=== PATIENT | male | born 1935 | race Caucasian/White ===

== ENCOUNTER 2017-12-09 10:17 | Inpatient (IN) ==
--- NOTE | 2017-12-09 11:11 | ED ---
HPI General Chief complaint: Epistaxis Stated complaint: medical/transfer from [facility] Time Seen by Provider: 12/09/17 10:45 History of Present Illness HPI Narrative: This is an 82-year-old man with epistaxis that was transferred from [facility] in [place] due to apparently no ENT coverage in that town. Patient is on Xarelto and baby aspirin. He arrives with normal vital signs and bilateral Rhino Rocket's in place. He says blood is occasionally trickling down the back of his throat. His Rhino Rocket are both soaked but not bleeding through. Symptom severity is moderate. No alleviating factors. Symptoms exacerbated by his anticoagulants. He has no nasal trauma. Duration 1 day Related Data Allergies Allergy/AdvReac Type Severity Reaction Status Date / Time Sulfa (Sulfonamide Allergy Blister Verified 12/09/17 10:33 Antibiotics) Review of Systems ROS: all other systems reviewed are negative [facility] Social History Social History Substance History: No History of Abuse Second Hand Smoke Exposure: No Smoking Status: Former smoker Tobacco Type: Cigarettes How Often Do You Have a Drink Containing Alcohol: Never Recent Travel in [facility] within the Last 8 Weeks: No Recent Out of Country Travel within the Last 8 Weeks: No Immunization History Tetanus Immunization: Unsure Exam Narrative Exam Narrative: GENERAL: Well-nourished, well-developed patient in no apparent distress. SKIN: Focused skin assessment reveals no rash and nodules. Skin is Warm and dry. HEAD: Atraumatic. Normocephalic. EYES: Pupils equal and round. No scleral icterus. No injection or drainage. ENT: Has bilateral Rhino Rocket in position. The Rhino Rocket blood soaked but not dripping blood. Mucous membranes pink and moist. There is some dried blood in the back of the throat. NECK: Trachea midline. No JVD. CARDIOVASCULAR: Irregularly irregular rhythm. No murmur appreciated. Rate is normal RESPIRATORY: No accessory muscle use. Clear to auscultation. Breath sounds equal bilaterally. GASTROINTESTINAL: Abdomen soft, non-tender, nondistended. Hepatic and splenic margins not palpable. MUSCULOSKELETAL: No obvious deformities. No clubbing. No cyanosis. No edema. NEUROLOGICAL: Awake and alert. No obvious cranial nerve deficits. Motor grossly within normal limits. Normal speech. PSYCHIATRIC: Appropriate mood and affect; insight and judgment normal. Course Initial Documented Vital Signs Temperature 98.6 F 12/09/17 10:27 Pulse Rate 88 12/09/17 10:27 Respiratory Rate 18 12/09/17 10:27 Blood Pressure 126/73 12/09/17 10:27 Pulse Oximetry 96 12/09/17 10:27 Last Documented Vital Signs Temperature 98.6 F 12/09/17 10:27 Pulse Rate 88 12/09/17 10:27 Respiratory Rate 18 12/09/17 10:27 Blood Pressure 126/73 12/09/17 10:27 Pulse Oximetry 96 12/09/17 10:27 Medical Decision Making MDM Narrative Medical decision making narrative: This is a 82-year-old male on blood thinners sent to see ear nose throat with epistaxis and bilateral Rhino Rocket's. His vital signs are normal. His labs have been done. He is anemic with a hemoglobin of 8.6. I placed a call to Dr. Cartagena who has accepted this patient to see if he would rather hospitalize him or come to the emergency room and see the patient. I reviewed the case with both ENT physician Dr. Cartagena and hospitalist. Patient will be admitted. Medical Screen Exam Complete: Yes Emergency Medical Condition: Yes Discharge Plan Discharge Disposition Patient Disposition: 30 Still Patient Discharge Details Diagnosis: Epistaxis, Anticoagulated Physicians Team ED Provider: Tomer Jackman Primary Care Provider: UNKNOWN, Discharge Interventions Interventions: Vital Signs Last Done: 12/09/17 10:56 Status ED Status: With Doctor
--- NOTE | 2017-12-09 13:31 | P.HPIM ---
History of Present Illness Primary Care Physician: UNKNOWN Chief Complaint: Nose bleeding History of Present Illness: 82-year-old white male with a history of atrial fibrillation on chronic anticoagulation Xarelto, coronary artery disease, hypertension who had spontaneous nosebleed starting at 1:00 yesterday afternoon who went to [facility] emergency room and now transferred here in [place] emergency room for evaluation with ENT consult. Since packing was done he still has had on and off nasal bleeding and currently has a rhino pack again. Of note, patient was also diagnosed with iron deficiency anemia and had a comprehensive endoscopy and colonoscopy performed 1 week ago which showed gastritis and colon polyps. He states at that time he did not require transfusion. He denies any heart palpitations nor any dizziness or nor shortness of breath at this time. He denies any nasal pain at this time. He has not taken his home Xarelto since he went to the emergency room. - Diagnosis (1) Epistaxis (2) Anemia due to blood loss (3) Anemia, iron deficiency Review of Systems All other systems reviewed negative except as stated in HPI PMFSH - History History Provided By: Patient, Medical Record - Medical History Medical History: Medical History (Last Updated 12/09/17 @ 13:24 by Claire Valadez MD) Atrial fibrillation Coronary artery disease Diabetes Glaucoma High cholesterol Hypertension Osteoarthritis - Surgical History Surgical History: Surgical History (Last Updated 12/09/17 @ 13:27 by Claire Valadez MD) History of arthroscopic procedure on shoulder Hx of CABG Hx of cholecystectomy Hx of hernia repair Hx of joint replacement - Family History Family History: Family History (Last Updated 12/09/17 @ 13:27 by Claire Valadez MD) Other Family history normal - Social History I have reviewed the patient's Social History: Yes - Tobacco History Second Hand Smoke Exposure: No Tobacco Use In Past 30 Days: No Smoking Status: Former smoker Tobacco Type: Cigarettes - Alcohol History How Often Do You Have a Drink Containing Alcohol: Never - Substance Use History Substance History: No History of Abuse - Travel History Recent Travel in the [place] Within the Last 8 Weeks: No Recent Travel Out of the Country Within the Last 8 Weeks: No - Immunization History Tetanus Immunization: Unsure Medications and Allergies Active Medications: Active Medications Acetaminophen (Tylenol) 650 mg PO Q4H PRN PRN Reason: Temp > 100.4 Al Hydroxide/Mg Hydroxide (Milk Of Magnesia Liq) 30 ml PO Q12H PRN PRN Reason: Mild Constipation Bisacodyl (Dulcolax Supp) 10 mg RECTAL DAILY PRN PRN Reason: SEVERE CONSITIPATION Potassium Chloride/Dextrose/Sod Cl (D5w/1/2ns + Kcl 20 Meq Inj) 1,000 mls @ 80 mls/hr IV.CONT .[id number] MARIA M Stop: 12/10/17 01:59 Lactulose (Lactulose Liq) 30 ml PO DAILY PRN PRN Reason: SEVERE CONSITIPATION Ondansetron HCl (Zofran Inj) 4 mg IV.PUSH Q6H PRN PRN Reason: NAUSEA OR VOMITING Sennosides (Senokot) 17.2 mg PO Q12H PRN PRN Reason: Moderate Constipation Allergies Allergy/AdvReac Type Severity Reaction Status Date / Time Sulfa (Sulfonamide Allergy Blister Verified 12/09/17 10:33 Antibiotics) Home Medications Medication Instructions Recorded Confirmed Type aspirin 81 mg PO QAM 12/09/17 12/09/17 History cyanocobalamin (vitamin B-12) 1,000 mcg PO DAILY 12/09/17 12/09/17 History [Vitamin B-12] docusate sodium [Colace] 100 mg PO DAILY PRN 12/09/17 12/09/17 History dutasteride [Avodart] 0.5 mg PO HS 12/09/17 12/09/17 History fluticasone [Flonase Allergy 2 spray INTRANASAL HS 12/09/17 12/09/17 History Relief] furosemide [Lasix] 20 mg PO DAILY 12/09/17 12/09/17 History glyburide-metformin 1 tab PO BID 12/09/17 12/09/17 History hydrochlorothiazide 25 mg PO QAM 12/09/17 12/09/17 History inulin 2 tab PO HS 12/09/17 12/09/17 History loratadine [Claritin] 10 mg PO QAM 12/09/17 12/09/17 History metoprolol succinate 25 mg PO BID 12/09/17 12/09/17 History brpxywhm-iaq-MI-lycopen-lutein 1 tab PO QPM 12/09/17 12/09/17 History [Centrum Silver] nitroglycerin 0.4 mg SUBLINGUAL Q5-15M PRN 12/09/17 12/09/17 History omeprazole 40 mg PO QAM 12/09/17 12/09/17 History potassium chloride [Klor-Con 10] 10 meq PO BID 12/09/17 12/09/17 History pravastatin 40 mg PO QPM 12/09/17 12/09/17 History rivaroxaban [Xarelto] 15 mg PO QPM 12/09/17 12/09/17 History silodosin [Rapaflo] 4 mg PO DAILY PRN 12/09/17 12/09/17 History temazepam [Restoril] 15 mg PO HS PRN 12/09/17 12/09/17 History Exam Vital signs: Vital Signs 12/09/17 10:27 Temperature 98.6 F Pulse Rate 88 Respiratory Rate 18 Blood Pressure 126/73 Pulse Oximetry 96 Intake & Output 12/08/17 12/09/17 12/09/17 18:59 06:59 18:59 Weight 81.647 kg Narrative: GENERAL: Well-nourished well-developed white male no acute distress SKIN: Warm and dry. HEAD: Atraumatic. Normocephalic. EYES: Pupils equal and round. No scleral icterus. No injection or drainage. ENT: Intermittent bleeding from nasal mucosa, rhino packing in place NECK: Trachea midline. No JVD. CARDIOVASCULAR: Irregular rhythm and regular rate RESPIRATORY: No accessory muscle use. Clear to auscultation. Breath sounds equal bilaterally. GASTROINTESTINAL: Abdomen soft, non-tender, nondistended. Hepatic and splenic margins not palpable. MUSCULOSKELETAL: Extremities without clubbing, cyanosis, trace edema NEUROLOGICAL: Awake and alert. No obvious cranial nerve deficits. Hard of hearing, motor grossly within normal limits. Five out of 5 muscle strength in the arms and legs. Normal speech. PSYCHIATRIC: Appropriate mood and affect; insight and judgment normal. Caprini VTE Risk Assessment Caprini VTE Risk Assessment: Moderate/High Risk (score >= 2) VTE Pharmacological Exception Reason: Active bleeding Caprini Risk Assessment Model: Point Value = 1 Point Value = 2 Point Value = 3 Point Value = 5 Age 41-60 Minor surgery BMI > 25 kg/m2 Swollen legs Varicose veins or History of unexplained or recurrent spontaneous Oral contraceptives or hormone replacement Sepsis (< 1 month) Serious lung disease, including pneumonia (< 1 month) Abnormal pulmonary function Acute myocardial infarction Congestive heart failure (< 1 month) History of inflammatory bowel disease Medical patient at bed rest Age 61-74 Arthroscopic surgery Major open surgery (> 45 min) Laparoscopic surgery (> 45 min) Malignancy Confined to bed (> 72 hours) Immobilizing plaster cast Central venous access Age >= 75 History of VTE Family history of VTE Factor V Leiden Prothrombin [id number] Lupus anticoagulant Anticardiolipin antibodies Elevated serum homocysteine Heparin-induced thrombocytopenia Other congenital or acquired thrombophilia Stroke (< 1 month) Elective arthroplasty Hip, pelvis, or leg fracture Acute spinal cord injury (< 1 month) Prophylaxis Regimen: Total Risk Factor Score Risk Level Prophylaxis Regimen 0-1 Low Early ambulation 2 Moderate Order ONE of the following: *Sequential Compression Device (SCD) *Heparin 5000 units SQ BID 3-4 Higher Order ONE of the following medications: *Heparin 5000 units SQ TID *Enoxaparin/Lovenox 40 mg SQ daily (WT < 150 kg, CrCl > 30 mL/min) *Enoxaparin/Lovenox 30 mg SQ daily (WT < 150 kg, CrCl > 10-29 mL/min) *Enoxaparin/Lovenox 30 mg SQ BID (WT < 150 kg, CrCl > 30 mL/min) AND/OR *Sequential Compression Device (SCD) 5 or more Highest Order ONE of the following medications: *Heparin 5000 units SQ TID (Preferred with Epidurals) *Enoxaparin/Lovenox 40 mg SQ daily (WT < 150 kg, CrCl > 30 mL/min) *Enoxaparin/Lovenox 30 mg SQ daily (WT < 150 kg, CrCl > 10-29 mL/min) *Enoxaparin/Lovenox 30 mg SQ BID (WT < 150 kg, CrCl > 30 mL/min) AND *Sequential Compression Device (SCD) Assessment and Plan - Assessment (1) Epistaxis Code(s): R04.0 - Epistaxis Status: Acute (2) Anemia due to blood loss Code(s): D50.0 - Iron deficiency anemia secondary to blood loss (chronic) Status: Acute (3) Anemia, iron deficiency Code(s): D50.9 - Iron deficiency anemia, unspecified Status: Chronic - Plan 82-year-old white male with a history of chronic atrial fibrillation on home Xarelto, coronary artery disease, hypertension presented to the [facility] emergency room with spontaneous nosebleed and was transferred here for ENT evaluation 1. Acute spontaneous epistaxis likely due to Xarelto usestop anticoagulation, monitor hemoglobin. Status post nasal packing and await ENT evaluation for further recommendations. 2. Acute on chronic iron deficiency anemia due to spontaneous nosebleed hemoglobin 8.6 in [facility] emergency room, will repeat another level this afternoon. Transfuse if hemoglobin continues to drop. 3. Coronary artery disease history-hold aspirin due to epistaxis, continue home metoprolol 4. History of chronic atrial fibrillationstop home Xarelto 5. DVT prophylaxisbilateral SCDs, no anticoagulation due to bleed. 6. Diabetes mellitus type 2currently n.p.o. status until evaluated by ENT, will hold home medications. Will start sliding scale insulin with coverage. (3) Anemia, iron deficiency Qualifiers: Iron deficiency anemia type: unspecified iron deficiency Qualified Code(s): D50.9 - Iron deficiency anemia, unspecified
[2017-12-09] MEDS ORDERED: Dextrose 50% in Water 50 ML Vial IV.PUSH PRN (13:33)
[2017-12-09] MEDS ORDERED: Bisacodyl 10 MG Supp RECTAL PRN (15:00)
[2017-12-09] MEDS ORDERED: Acetaminophen 325 MG Tablet PO PRN (15:00)
[2017-12-09] MEDS ORDERED: KCL 20 mEq/D5W/NaCl 0.45% Inj 1,000 ML IV.CONT SCH (15:00)
[2017-12-09] MEDS: hydroCHLOROthiazide 25 MG Tablet PO SCH (15:32)
[2017-12-09] MEDS: Loratadine 10 MG Tablet PO SCH (15:32)
[2017-12-09] MEDS: Insulin NovoLOG Aspart Correctional Sugar Inj SQ SCH ×3 (17:22→21:02)
[2017-12-09 20:17] LABS: Hematocrit 23.8 % (39.0-51.0); Hemoglobin 7.6 gm/dL (13.0-17.0)
[2017-12-09] MEDS: Finasteride 5 MG Tablet PO SCH (20:51)
--- NOTE | 2017-12-09 22:03 | MB ---
cc: Bandar Cartagena MD DATE: 12/09/2017 CHIEF COMPLAINT: Epistaxis. HISTORY OF PRESENT ILLNESS: The patient is a pleasant 82-year-old male with multiple medical history and anemia. He was noted to have severe epistaxis which necessitated having bilateral Rhino Rockets placed. Because of the challenges with this and the patient still noted to have oozing at the time of the placement, the patient was transferred to [place] for further management and observation. Of note, his hemoglobin was in the 8's prior to transfer. The patient is quite stable today, however. He has had some trickling through his nose and into the back of his throat and his nose, but he has done well over the last few hours. PHYSICAL EXAMINATION: This evening, the patient is currently stable and oriented. Nasal packs are in place bilaterally with no active bleeding. On examination of the oropharynx as well, there is no active bleeding currently. ASSESSMENT: Refractory epistaxis. PLAN: Because the patient has a history of blood thinners as well as multiple medical problems and challenging epistaxis needing bilateral nasal packing, the patient will need to be in the hospital at least the next 48 hours, possibly 72 depending on how stable his H and H are as well as how well he is medically overall with his multiple medical problems. He is on blood thinners. I discussed with nursing with his meals having nothing that would increase risk of nosebleeds. That would include any kind of hot foods or any foods needing any heavy chewing as both of these can produce a blood clot and cause further nosebleeds. I also recommend the patient having better control of his high blood pressure as it is the 150s systolic this evening. I appreciate the hospital staff for overall care of the patient. Bandar Cartagena MD PCC/jl , 09:34 PM , 09:43 PM
[2017-12-10 07:50] LABS: Baso # (Auto) 0.1 th/mm3 (0.0-0.2); Baso % (Auto) 1.1 % (0.0-2.0); Eos # (Auto) 0.1 th/mm3 (0.0-0.4); Eos % (Auto) 1.2 % (0.0-4.0); Hematocrit 22.7 % (39.0-51.0); Hemoglobin 7.1 gm/dL (13.0-17.0); Lymph # (Auto) 0.9 th/mm3 (1.0-4.8); Lymph % (Auto) 13.4 % (9.0-44.0); Mean Corpuscular HGB Conc 31.2 % (32.0-36.0); Mean Corpuscular Volume 76.8 fL (80.0-100.0); Mean Platelet Volume 8.3 fL (7.0-11.0); Mono # (Auto) 0.9 th/mm3 (0.0-0.9); Mono % (Auto) 13.7 % (0.0-8.0); Neut # (Auto) 4.7 th/mm3 (1.8-7.7); Neut % (Auto) 70.6 % (16.0-70.0); Platelet Count 180 th/mm3 (150-450); Red Blood Count 2.96 mil/mm3 (4.50-5.90); Red Cell Distribution Width 19.1 % (11.6-17.2); White Blood Count 6.7 th/mm3 (4.0-11.0)
[2017-12-10] MEDS: Loratadine 10 MG Tablet PO SCH (09:42)
[2017-12-10] MEDS: Furosemide 20 MG Tablet PO SCH (09:42)
[2017-12-10] MEDS: Insulin NovoLOG Aspart Correctional Sugar Inj SQ SCH ×4 (09:42→21:19)
[2017-12-10] MEDS: hydroCHLOROthiazide 25 MG Tablet PO SCH (09:43)
--- NOTE | 2017-12-10 10:08 | P.PN ---
Subjective Interval history: Follow up for epistaxis. The patient reports his nasal bleeding has slowed down , only small amount of blood trickling around the nares. He denies any headache or lightheadedness. Denies any chest pain or shortness of breath. He states he has had the Rhino Rockets in place since Wednesday 12/06. Physical Exam Vital signs: Vital Signs 12/09/17 10:27 12/09/17 14:00 12/09/17 16:39 Temperature 98.6 F 96.9 F L Pulse Rate 88 89 80 Respiratory Rate 18 17 16 Blood Pressure 126/73 132/81 151/73 H Pulse Oximetry 96 96 91 L 12/09/17 20:00 12/10/17 00:00 12/10/17 04:00 Temperature 97.9 F 98.2 F 97.9 F Pulse Rate 94 H 83 92 H Respiratory Rate 16 20 20 Blood Pressure 151/76 H 150/77 H 136/75 Pulse Oximetry 95 95 97 12/10/17 08:00 Temperature 97.5 F L Pulse Rate 85 Respiratory Rate 18 Blood Pressure 137/70 Pulse Oximetry 93 L Intake & Output 12/09/17 12/10/17 12/10/17 18:59 06:59 18:59 Intake Total 1000 / 1000 Balance 1000 / 1000 Weight 81.647 kg Intake: IV 1000 / 1000 D5W/1/2NS + KCL 20 mEq Inj 1, 1000 / 1000 000 ML @ 80 mls/hr IV.CONT . [id number] [facility] Rx#:[id number] Other: Date of Last Bowel Movement 12/09/17 # Bowel Movements 2 Narrative: GENERAL: Well-nourished, well-developed pleasant elderly male patient in [facility]. SKIN: Warm and dry. No rash. HEENT: Normocephalic. Atraumatic. Mucous membranes pink and moist. Bilateral Rhino Rockets in place, with some blood around the nares without active drainage. Posterior oropharynx clear. CARDIOVASCULAR: Irregular rate and rhythm. 2/6 murmur noted. RESPIRATORY: No accessory muscle use. Clear to auscultation. Breath sounds equal bilaterally. GASTROINTESTINAL: Abdomen soft, non-tender, nondistended. Normoactive bowel sounds x4. MUSCULOSKELETAL: No obvious deformities. Extremities without clubbing, cyanosis , or edema. NEUROLOGICAL: Awake and alert. No obvious cranial nerve deficits. Motor grossly within normal limits. Moving all extremities spontaneously. Normal speech. PSYCHIATRIC: Appropriate mood and affect; insight and judgment normal. Results - Labs CBC & Chem 7: 12/10/17 07:15 Laboratory Results - last 24 hr 12/09/17 12/09/17 12/09/17 17:04 17:05 19:06 WBC RBC Hgb 7.6 L Hct 23.8 L MCV MCH MCHC RDW Plt Count MPV Neut % (Auto) Lymph % (Auto) [place] % (Auto) Eos % (Auto) Baso % (Auto) Neut # (Auto) Lymph # (Auto) [place] # (Auto) Eos # (Auto) Baso # (Auto) WBC Differential Differential Comment POC Glucose 203 H 198 H 12/09/17 12/10/17 12/10/17 20:59 07:15 08:27 WBC 6.7 RBC 2.96 L Hgb 7.1 L Hct 22.7 L MCV 76.8 L MCH 24.0 L MCHC 31.2 L RDW 19.1 H Plt Count 180 MPV 8.3 Neut % (Auto) 70.6 H Lymph % (Auto) 13.4 [place] % (Auto) 13.7 H Eos % (Auto) 1.2 Baso % (Auto) 1.1 Neut # (Auto) 4.7 Lymph # (Auto) 0.9 L [place] # (Auto) 0.9 Eos # (Auto) 0.1 Baso # (Auto) 0.1 WBC Differential . Differential Comment Auto diff final POC Glucose 250 H 217 H Assessment and Plan - Assessment (1) Epistaxis Code(s): R04.0 - Epistaxis Status: Acute (2) Anemia due to blood loss Code(s): D50.0 - Iron deficiency anemia secondary to blood loss (chronic) Status: Acute (3) Anemia, iron deficiency Code(s): D50.9 - Iron deficiency anemia, unspecified Status: Chronic - Plan 82-year-old white male with a history of chronic atrial fibrillation on home Xarelto, coronary artery disease, hypertension presented to the [facility] emergency room with spontaneous nosebleed and was transferred here for ENT evaluation Acute spontaneous epistaxis: secondary to Xarelto/aspirin use. -Continue bilateral Rhino Rockets placed at [facility] on 12/06 -hold anticoagulation for now -monitor serial H&H, currently Hgb 7.1 -Consult ENT, appreciate recommendations, recommends continued hospitalization/observation x48-72 hours Acute on chronic iron deficiency anemia: due to spontaneous nosebleed -hemoglobin 8.6 in [facility] ED, now 7.6 --> 7.1 -will repeat another level this afternoon. 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 -hold aspirin due to epistaxis -continue home metoprolol Atrial fibrillation: chronic, rate cnotrolled -stop home Xarelto with ongoing epistaxis and anemia -follow up with [facility] returner as outpatient Diabetes mellitus type 2: chronic -holding patient's metformin -Monitor Accu-checks and cover with SSI DVT prophylaxisbilateral SCDs, no anticoagulation due to bleed. (3) Anemia, iron deficiency Qualifiers: Iron deficiency anemia type: unspecified iron deficiency Qualified Code(s): D50.9 - Iron deficiency anemia, unspecified
[2017-12-10 16:09] LABS: Hematocrit 22.5 % (39.0-51.0); Hemoglobin 7.1 gm/dL (13.0-17.0)
[2017-12-10] MEDS: Finasteride 5 MG Tablet PO SCH (21:20)
[2017-12-11 08:28] LABS: Mean Corpuscular HGB Conc 31.9 % (32.0-36.0); Mean Corpuscular Hemoglobin 24.5 pg (27.0-34.0); Mean Corpuscular Volume 76.7 fL (80.0-100.0); Mean Platelet Volume 8.6 fL (7.0-11.0); Platelet Count 165 th/mm3 (150-450); Red Blood Count 2.77 mil/mm3 (4.50-5.90); Red Cell Distribution Width 19.3 % (11.6-17.2); White Blood Count 6.7 th/mm3 (4.0-11.0)
[2017-12-11 08:55] LABS: Carbon Dioxide 29.2 meq/L (21.0-32.0)
[2017-12-11 09:07] LABS: Hemoglobin 6.8 gm/dL (13.0-17.0)
[2017-12-11] MEDS: hydroCHLOROthiazide 25 MG Tablet PO SCH (09:07)
[2017-12-11 09:08] LABS: Hematocrit 21.3 % (39.0-51.0)
[2017-12-11] MEDS: Furosemide 20 MG Tablet PO SCH (09:08)
[2017-12-11] MEDS: Loratadine 10 MG Tablet PO SCH (09:08)
[2017-12-11] MEDS: Insulin NovoLOG Aspart Correctional Sugar Inj SQ SCH ×4 (09:19→20:40)
--- NOTE | 2017-12-11 09:33 | P.PN ---
Subjective Interval history: Follow up for epistaxis, anemia. The patient reports some continued trickling of blood around the nares overnight. Denies any hemoptysis or blood in the oropharynx. Hemoglobin dropped to 6.8, agrees to blood transfusion. The patient reports chronic history of iron deficiency anemia and is supposed to be on iron supplements. He denies any melena or hematochezia. Denies any abdominal pain, nausea/vomiting, or diarrhea. Denies any chest pain. He states he has shortness of breath at baseline since his heart surgeries, but denies any recent worsening. Denies any lightheadedness/dizziness. He has no other medical complaints at this time. Physical Exam Vital signs: Vital Signs 12/10/17 12:00 12/10/17 16:00 12/10/17 20:00 Temperature 97.5 F L 97.6 F 97.6 F Pulse Rate 86 76 68 Respiratory Rate 18 20 17 Blood Pressure 132/68 163/84 H 154/93 H Pulse Oximetry 97 96 98 12/11/17 00:00 12/11/17 04:00 12/11/17 08:00 Temperature 98.0 F 97.5 F L 99.1 F Pulse Rate 88 77 96 H Respiratory Rate 18 18 16 Blood Pressure 129/66 150/84 H 101/66 Pulse Oximetry 96 95 96 Intake & Output 12/10/17 12/11/17 12/11/17 18:59 06:59 18:59 Intake Total 600 / 600 Output Total 250 / 250 Balance 350 / 350 Intake: Oral 600 / 600 Output: Urine 250 / 250 Other: # Voids 1 4 Date of Last Bowel Movement 12/10/17 12/10/17 # Bowel Movements 1 Narrative: GENERAL: Well-nourished, well-developed pleasant elderly male patient in [facility]. SKIN: Warm and dry. No rash. HEENT: Normocephalic. Atraumatic. Mucous membranes pink and moist. Bilateral Rhino Rockets in place, with some dried blood around the nares without active drainage. Posterior oropharynx clear. CARDIOVASCULAR: Irregular rate and rhythm. 2/6 murmur noted. RESPIRATORY: No accessory muscle use. Clear to auscultation. Breath sounds equal bilaterally. GASTROINTESTINAL: Abdomen soft, non-tender, nondistended. Normoactive bowel sounds x4. MUSCULOSKELETAL: No obvious deformities. Extremities without clubbing, cyanosis , or edema. NEUROLOGICAL: Awake and alert. No obvious cranial nerve deficits. Motor grossly within normal limits. Moving all extremities spontaneously. Normal speech. PSYCHIATRIC: Appropriate mood and affect; insight and judgment normal. Results - Labs CBC & Chem 7: 12/11/17 06:28 12/11/17 06:28 Laboratory Results - last 24 hr 12/10/17 12/10/17 12/10/17 12:05 15:50 17:56 WBC RBC Hgb 7.1 L Hct 22.5 L MCV MCH MCHC RDW Plt Count MPV Sodium Potassium Chloride Carbon Dioxide Anion Gap BUN Creatinine Estimated GFR POC Glucose 312 H 77 Random Glucose Calcium 12/10/17 12/11/17 12/11/17 21:13 06:28 06:28 WBC 6.7 RBC 2.77 L Hgb 6.8 L* Hct 21.3 L MCV 76.7 L MCH 24.5 L MCHC 31.9 L RDW 19.3 H Plt Count 165 MPV 8.6 Sodium 140 Potassium 3.0 L Chloride 104 Carbon Dioxide 29.2 Anion Gap 7 BUN 29 H Creatinine 1.03 Estimated GFR 69 L POC Glucose 208 H Random Glucose 146 H Calcium 9.0 12/11/17 08:13 WBC RBC Hgb Hct MCV MCH MCHC RDW Plt Count MPV Sodium Potassium Chloride Carbon Dioxide Anion Gap BUN Creatinine Estimated GFR POC Glucose 186 H Random Glucose Calcium Assessment and Plan - Assessment (1) Epistaxis Code(s): R04.0 - Epistaxis Status: Acute (2) Anemia due to blood loss Code(s): D50.0 - Iron deficiency anemia secondary to blood loss (chronic) Status: Acute (3) Anemia, iron deficiency Code(s): D50.9 - Iron deficiency anemia, unspecified Status: Chronic - Plan 82-year-old white male with a history of chronic atrial fibrillation on home Xarelto, coronary artery disease, hypertension presented to the [place] emergency room with spontaneous nosebleed and was transferred here for ENT evaluation Acute spontaneous epistaxis: secondary to Xarelto/aspirin use. -Continue bilateral Rhino Rockets placed at [facility] on 12/06 -hold anticoagulation for now -monitor serial H&H, currently Hgb 6.8, transfusing as below -Consult ENT, appreciate recommendations, recommends continued hospitalization/observation x48-72 hours Acute on chronic iron deficiency anemia: due to spontaneous nosebleed, rule out other etiology. Patient reports long hx of iron deficiency. 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 -hold aspirin due to epistaxis -continue home metoprolol Atrial fibrillation: chronic, rate controlled -stop home Xarelto with ongoing epistaxis and anemia -follow up with illuminator as outpatient (has illuminator in [place]) Diabetes mellitus type 2: chronic -holding patient's metformin -Monitor Accu-checks and cover with SSI DVT prophylaxisbilateral SCDs, no anticoagulation due to bleed. (3) Anemia, iron deficiency Qualifiers: Iron deficiency anemia type: unspecified iron deficiency Qualified Code(s): D50.9 - Iron deficiency anemia, unspecified
[2017-12-11] MEDS ORDERED: Sodium Chlor 0.9% Inj 250 ML IV.SIG SCH (10:00)
--- NOTE | 2017-12-11 13:07 | MB ---
cc: Bandar Cartagena MD DATE: 12/11/2017 Nursing has noted no nosebleeds at all today and in her reporting from last night, no bleeding then, either . Notes no bleeding, no coughing up any blood or signs of any blood from the nose at all recently. However, the patient continues to have a downward trending H and H with the nasal balloons in place bilaterally regardless. The patient is being prepped to get a transfusion today because of the hemoglobin decreased to 6.8 this morning and the hematocrit is 21.3. Recommend a full workup for another source of bleeding at this time, as the numbers are still trending downward. Furthermore, if there is any nose bleeding at all from the front of the nose or is seen at all dripping down the back of his throat at all, I recommend interventional radiology for treatment of any future nosebleeds as nasal packs were already in place and if that does not prove successful, then I recommend interventional radiology for the next step. Again, please consider any other sources of bleeding for this patient, be it GI bleed or any other sources and if there is any future nosebleeds I recommend interventional radiology. Thank you for this consultation. Please contact ENT with any other further concerns. Bandar Cartagena MD PCC/ct/pc , 10:33 AM , 10:40 AM MTDD
[2017-12-11 13:21] LABS: % Iron Saturation 4.8 % (20-50); Folate 18.7 ng/mL (3.1-17.5)
[2017-12-11] MEDS: Ferrous Sulfate 325 MG Tablet PO SCH ×2 (13:53→20:10)
[2017-12-11] MEDS: Finasteride 5 MG Tablet PO SCH (20:42)
[2017-12-11 23:03] LABS: INR 1.4 Ratio; Prothrombin Time 13.8 sec (9.8-11.6)
[2017-12-12] MEDS ORDERED: Phytonadione 5 MG/SWFI 5 ML Oral Syringe PO ONE (05:36)
[2017-12-12] MEDS ORDERED: Sodium Chloride 0.9% 2 ML Flush PRN IV.FLUSH (05:38)
[2017-12-12 07:05] LABS: Hematocrit 22.7 % (39.0-51.0); Hemoglobin 7.4 gm/dL (13.0-17.0); Mean Corpuscular HGB Conc 32.6 % (32.0-36.0); Mean Corpuscular Hemoglobin 25.1 pg (27.0-34.0); Mean Platelet Volume 8.7 fL (7.0-11.0); Platelet Count 165 th/mm3 (150-450); Red Blood Count 2.95 mil/mm3 (4.50-5.90); Red Cell Distribution Width 19.9 % (11.6-17.2); White Blood Count 6.2 th/mm3 (4.0-11.0)
[2017-12-12 07:29] LABS: Calcium 9.1 mg/dL (8.5-10.1); Carbon Dioxide 27.3 meq/L (21.0-32.0); Potassium 3.4 meq/L (3.5-5.1)
[2017-12-12] MEDS: Insulin NovoLOG Aspart Correctional Sugar Inj SQ SCH ×4 (07:48→22:37)
[2017-12-12] MEDS ORDERED: fentaNYL Citrate Inj 250 MCG/5 ML Ampul ONE (07:58)
--- NOTE | 2017-12-12 08:25 | P.RAD ---
Radiology Note 82 Y/O with continued epistaxis despite packing and discontinuation of Xelerto since 12/05. Pt. has been managed conservatively and continues to soak through the packing and has required transfusion. We are asked to proceed with embolization by Dr. Cartagena. The risk, benefits and potential complications were discussed. Pt understands there is a low risk of stroke and blindness. Signed consent obtained.
[2017-12-12] MEDS ORDERED: ceFAZolin 2 GM Premix Inj 2 GM/50 ML PIGGYBACK IV.SIG ONE (08:44)
[2017-12-12] MEDS ORDERED: Heparin 10,000 UNITS/10 ML Vial (for IV use) ONE ×2 (09:54→19:02)
[2017-12-12] MEDS ORDERED: Protamine Sulfate Inj 50 MG/5 ML Vial ONE ×2 (10:07→19:15)
--- NOTE | 2017-12-12 10:15 | P.RAD ---
Post Procedure Progress Note - Pre Procedure Diagnosis (1) Epistaxis - Post Procedure Diagnosis (1) Epistaxis - Procedure Information Procedure Date: 12/12/17 Supervising Radiologist: Davie Schultz MD Estimated blood loss (mL): 5 Anesthesia: Local, Conscious Sedation - Plan of Activity Patient to Unit: PACU Patient Condition: Good Additional Comments: Angio completed with embolization of the Left distal IMax territory. No active bleeding evident post embolization. Right side was not evaluated due to type III arch and cessation of bleeding post embolization of the left side. If patient has another episode of bleeding right side can be evaluated however embolization of this would be difficult secondary to arch configuration. Patient tolerated the procedure well. Neurologically intact post procedure Full report to follow See PACS Report for procedural detail/treatment.
--- NOTE | 2017-12-12 11:43 | P.PN ---
Subjective Interval history: Follow up for epistaxis, anemia. Patient seen status post angiogram with embolization procedure by IR. The patient is drowsy but arousable. He states he did not have any significant bleeding around the nares overnight. Denies any bleeding into the posterior oropharynx. Denies any headache, lightheadedness, dizziness, or chest pain. He has not yet had a bowel movement to collect stool Hemoccult. Physical Exam Vital signs: Vital Signs 12/11/17 16:00 12/11/17 17:05 12/11/17 17:22 Temperature 99.0 F 99.0 F 98 F Pulse Rate 84 84 80 Respiratory Rate 16 16 20 Blood Pressure 132/80 132/89 150/86 H Pulse Oximetry 96 97 12/11/17 20:00 12/11/17 20:20 12/11/17 21:47 Temperature 97.4 F L 98.2 F 97.7 F Pulse Rate 83 86 81 Respiratory Rate 18 16 17 Blood Pressure 98/69 L 180/76 H 189/80 H Pulse Oximetry 98 96 96 12/11/17 23:53 12/12/17 05:29 12/12/17 07:49 Temperature 98.1 F 97.7 F 98 F Pulse Rate 88 97 H 88 Respiratory Rate 18 18 18 Blood Pressure 124/69 145/81 H 132/78 Pulse Oximetry 94 L 96 97 12/12/17 08:00 12/12/17 10:15 12/12/17 11:11 Temperature 97.7 F 97.8 F 96.8 F L Pulse Rate 66 85 85 Respiratory Rate 20 22 18 Blood Pressure 132/75 144/79 H 145/77 H Pulse Oximetry 97 91 L 98 Intake & Output 12/11/17 12/12/17 12/12/17 19:59 06:59 18:59 Intake Total 300 / 300 Output Total Balance 300 / 300 Intake: IV 300 / 300 NS Inj 250 ML @ 15 mls/hr IV. 250 / 250 SIG ONCE MARIA M Rx#:[id number] Ancef 2 GM Premix Inj 2 gm In 50 / 50 50 ml @ 0 mls/hr IV.SIG .STK- MED ONE Rx#:[id number] Intake (Blood Product) Amt Rbc As-3 Leukoreduced Unit [id number] Output: Urine Other: # Voids 3 Narrative: GENERAL: Well-nourished, well-developed pleasant elderly male patient in [facility]. SKIN: Warm and dry. No rash. HEENT: Normocephalic. Atraumatic. Mucous membranes pink and moist. Bilateral Rhino Rockets in place, soaked with dark red blood, with some dried blood around the nares without active drainage. Posterior oropharynx clear. CARDIOVASCULAR: Irregular rate and rhythm. 2/6 murmur noted. RESPIRATORY: No accessory muscle use. Clear to auscultation. Breath sounds equal bilaterally. GASTROINTESTINAL: Abdomen soft, non-tender, nondistended. Normoactive bowel sounds x4. MUSCULOSKELETAL: No obvious deformities. Extremities without clubbing, cyanosis , or edema. NEUROLOGICAL: Awake and alert. No obvious cranial nerve deficits. Motor grossly within normal limits. Moving all extremities spontaneously. Normal speech. PSYCHIATRIC: Appropriate mood and affect; insight and judgment normal. Results - Labs CBC & Chem 7: 12/13/17 03:21 12/13/17 03:21 Laboratory Results - last 24 hr 12/11/17 12/11/17 12/11/17 06:28 11:06 13:36 WBC RBC Hgb Hct MCV MCH MCHC RDW Plt Count MPV PT INR Fibrinogen Sodium Potassium Chloride Carbon Dioxide Anion Gap BUN Creatinine Estimated GFR POC Glucose 259 H Random Glucose Calcium Iron 15 L TIBC 314 % Saturation 4.8 L Ferritin 20 L Vitamin B12 891 Folate 18.7 H Blood Type O Positive Blood Type Recheck Required Antibody Screen Negative MTS Gel Crossmatch See Detail 12/11/17 12/11/17 12/11/17 17:16 20:34 22:20 WBC RBC Hgb Hct MCV MCH MCHC RDW Plt Count MPV PT 13.8 H INR 1.4 Fibrinogen 236 Sodium Potassium Chloride Carbon Dioxide Anion Gap BUN Creatinine Estimated GFR POC Glucose 285 H 179 H Random Glucose Calcium Iron TIBC % Saturation Ferritin Vitamin B12 Folate Blood Type Blood Type Recheck Antibody Screen MTS Gel Crossmatch 12/12/17 12/12/17 12/12/17 06:20 06:20 07:43 WBC 6.2 RBC 2.95 L Hgb 7.4 L Hct 22.7 L MCV 77.0 L MCH 25.1 L MCHC 32.6 RDW 19.9 H Plt Count 165 MPV 8.7 PT INR Fibrinogen Sodium 140 Potassium 3.4 L Chloride 105 Carbon Dioxide 27.3 Anion Gap 8 BUN 30 H Creatinine 0.97 Estimated GFR 74 L POC Glucose 207 H Random Glucose 179 H Calcium 9.1 Iron TIBC % Saturation Ferritin Vitamin B12 Folate Blood Type Blood Type Recheck Antibody Screen MTS Gel Crossmatch 12/12/17 10:23 WBC RBC Hgb Hct MCV MCH MCHC RDW Plt Count MPV PT INR Fibrinogen Sodium Potassium Chloride Carbon Dioxide Anion Gap BUN Creatinine Estimated GFR POC Glucose 202 H Random Glucose Calcium Iron TIBC % Saturation Ferritin Vitamin B12 Folate Blood Type Blood Type Recheck Antibody Screen MTS Gel Crossmatch - Procedures 12/12/17Angio with embolization of the Left distal IMax territory, performed by IR Dr. Schultz Assessment and Plan - Assessment (1) Epistaxis Code(s): R04.0 - Epistaxis Status: Acute (2) Anemia due to blood loss Code(s): D50.0 - Iron deficiency anemia secondary to blood loss (chronic) Status: Acute (3) Anemia, iron deficiency Code(s): D50.9 - Iron deficiency anemia, unspecified Status: Chronic - Plan 82-year-old white male with a history of chronic atrial fibrillation on home Xarelto, coronary artery disease, hypertension presented to the [place] emergency room with spontaneous nosebleed and was transferred here for ENT evaluation Acute spontaneous epistaxis: secondary to Xarelto/aspirin use. -Continue bilateral Rhino Rockets placed at [facility] on 12/06 -holding anticoagulation for now -monitor serial H&H, currently Hgb 6.8, s/p transfusion -Consult ENT, appreciate recommendations -IR consulted, performed Angio with embolization of the Left distal IMax territory on 12/12 -Continue to monitor -1330hrs: Patient seen again with Dr. Cartagena at beside. Patient with recurrent bleeding post embolization. Dr. Cartagena re-inflated balloon packing, also given additional 150mg of protamine. Bleeding stabilizing. Dr. Cartagena recommended start on prophylactic antibiotics with IV Ancef, check repeat H&H and transfuse 2units pRBCs. -Addendum 1600hrs: Halicat called. Patient vomited large amount of hematemesis with clots, filled bottom of large basin, suspected from posterior epistaxis. Patient diaphoretic and lightheaded, although vital signs currently stable. Blood transfusion ordered earlier today now available in blood bank, instructed RN to begin transfusion stat. Transferred to critical care. Discussed with Dr. Schultz, patient will likely undergo repeat embolization today under general anesthesia. Call placed to Dr. Cartagena by charge nurse. Dr. Schultz to discuss with on-call diesel technology instructor. Acute on chronic iron deficiency anemia: due to spontaneous nosebleed, rule out other etiology. Patient reports long hx of iron deficiency. 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 -holding aspirin due to epistaxis -continue home metoprolol Atrial fibrillation: chronic, rate controlled -stop home Xarelto for now with ongoing epistaxis and anemia -follow up with exchange engineer as outpatient (has exchange engineer in [place]) Diabetes mellitus type 2: chronic -holding patient's metformin -Monitor Accu-checks and cover with SSI DVT prophylaxisbilateral SCDs, no anticoagulation due to bleed/anemia I spent 35 minutes [id number] with the patient or on the polo discussing the patient's disposition, prognosis, and plan of care with his caregivers. Over half the time spent was devoted to counseling the patient regarding placement in coordinating care with caregivers (3) Anemia, iron deficiency Qualifiers: Iron deficiency anemia type: unspecified iron deficiency Qualified Code(s): D50.9 - Iron deficiency anemia, unspecified
[2017-12-12] MEDS: hydroCHLOROthiazide 25 MG Tablet PO SCH (13:17)
[2017-12-12] MEDS: Ferrous Sulfate 325 MG Tablet PO SCH ×2 (13:18→17:55)
[2017-12-12] MEDS: Loratadine 10 MG Tablet PO SCH (13:18)
[2017-12-12] MEDS: Furosemide 20 MG Tablet PO SCH (13:21)
[2017-12-12] MEDS: Sodium Chloride 0.9% 2 ML Flush BID IV.FLUSH SCH ×2 (13:22→22:37)
[2017-12-12] MEDS ORDERED: Protamine Sulfate Inj 50 MG/5 ML Vial IV.PUSH ONE (14:00)
[2017-12-12] MEDS ORDERED: Sodium Chlor 0.9% Inj 250 ML IV.SIG SCH (14:30)
--- NOTE | 2017-12-12 14:51 | MB ---
cc: Bandar Cartagena MD DATE: 12/12/2017 The patient had a left internal maxillary embolization by interventional radiology earlier today. I appreciate their assistance. He recently had an acute episode of nosebleed from the left side. Interventional radiology is aware and are awaiting at the patient's bedside with me to assess the patient. I did note that the left nasal balloon was deflated, and I reinflated it. There was obvious fresh blood in the nasal wound, left side much more so than the right side. After inflating the balloons, rechecking the patient back afterwards, observing him for half hour afterwards, the bleeding did not stop. Interventional radiology may consider further embolization in the next 24 hours. As the patient had further episodes of bleeding after receiving protamine, I discussed with interventional radiology and probably best to have the patient n.p.o. currently with his bleeding episodes and to likely have him n.p.o. until tomorrow morning in case he has to go back for further procedure as the radiologist noted that it is possible that they may need a general anesthetic next time if needed. I discussed with nursing to have the patient gently gargle with ice chips as needed. I also recommend if the patient appropriate to have 2 units of packed red blood cells for transfusion at this time as he still has low H and H. We will continue to follow. Bandar Cartagena MD [facility]/ , 01:42 PM , 01:50 PM
[2017-12-12] MEDS: ceFAZolin 1 GM Premix Inj 1 GM/50 ML FROZ.PIGGY IV.SIG SCH ×2 (15:43→23:41)
[2017-12-12 16:00] LABS: Hemoglobin 7.1 gm/dL (13.0-17.0)
--- NOTE | 2017-12-12 17:33 | MB ---
cc: Bandar Cartagena MD DATE: 12/12/2017 NOTE: The patient had an interventional radiology embolization of his left distal internal maxillary artery territory. He was resting in his room when he started having spontaneous bleeding from his left side. For the last half hour. Bandar Galaviz. MD THANH Cartagena/fatuma/bereket , 01:29 PM , 01:34 PM
[2017-12-12] MEDS ORDERED: fentaNYL Citrate Inj 100 MCG/2 ML Ampul ONE (18:58)
--- NOTE | 2017-12-12 19:30 | P.RAD ---
Post Procedure Progress Note - Pre Procedure Diagnosis (1) Epistaxis (2) Anemia due to blood loss - Post Procedure Diagnosis (1) Epistaxis (2) Anemia due to blood loss - Procedure Information Procedure Date: 12/12/17 Supervising Radiologist: Davie Schultz MD Estimated blood loss (mL): 5 Anesthesia: General - Plan of Activity Patient to Unit: PACU Patient Condition: Poor Additional Comments: Pt post left Imax embolized this am. Right was not done at that time secondary to cessation of hemorrhage and very difficult anatomy (type III) arch. Called back to see patient approximately 7 hours post secondary to recurrent severe epistaxis. Angio completed. Neuron Max sheath was eventually passed into the right carotid system. Distal branches of the right IMAX were canulated and embolized with 500-700um PVA. Nasal balloons were deflated and patient was observed for 10 min. No bleeding identified. Pt. had been given 4000 of heparin for the procedure. This was reversed, nasal balloons were inflated. Pt. transferred to PACU in good condition. See PACS Report for procedural detail/treatment.
[2017-12-12] MEDS ORDERED: Haloperidol Inj 5 MG/ML Ampul IM ONE (20:41)
[2017-12-12] MEDS: Finasteride 5 MG Tablet PO SCH (20:59)
[2017-12-13] MEDS ORDERED: Haloperidol Inj 5 MG/ML Ampul IM ONE (01:24)
[2017-12-13 05:21] LABS: Baso % (Auto) 0.3 % (0.0-2.0); Hematocrit 23.4 % (39.0-51.0); Hemoglobin 7.6 gm/dL (13.0-17.0); Lymph # (Auto) 0.9 th/mm3 (1.0-4.8); Lymph % (Auto) 6.3 % (9.0-44.0); Mean Corpuscular HGB Conc 32.4 % (32.0-36.0); Mean Corpuscular Hemoglobin 25.9 pg (27.0-34.0); Mean Platelet Volume 9.2 fL (7.0-11.0); Mono # (Auto) 1.4 th/mm3 (0.0-0.9); Mono % (Auto) 10.3 % (0.0-8.0); Neut # (Auto) 11.5 th/mm3 (1.8-7.7); Neut % (Auto) 83.1 % (16.0-70.0); Platelet Count 148 th/mm3 (150-450); Red Blood Count 2.92 mil/mm3 (4.50-5.90); Red Cell Distribution Width 19.3 % (11.6-17.2); White Blood Count 13.9 th/mm3 (4.0-11.0)
[2017-12-13 05:40] LABS: Calcium 8.5 mg/dL (8.5-10.1); Potassium 3.6 meq/L (3.5-5.1)
[2017-12-13] MEDS: ceFAZolin 1 GM Premix Inj 1 GM/50 ML FROZ.PIGGY IV.SIG SCH ×3 (06:20→21:45)
[2017-12-13] MEDS: Loratadine 10 MG Tablet PO SCH (08:26)
[2017-12-13] MEDS: Insulin NovoLOG Aspart Correctional Sugar Inj SQ SCH ×4 (08:26→21:47)
[2017-12-13] MEDS: hydroCHLOROthiazide 25 MG Tablet PO SCH (08:27)
[2017-12-13] MEDS: Furosemide 20 MG Tablet PO SCH (08:27)
[2017-12-13] MEDS: Sodium Chloride 0.9% 2 ML Flush BID IV.FLUSH SCH ×2 (08:28→21:46)
--- NOTE | 2017-12-13 08:48 | P.PNIM ---
Subjective Interval history: Patient became agitated and confused overnight after anesthesia. Required restraint this morning. He is becoming more appropriate. No further bleeding. He complains of back pain and wants the restraints off. Physical Exam Vital signs: Vital Signs 12/12/17 10:15 12/12/17 11:11 12/12/17 16:07 Temperature 97.8 F 96.8 F L 95.7 F L Pulse Rate 85 85 90 Respiratory Rate 22 18 Blood Pressure 144/79 H 145/77 H 112/62 Pulse Oximetry 91 L 98 12/12/17 16:28 12/12/17 16:38 12/12/17 20:58 Temperature 98.2 F Pulse Rate 89 86 Respiratory Rate 20 33 H Blood Pressure 132/66 Pulse Oximetry 96 95 92 L 12/12/17 21:00 12/12/17 21:25 12/12/17 21:26 Temperature 97.4 F L Pulse Rate 91 H 100 H 107 H Respiratory Rate 37 H 43 H 38 H Blood Pressure 157/69 H 173/109 H 193/82 H Pulse Oximetry 88 L 88 L 90 L 12/12/17 21:30 12/12/17 21:45 12/12/17 22:00 Temperature Pulse Rate 91 H 92 H 91 H Respiratory Rate 29 H 25 H 30 H Blood Pressure 182/88 H 187/80 H 146/68 H Pulse Oximetry 92 L 92 L 93 L 12/12/17 22:16 12/12/17 22:31 12/12/17 22:45 Temperature Pulse Rate 97 H 101 H 100 H Respiratory Rate 44 H 37 H 44 H Blood Pressure 166/76 H 133/78 137/86 Pulse Oximetry 93 L 92 L 91 L 12/12/17 23:00 12/12/17 23:15 12/12/17 23:30 Temperature Pulse Rate 92 H 93 H 90 Respiratory Rate 41 H 31 H 37 H Blood Pressure 164/79 H 170/81 H 160/72 H Pulse Oximetry 95 94 L 95 12/12/17 23:45 12/13/17 00:00 12/13/17 00:15 Temperature 97.9 F Pulse Rate 87 88 87 Respiratory Rate 32 H 37 H 29 H Blood Pressure 124/75 128/78 137/73 Pulse Oximetry 93 L 94 L 94 L 12/13/17 00:30 12/13/17 00:45 12/13/17 01:00 Temperature Pulse Rate 86 89 87 Respiratory Rate 33 H 36 H 35 H Blood Pressure 150/86 H 135/70 170/78 H Pulse Oximetry 91 L 94 L 97 12/13/17 01:08 12/13/17 01:16 12/13/17 01:30 Temperature Pulse Rate 86 86 Respiratory Rate 33 H 35 H Blood Pressure 160/94 H 146/75 H Pulse Oximetry 95 96 95 12/13/17 01:45 12/13/17 02:00 12/13/17 02:16 Temperature Pulse Rate 84 89 91 H Respiratory Rate 28 H 40 H 35 H Blood Pressure 151/77 H 162/77 H 188/86 H Pulse Oximetry 96 93 L 95 12/13/17 02:18 12/13/17 02:31 12/13/17 02:35 Temperature Pulse Rate 90 86 88 Respiratory Rate 39 H 41 H 31 H Blood Pressure 152/67 H 169/113 H 137/70 Pulse Oximetry 96 96 96 12/13/17 03:00 12/13/17 04:00 12/13/17 08:42 Temperature 98.0 F Pulse Rate 85 89 Respiratory Rate 32 H 52 H Blood Pressure 154/74 H 118/80 Pulse Oximetry 96 96 96 Intake & Output 12/12/17 12/13/17 12/13/17 18:59 06:59 18:59 Intake Total 750 / 750 350 / 350 Output Total 400 / 400 700 / 700 Balance 350 / 350 -350 / -350 Weight 87.5 kg Intake: IV 350 / 350 350 / 350 NS Inj 250 ML @ 15 mls/hr IV. 250 / 250 250 / 250 SIG ONCE MARIA M Rx#:[id number] Ancef 1 GM Premix Inj 1 gm In 50 / 50 100 / 100 50 ml @ 150 mls/hr IV.SIG Q8H MARIA M Rx#:[id number] Ancef 2 GM Premix Inj 2 gm In 50 / 50 50 ml @ 0 mls/hr IV.SIG .STK- MED ONE Rx#:[id number] Intake (Blood Product) Amt 400 / 400 Rbc As-3 Leukoreduced Unit 400 / 400 [id number] Output: Urine 200 / 200 700 / 700 Emesis 200 / 200 Other: # Voids 3 Date of Last Bowel Movement 12/10/17 12/10/17 # Emeses 1 Narrative: GENERAL: Elderly male in no acute distress. HEENT: Bilateral nasal balloons with dried blood. Mouth is dry. Lips with old dry blood. CARDIOVASCULAR: Irregular rate and rhythm. 2/6 murmur noted. RESPIRATORY: No accessory muscle use. Clear to auscultation. Breath sounds equal bilaterally. GASTROINTESTINAL: Abdomen soft, non-tender, nondistended. Normoactive bowel sounds x4. MUSCULOSKELETAL: No obvious deformities. Extremities without clubbing, cyanosis , or edema. NEUROLOGICAL: Awake and alert. Oriented to self and place. PSYCHIATRIC: Calm. Results - Labs CBC & Chem 7: 12/13/17 03:21 12/13/17 03:21 Laboratory Results - last 24 hr 12/11/17 12/12/17 12/12/17 11:06 10:23 12:43 WBC RBC Hgb Hct MCV MCH MCHC RDW Plt Count MPV Neut % (Auto) Lymph % (Auto) Creek % (Auto) Eos % (Auto) Baso % (Auto) Neut # (Auto) Lymph # (Auto) Creek # (Auto) Eos # (Auto) Baso # (Auto) WBC Differential Differential Comment Sodium Potassium Chloride Carbon Dioxide Anion Gap BUN Creatinine Estimated GFR POC Glucose 202 H 223 H Random Glucose Calcium MTS Gel Crossmatch See Detail 12/12/17 12/12/17 12/12/17 13:57 15:25 16:45 WBC RBC Hgb 7.1 L Hct 23.0 L MCV MCH MCHC RDW Plt Count MPV Neut % (Auto) Lymph % (Auto) Creek % (Auto) Eos % (Auto) Baso % (Auto) Neut # (Auto) Lymph # (Auto) Creek # (Auto) Eos # (Auto) Baso # (Auto) WBC Differential Differential Comment Sodium Potassium Chloride Carbon Dioxide Anion Gap BUN Creatinine Estimated GFR POC Glucose 266 H Random Glucose Calcium MTS Gel Crossmatch See Detail 12/12/17 12/13/17 12/13/17 21:50 03:21 03:21 WBC 13.9 H D RBC 2.92 L Hgb 7.6 L Hct 23.4 L MCV 80.0 MCH 25.9 L MCHC 32.4 RDW 19.3 H Plt Count 148 L MPV 9.2 Neut % (Auto) 83.1 H Lymph % (Auto) 6.3 L Creek % (Auto) 10.3 H Eos % (Auto) 0.0 Baso % (Auto) 0.3 Neut # (Auto) 11.5 H Lymph # (Auto) 0.9 L Creek # (Auto) 1.4 H Eos # (Auto) 0.0 Baso # (Auto) 0.0 WBC Differential . Differential Comment Auto diff final Sodium 143 Potassium 3.6 Chloride 105 Carbon Dioxide 26.0 Anion Gap 12 BUN 38 H Creatinine 1.07 Estimated GFR 66 L POC Glucose 294 H Random Glucose 178 H Calcium 8.5 MTS Gel Crossmatch 12/13/17 07:25 WBC RBC Hgb Hct MCV MCH MCHC RDW Plt Count MPV Neut % (Auto) Lymph % (Auto) Creek % (Auto) Eos % (Auto) Baso % (Auto) Neut # (Auto) Lymph # (Auto) Creek # (Auto) Eos # (Auto) Baso # (Auto) WBC Differential Differential Comment Sodium Potassium Chloride Carbon Dioxide Anion Gap BUN Creatinine Estimated GFR POC Glucose 192 H Random Glucose Calcium MTS Gel Crossmatch - Procedures 12/12/17Angio with embolization of the Left distal IMax territory, performed by IR Dr. Schultz Assessment and Plan - Assessment (1) Epistaxis Code(s): R04.0 - Epistaxis Status: Acute (2) Anemia due to blood loss Code(s): D50.0 - Iron deficiency anemia secondary to blood loss (chronic) Status: Acute (3) Anemia, iron deficiency Code(s): D50.9 - Iron deficiency anemia, unspecified Status: Chronic - Plan 82-year-old white male with a history of chronic atrial fibrillation on home Xarelto, coronary artery disease, hypertension presented to the [facility] emergency room with spontaneous nosebleed and was transferred here for ENT evaluation Acute spontaneous epistaxis: secondary to Xarelto/aspirin use. - Appreciate IR and ENT following. Patient is status post left internal maxillary embolization by IR. Also had to have right IMAX embolization due to persistent bleeding. -holding anticoagulation for now -monitor serial H&H, chest H&H later today - Keep NPO as he may need further procedures. - IVF, NS X1L Acute on chronic iron deficiency anemia and acute blood loss anemia: due to spontaneous nosebleed. Patient reports long hx of iron deficiency. - S/P PRBC transfusion. 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 -holding aspirin due to epistaxis -continue home metoprolol Atrial fibrillation: chronic, rate controlled -stop home Xarelto for now with ongoing epistaxis and anemia -follow up with [facility] as outpatient (has [facility] in [place]) Diabetes mellitus type 2: chronic -holding patient's metformin -Monitor Accu-checks and cover with SSI DVT prophylaxisbilateral SCDs, no anticoagulation due to bleed/anemia Discharge Planning: Continue to monitor closely in the Unit today. Plan to transfer to floor vs back to [facility] when stable and cleared by ENT. (3) Anemia, iron deficiency Qualifiers: Iron deficiency anemia type: unspecified iron deficiency Qualified Code(s): D50.9 - Iron deficiency anemia, unspecified
[2017-12-13] MEDS ORDERED: Sod Chloride 0.9% Inj 1,000 ML IV.CONT SCH (09:00)
--- NOTE | 2017-12-13 10:32 | IR ---
EXAM DATE: 12/12/2017 10:35 AM EST AGE/SEX: 82 years / Male INDICATIONS: Patient presents with spontaneous nosebleed in need of embolization. CLINICAL DATA: This is the patient's initial encounter. Patient reports that signs and symptoms have been present for 3 days and indicates a pain score of 0/10. MEDICAL/SURGICAL HISTORY: Hypertension. Cardiovascular disease. Diabetes. High cholesterol, Osteoarthritis, Glaucoma CABG. Cholecystectomy. Hernia repair, Joint Replacement, Shoulder surgery COMPARISON: No prior exams available for comparison. FLUORO TIME (min): 44.4 IMAGE SERIES: 16 ACCESS SITE: Right femoral artery SEDATION TIME (min): 120 CONTRAST (cc): 110cc Visipaque (iodixanol) MEDICATION(S): 3mg midazolam (Versed) IV ; 150mcg fentanyl (Sublimaze) IV ; ; ; DEVICE(S): Left Maxillary PVA 355-500 ; ; ; ; PROCEDURE : 1. Ultrasound-guided puncture of the access site. 2. Conscious sedation with continuous EKG and Oximetry monitoring. 3. Angiography of the left carotid circulation 4. Angiography of the left internal maxillary 5. PVA embolization of the distal left internal maxillary circulation. The risks, benefits and alternatives to the procedure were explained the risk included but were not l imited to bleeding, infection, stroke and blindness and verbal and written consent was obtained. The site was prepped in sterile fashion. Full sterile technique was used, including cap, mask, sterile gloves and gown and a large sterile sheet. Hand hygiene and 2% chlorhexidine and/or betadine/alcohol prep was utilized per protocol for cutaneous antisepsis. Sterile gel and sterile probe cover were u tilized for ultrasound guidance. The skin and subcutaneous tissues were infiltrated with local anest hetic solution. With ultrasound and fluoroscopic guidance the selected artery was punctured and a vascular sheath was placed. A 0.035 angle Glidewire and 4 Tanz[place] JB2 catheter were advanced into the aortic arch. The patient has a type III arch. The left carotid circulation was selected. Angiography demonstrated the left international trade manager al and external carotid circulation to be widely patent. There was considerable difficulty with advan cement of a catheter into the left carotid circulation. Eventually, a 0.035 angle Glidewire was advan cecilia into the distal most portion of the posterior radicular artery. A single and whole glide catheter was advanced over the wire and parked in the external circulation. Multiple subselective injections of the internal maxillary artery were performed. No choroidal blush was identified. No abnormal commu nication with the intracranial circulation was identified. A renegade high flow catheter was advanced through the single and whole glide catheter. This was adva nced into the distal internal maxillary circulation and embolization with 5-700 um PVA was performed. Following embolization there was considerable pruning of the branches and significant reduction in f low within the vascular bed. The patient was allowed to remain on the table for approximately 10 minutes. The packing was deflated and inspected. There was no evidence of continued active bleeding. Due to the difficulties with the patient's anatomy the decision was made not to attempt to select the right external carotid circulati on. The patient was transferred back to the emergency department in satisfactory condition. The puncture site was closed with manual pressure and hemostasis was obtained. The patient tolerated the procedure well and there were no complications. Conscious sedation was performed with the prescribed dosages and duration as above in the presence of an independent trained radiology nurse to assist in the monitoring of the patient. EKG and oximetry remained stable throughout the procedure. CONCLUSION: 1. Successful embolization of the distal left internal maxillary vascular bed. The patient tolerated the procedure well. At the conclusion of the procedure there was no evidence of continued active ble eding. Electronically signed by: Davie Schultz MD 12/13/2017 10:30 AM EST
[2017-12-13 12:27] LABS: Hematocrit 23.3 % (39.0-51.0); Hemoglobin 7.6 gm/dL (13.0-17.0)
[2017-12-13] MEDS: Ferrous Sulfate 325 MG Tablet PO SCH ×2 (13:33→18:13)
--- NOTE | 2017-12-13 14:13 | IR ---
EXAM DATE: 12/12/2017 7:39 PM EST AGE/SEX: 82 years / Male INDICATIONS: Patient presents with recurrent nose bleed in need of cerebral angiogram with embolizat ion. CLINICAL DATA: This is the patient's subsequent encounter. Patient reports that signs and symptoms h ave been present for 1 day and indicates a pain score of 0/10. MEDICAL/SURGICAL HISTORY: Hypertension. Diabetes. Hypercholesterolemia. A-Fib, CAD, Glaucoma , Osteoarthritis CABG. Cholecystectomy. Hernia repair COMPARISON: [facility] [place], ANGIOGRAM, CEREBRAL W ARCH, 12/12/2017. . FLUORO TIME (min): 45.6 IMAGE SERIES: 11 ACCESS SITE: Right femoral artery CONTRAST (cc): 120cc Visipaque (iodixanol) Prophylactic antibiotics were administered with appropriate pre-procedure timing. Vancomycin within 2 hrs of procedure, Ancef (or alternative) within 1 hr of procedure. Anesthesia and pain control was p rovided by the Anesthesia department. DEVICE(S): Right Internal maxillary artery PVA 355-500 microns ; Right common femoral artery Angio-Seal 6F ; ; ; PROCEDURE : 1. Ultrasound-guided puncture of the access site. 2. Conscious sedation with continuous EKG and Oximetry monitoring. 3. Angiography of the right carotid circulation 4. Angiography of the right internal maxillary artery 5. PVA embolization of the right internal maxillary artery. CLINICAL HISTORY: The patient underwent PVA embolization of the left internal maxillary artery at ruiz roximately 7:30 AM. The right side was not evaluated at time secondary to a type III arch and resolut ion of the hemorrhage with embolization of the left internal maxillary artery. The patient remained s table without evidence of hemorrhage until approximately 5:00 PM. At that point, the patient had a ve ry significant episode of epistaxis requiring 2 units of blood. The patient was transferred to the it. The risks, benefits and alternatives to the procedure were explained and verbal and written consent w as obtained. The site was prepped in sterile fashion. Full sterile technique was used, including ca p, mask, sterile gloves and gown and a large sterile sheet. Hand hygiene and 2% chlorhexidine and/or betadine/alcohol prep was utilized per protocol for cutaneous antisepsis. Sterile gel and sterile p robe cover were utilized for ultrasound guidance. The skin and subcutaneous tissues were infiltrated with local anesthetic solution. The patient was intubated prior to the procedure. The procedure was performed under general anesthesi a. With ultrasound and fluoroscopic guidance the right common femoral artery was accessed above the prev ious puncture site. A 25 cm 5 Belarusian hemostatic sheath was placed. A 0.035 angle glide wire and DELFINO 2 catheter were advanced into the arch. Several attempts were made to select the right innominate arter y however due to the anatomic configuration this was unsuccessful. The innominate circulation was jesusita ntually selected with a Angel 2 catheter. After several attempts, a 0.035 angle Glidewire was manip ulated into the external carotid circulation. The Angel 2 catheter was exchanged for a single glide catheter. Multiple angiographic runs through the glide catheter were performed. Results: The internal maxillary artery was widely patent. No active bleeding was identified originati ng from the internal maxillary circulation. There was no evidence of choroidal blush/patent ophthalmi c artery. The patient was heparinized with 4000 units of heparin. The glide catheter and Glidewire were eventually manipulated into the distal most aspect of the poste rior radicular artery. The Glidewire and glide catheter were exchanged for a Magic torque wire. After several attempts, a neuron max sheath was eventually advanced over the wire and positioned at the ba se of the external carotid circulation. A microcatheter Prowler select Glidewire were manipulated through the internal maxillary circulation and up to the base of the nasopharynx. The internal maxillary circulation supplying the posterior matthew opharynx was embolized to near occlusion with 5-700 um PVA. Immediately following the procedure both nasal balloons were deflated. The patient was allowed to rem ain on the table for approximately 10 to 15 minutes while the posterior pharynx and nasal cavity was evaluated. There was no evidence of active hemorrhage identified. Completion angiogram of the internal carotid circulation was performed postprocedure. There is no john dence of embolic disease. The heparin was reversed with 25 mg of protamine. The puncture site was closed with an Angio-Seal closure device. The patient tolerated the procedure w ell and was neurologically intact. CONCLUSION: 1. Successful embolization of the vascular bed supplying the posterior nasopharynx. The patient tole rated the procedure well. At the conclusion of the procedure there was no evidence of active bleeding . Electronically signed by: Davie Schultz MD 12/13/2017 2:12 PM EST
--- NOTE | 2017-12-13 17:04 | P.RAD ---
Radiology Note Patient is status post day 1 of a left internal maxillary and right IMAX embolization due to persistent bleeding. The site and oropharynx looks good without any obvious evidence of active bleeding. HnH and neurological status remain unchanged/unremarkable without any acute changes. The medical team is currently in the process of developing a discharge/transfer plan back to the [facility] or [facility] once he's cleared by ENT. No further concerns or complaints to address at this time.
[2017-12-13] MEDS: Finasteride 5 MG Tablet PO SCH (21:46)
--- NOTE | 2017-12-13 22:09 | MB ---
cc: Bandar Cartagena MD DATE: 12/13/2017 SUBJECTIVE: The patient is doing well this evening 1 day after left internal maxillary and right internal maxillary embolization due to persistent bleeding. As per the clinical notes, there appears to be no obvious evidence of active bleeding. The patient's H and H are 7.6 and 23.3 today. The patient is beginning to stabilize. Because of the patient's history of blood thinners and a complicated history of his stay needing numerous measures to control the nosebleeds, I recommend the nasal packs stay in place for another 48 hours. These will be able to be removed by the home team in 48 hours if there is no further bleeding. As the patient's hemoglobin and hematocrit are only 7.6 at 23.3, ideally these would be 10 and 30 prior to discharge just to have the patient have more of reserve in case he was to bleed again in the future. Final decision of this would be left to the home team, but that is my suggestion. I am signing off for now, but available for further consult. Of course recommend the patient maintain IV antibiotics until the nasal packs are removed. Bandar Cartagena MD P[facility]/em , 09:34 PM , 09:40 PM
[2017-12-14] MEDS: ceFAZolin 1 GM Premix Inj 1 GM/50 ML FROZ.PIGGY IV.SIG SCH (05:27)
[2017-12-14 07:08] LABS: Hematocrit 24.6 % (39.0-51.0); Hemoglobin 8.1 gm/dL (13.0-17.0); Mean Corpuscular HGB Conc 32.7 % (32.0-36.0); Mean Corpuscular Hemoglobin 26.1 pg (27.0-34.0); Mean Corpuscular Volume 79.8 fL (80.0-100.0); Mean Platelet Volume 8.9 fL (7.0-11.0); Platelet Count 168 th/mm3 (150-450); Red Blood Count 3.08 mil/mm3 (4.50-5.90); Red Cell Distribution Width 19.4 % (11.6-17.2); White Blood Count 10.7 th/mm3 (4.0-11.0)
[2017-12-14 07:33] LABS: Calcium 8.8 mg/dL (8.5-10.1); Carbon Dioxide 27.7 meq/L (21.0-32.0); Potassium 3.2 meq/L (3.5-5.1)
[2017-12-14] MEDS: Loratadine 10 MG Tablet PO SCH (08:20)
[2017-12-14] MEDS: hydroCHLOROthiazide 25 MG Tablet PO SCH (08:21)
[2017-12-14] MEDS: Sodium Chloride 0.9% 2 ML Flush BID IV.FLUSH SCH ×2 (08:25→21:43)
[2017-12-14] MEDS: Insulin NovoLOG Aspart Correctional Sugar Inj SQ SCH ×4 (08:53→21:46)
[2017-12-14] MEDS: Furosemide 20 MG Tablet PO SCH (10:02)
[2017-12-14] MEDS: Ferrous Sulfate 325 MG Tablet PO SCH ×2 (11:43→16:11)
--- NOTE | 2017-12-14 13:02 | P.PN ---
Subjective Interval history: Follow-up epistaxis status post embolization/encephalopathy December 14, 2017-patient seen and examined, currently with four-point restraints , oriented to self but confused. H&H stable. Physical Exam Vital signs: Vital Signs 12/13/17 15:00 12/13/17 16:00 12/13/17 17:00 Temperature 98.5 F Pulse Rate 85 96 H 91 H Respiratory Rate 29 H 38 H 27 H Blood Pressure 158/78 H Pulse Oximetry 97 93 L 91 L 12/13/17 17:01 12/13/17 18:00 12/13/17 19:00 Temperature Pulse Rate 93 H 95 H 88 Respiratory Rate 27 H 33 H 22 Blood Pressure 171/88 H 167/84 H 156/75 H Pulse Oximetry 96 12/13/17 20:00 12/13/17 20:01 12/13/17 21:00 Temperature 98.2 F Pulse Rate 87 86 103 H Respiratory Rate 16 16 34 H Blood Pressure 148/73 H 148/73 H 136/83 Pulse Oximetry 95 12/13/17 22:00 12/13/17 23:00 12/13/17 23:01 Temperature Pulse Rate 87 83 83 Respiratory Rate 19 19 17 Blood Pressure 136/79 150/75 H Pulse Oximetry 92 L 100 100 12/14/17 00:00 12/14/17 01:00 12/14/17 02:00 Temperature 98.0 F Pulse Rate 97 H 98 H 90 Respiratory Rate 21 20 20 Blood Pressure 163/79 H 158/88 H Pulse Oximetry 100 96 100 12/14/17 02:01 12/14/17 02:03 12/14/17 03:00 Temperature Pulse Rate 92 H 93 H 96 H Respiratory Rate 25 H 19 27 H Blood Pressure 207/145 H 168/75 H Pulse Oximetry 99 99 100 12/14/17 03:01 12/14/17 04:00 12/14/17 05:00 Temperature 97.8 F Pulse Rate 84 90 93 H Respiratory Rate 33 H 20 14 Blood Pressure 148/82 H 164/83 H 171/90 H Pulse Oximetry 93 L 83 L 100 12/14/17 06:00 12/14/17 06:16 12/14/17 07:00 Temperature Pulse Rate 87 100 H 89 Respiratory Rate 23 17 17 Blood Pressure 184/100 H 159/76 H 158/106 H Pulse Oximetry 100 99 99 12/14/17 07:06 12/14/17 08:00 12/14/17 09:00 Temperature 98.0 F Pulse Rate 92 H 92 H 95 H Respiratory Rate 18 19 17 Blood Pressure 157/85 H 140/95 H 149/93 H Pulse Oximetry 98 99 93 L 12/14/17 10:00 12/14/17 11:00 12/14/17 12:00 Temperature 99.1 F Pulse Rate 93 H 85 85 Respiratory Rate 18 24 19 Blood Pressure 142/77 H 130/73 146/83 H Pulse Oximetry 98 98 99 Intake & Output 12/13/17 12/14/17 12/14/17 18:59 06:59 18:59 Intake Total 50 / 50 1280 / 1280 Output Total 950 / 950 550 / 550 Balance -900 / -900 730 / 730 Weight 87.5 kg Intake: IV 50 / 50 1100 / 1100 NS Inj 1,000 ML @ 100 mls/hr IV 1000 / 1000 .CONT .Q10H MARIA M Rx#:[id number] Ancef 1 GM Premix Inj 1 gm In 50 / 50 100 / 100 50 ml @ 150 mls/hr IV.SIG Q8H MARIA M Rx#:[id number] Oral 180 / 180 Output: Urine 950 / 950 550 / 550 Other: # Incontinent Voids 2 Date of Last Bowel Movement 12/10/17 12/10/17 12/10/17 # Bowel Movements 0 Narrative: GENERAL: Elderly male with four-point restraints in place HEENT: right nasal balloon with dried blood. Mouth is dry. CARDIOVASCULAR: Irregular rate and rhythm. 2/6 murmur noted. RESPIRATORY: No accessory muscle use. Clear to auscultation. Breath sounds equal bilaterally. GASTROINTESTINAL: Abdomen soft, non-tender, nondistended. Normoactive bowel sounds x4. MUSCULOSKELETAL: No obvious deformities. Extremities without clubbing, cyanosis , or edema. NEUROLOGICAL: Awake and alert. Oriented to self and place. PSYCHIATRIC: Calm. Results - Labs CBC & Chem 7: 12/14/17 06:19 12/14/17 06:19 Laboratory Results - last 24 hr 12/12/17 12/13/17 12/13/17 13:57 13:20 17:02 WBC RBC Hgb Hct MCV MCH MCHC RDW Plt Count MPV Sodium Potassium Chloride Carbon Dioxide Anion Gap BUN Creatinine Estimated GFR POC Glucose 208 H 203 H Random Glucose Calcium MTS Gel Crossmatch See Detail 12/13/17 12/14/17 12/14/17 21:40 06:19 06:19 WBC 10.7 RBC 3.08 L Hgb 8.1 L Hct 24.6 L MCV 79.8 L MCH 26.1 L MCHC 32.7 RDW 19.4 H Plt Count 168 MPV 8.9 Sodium 145 Potassium 3.2 L Chloride 109 H Carbon Dioxide 27.7 Anion Gap 8 BUN 29 H Creatinine 0.87 Estimated GFR 84 L POC Glucose 116 H Random Glucose 85 Calcium 8.8 MTS Gel Crossmatch 12/14/17 12/14/17 08:34 11:25 WBC RBC Hgb Hct MCV MCH MCHC RDW Plt Count MPV Sodium Potassium Chloride Carbon Dioxide Anion Gap BUN Creatinine Estimated GFR POC Glucose 97 160 H Random Glucose Calcium MTS Gel Crossmatch - Imaging Impressions Cerebral Angiography 12/12/17 00:00 CONCLUSION: 1. Successful embolization of the vascular bed supplying the posterior nasopharynx. The patient tolerated the procedure well. At the conclusion of the procedure there was no evidence of active bleeding. - Procedures 12/12/17Angio with embolization of the Left distal IMax territory, performed by IR Dr. Schultz Assessment and Plan - Assessment (1) Epistaxis Code(s): R04.0 - Epistaxis Status: Acute (2) Anemia due to blood loss Code(s): D50.0 - Iron deficiency anemia secondary to blood loss (chronic) Status: Acute (3) Anemia, iron deficiency Code(s): D50.9 - Iron deficiency anemia, unspecified Status: Chronic - Plan 82-year-old man with Acute spontaneous epistaxis: secondary to Xarelto/aspirin use. - Appreciate IR and ENT following. -Patient is status post left internal maxillary embolization as well as right IMAX embolization due to persistent bleeding. -Continue to monitor H&H Acute on chronic iron deficiency anemia and acute blood loss anemia: due to spontaneous nosebleed. Patient reports long hx of iron deficiency. - S/P PRBC transfusion. 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 -Continue to hold aspirin due to epistaxis -continue home metoprolol Atrial fibrillation: chronic, rate controlled -stop home Xarelto for now with ongoing epistaxis and anemia -follow up with senior speech pathologist as outpatient (has senior speech pathologist in [place]) Diabetes mellitus type 2: chronic -holding patient's metformin -Monitor Accu-checks and cover with SSI DVT prophylaxisbilateral SCDs, no anticoagulation due to bleed/anemia Transfer to [facility] (3) Anemia, iron deficiency Qualifiers: Iron deficiency anemia type: unspecified iron deficiency Qualified Code(s): D50.9 - Iron deficiency anemia, unspecified
[2017-12-14] MEDS: Finasteride 5 MG Tablet PO SCH (21:42)
[2017-12-15 05:38] LABS: Baso # (Auto) 0.1 th/mm3 (0.0-0.2); Baso % (Auto) 0.6 % (0.0-2.0); Eos # (Auto) 0.1 th/mm3 (0.0-0.4); Hematocrit 23.6 % (39.0-51.0); Hemoglobin 7.7 gm/dL (13.0-17.0); Lymph # (Auto) 0.7 th/mm3 (1.0-4.8); Lymph % (Auto) 8.5 % (9.0-44.0); Mean Corpuscular HGB Conc 32.5 % (32.0-36.0); Mean Corpuscular Hemoglobin 26.1 pg (27.0-34.0); Mean Corpuscular Volume 80.2 fL (80.0-100.0); Mean Platelet Volume 8.8 fL (7.0-11.0); Mono % (Auto) 11.7 % (0.0-8.0); Neut # (Auto) 6.8 th/mm3 (1.8-7.7); Neut % (Auto) 78.2 % (16.0-70.0); Platelet Count 162 th/mm3 (150-450); Red Blood Count 2.94 mil/mm3 (4.50-5.90); White Blood Count 8.7 th/mm3 (4.0-11.0)
--- NOTE | 2017-12-15 09:22 | P.PN ---
Subjective Interval history: Follow-up epistaxis status post embolization/encephalopathy December 14, 2017-patient seen and examined, currently with four-point restraints , oriented to self but confused. H&H stable. December 15, 2017-patient seen and examined, still confused, H&H dropping Physical Exam Vital signs: Vital Signs 12/14/17 10:00 12/14/17 11:00 12/14/17 12:00 Temperature 99.1 F Pulse Rate 93 H 85 85 Respiratory Rate 18 24 19 Blood Pressure 142/77 H 130/73 146/83 H Pulse Oximetry 98 98 99 12/14/17 13:00 12/14/17 14:00 12/14/17 15:00 Temperature Pulse Rate 80 89 90 Respiratory Rate 20 28 H 28 H Blood Pressure 155/81 H 169/94 H 183/103 H Pulse Oximetry 94 L 91 L 93 L 12/14/17 15:03 12/14/17 16:00 12/14/17 16:03 Temperature 99.6 F Pulse Rate 90 83 80 Respiratory Rate 23 20 18 Blood Pressure 149/73 H 158/84 H Pulse Oximetry 98 84 L 81 L 12/14/17 17:00 12/14/17 18:00 12/14/17 20:00 Temperature 98.1 F Pulse Rate 89 83 84 Respiratory Rate 26 H 20 18 Blood Pressure 176/84 H 169/92 H 161/94 H Pulse Oximetry 99 97 94 L 12/14/17 20:07 12/15/17 00:00 12/15/17 04:00 Temperature 98.3 F 98.2 F Pulse Rate 81 81 Respiratory Rate 17 20 Blood Pressure 162/93 H 134/91 H Pulse Oximetry 100 98 94 L 12/15/17 08:16 Temperature Pulse Rate Respiratory Rate Blood Pressure Pulse Oximetry 100 Intake & Output 12/14/17 12/15/17 12/15/17 18:59 06:59 18:59 Output Total 700 / 700 Balance -700 / -700 Weight 85 kg Output: Urine 700 / 700 Other: # Incontinent Voids 5 Date of Last Bowel Movement 12/10/17 12/10/17 # Bowel Movements 0 Narrative: GENERAL: Elderly male with four-point restraints in place HEENT: right nasal balloon with dried blood. Mouth is dry. CARDIOVASCULAR: Irregular rate and rhythm. 2/6 murmur noted. RESPIRATORY: No accessory muscle use. Clear to auscultation. Breath sounds equal bilaterally. GASTROINTESTINAL: Abdomen soft, non-tender, nondistended. Normoactive bowel sounds x4. MUSCULOSKELETAL: No obvious deformities. Extremities without clubbing, cyanosis , or edema. NEUROLOGICAL: Awake and alert. Oriented to self and place. Results - Labs CBC & Chem 7: 12/15/17 04:39 12/14/17 06:19 Laboratory Results - last 24 hr 12/12/17 12/14/17 12/14/17 13:57 11:25 15:48 WBC RBC Hgb Hct MCV MCH MCHC RDW Plt Count MPV Neut % (Auto) Lymph % (Auto) [place] % (Auto) Eos % (Auto) Baso % (Auto) Neut # (Auto) Lymph # (Auto) [place] # (Auto) Eos # (Auto) Baso # (Auto) WBC Differential Differential Comment POC Glucose 160 H 238 H MTS Gel Crossmatch See Detail 12/14/17 12/15/17 12/15/17 21:46 04:39 08:56 WBC 8.7 RBC 2.94 L Hgb 7.7 L Hct 23.6 L MCV 80.2 MCH 26.1 L MCHC 32.5 RDW 20.0 H Plt Count 162 MPV 8.8 Neut % (Auto) 78.2 H Lymph % (Auto) 8.5 L [place] % (Auto) 11.7 H Eos % (Auto) 1.0 Baso % (Auto) 0.6 Neut # (Auto) 6.8 Lymph # (Auto) 0.7 L [place] # (Auto) 1.0 H Eos # (Auto) 0.1 Baso # (Auto) 0.1 WBC Differential . Differential Comment Auto diff final POC Glucose 241 H 181 H MTS Gel Crossmatch - Procedures 12/12/17Angio with embolization of the Left distal IMax territory, performed by IR Dr. Schultz Assessment and Plan - Assessment (1) Epistaxis Code(s): R04.0 - Epistaxis Status: Acute (2) Anemia due to blood loss Code(s): D50.0 - Iron deficiency anemia secondary to blood loss (chronic) Status: Acute (3) Anemia, iron deficiency Code(s): D50.9 - Iron deficiency anemia, unspecified Status: Chronic - Plan 82-year-old man with Acute spontaneous epistaxis: secondary to Xarelto/aspirin use. - Appreciate IR and ENT following. -Patient is status post left internal maxillary embolization as well as right IMAX embolization due to persistent bleeding. -Continue to monitor H&H Acute on chronic iron deficiency anemia and acute blood loss anemia: due to spontaneous nosebleed. Patient reports long hx of iron deficiency. - S/P PRBC transfusion. 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 -Continue to hold aspirin due to epistaxis -continue home metoprolol Atrial fibrillation: chronic, rate controlled -stop home Xarelto for now with ongoing epistaxis and anemia -follow up with trouble operator as outpatient (has trouble operator in [place]) Diabetes mellitus type 2: chronic -holding patient's metformin -Monitor Accu-checks and cover with SSI DVT prophylaxisbilateral SCDs, no anticoagulation due to bleed/anemia (3) Anemia, iron deficiency Qualifiers: Iron deficiency anemia type: unspecified iron deficiency Qualified Code(s): D50.9 - Iron deficiency anemia, unspecified
[2017-12-15] MEDS: Loratadine 10 MG Tablet PO SCH (09:59)
[2017-12-15] MEDS: Furosemide 20 MG Tablet PO SCH (09:59)
[2017-12-15] MEDS: Insulin NovoLOG Aspart Correctional Sugar Inj SQ SCH ×4 (10:00→21:37)
[2017-12-15] MEDS: Sodium Chloride 0.9% 2 ML Flush BID IV.FLUSH SCH ×2 (10:00→21:37)
[2017-12-15] MEDS: hydroCHLOROthiazide 25 MG Tablet PO SCH (10:01)
[2017-12-15] MEDS: Ferrous Sulfate 325 MG Tablet PO SCH ×2 (12:58→17:25)
[2017-12-15] MEDS: Finasteride 5 MG Tablet PO SCH (21:37)
[2017-12-16 04:13] LABS: Baso # (Auto) 0.1 th/mm3 (0.0-0.2); Baso % (Auto) 1.4 % (0.0-2.0); Eos # (Auto) 0.2 th/mm3 (0.0-0.4); Eos % (Auto) 2.4 % (0.0-4.0); Hematocrit 25.4 % (39.0-51.0); Hemoglobin 8.2 gm/dL (13.0-17.0); Lymph # (Auto) 0.7 th/mm3 (1.0-4.8); Lymph % (Auto) 10.9 % (9.0-44.0); Mean Corpuscular HGB Conc 32.3 % (32.0-36.0); Mean Corpuscular Hemoglobin 25.9 pg (27.0-34.0); Mean Corpuscular Volume 80.3 fL (80.0-100.0); Mean Platelet Volume 8.9 fL (7.0-11.0); Mono # (Auto) 0.7 th/mm3 (0.0-0.9); Mono % (Auto) 10.5 % (0.0-8.0); Neut # (Auto) 4.8 th/mm3 (1.8-7.7); Neut % (Auto) 74.8 % (16.0-70.0); Platelet Count 175 th/mm3 (150-450); Red Blood Count 3.17 mil/mm3 (4.50-5.90); White Blood Count 6.4 th/mm3 (4.0-11.0)
--- NOTE | 2017-12-16 07:05 | P.PN ---
Subjective Interval history: Follow-up epistaxis status post embolization/encephalopathy December 14, 2017-patient seen and examined, currently with four-point restraints , oriented to self but confused. H&H Stable. December 15, 2017-patient seen and examined, still confused, H&H dropping December 16, 2017-patient seen and examined, remains altered. H&H stable and no report of episode of epistaxis Physical Exam Vital signs: Vital Signs 12/15/17 07:00 12/15/17 08:00 12/15/17 08:16 Temperature 98.4 F Pulse Rate 93 H 88 Respiratory Rate 18 20 Blood Pressure 158/98 H 157/89 H Pulse Oximetry 100 100 100 12/15/17 09:00 12/15/17 10:00 12/15/17 11:00 Temperature Pulse Rate 87 87 89 Respiratory Rate 18 15 16 Blood Pressure 158/89 H 166/94 H Pulse Oximetry 100 100 89 L 12/15/17 11:01 12/15/17 12:00 12/15/17 12:08 Temperature 98.0 F Pulse Rate 88 83 80 Respiratory Rate 18 17 16 Blood Pressure 144/81 H 161/81 H Pulse Oximetry 96 99 99 12/15/17 13:00 12/15/17 14:00 12/15/17 15:00 Temperature Pulse Rate 84 84 98 H Respiratory Rate 22 26 H 18 Blood Pressure 155/82 H 153/95 H 160/113 H Pulse Oximetry 100 84 L 80 L 12/15/17 16:00 12/15/17 16:04 12/15/17 17:00 Temperature 97.7 F Pulse Rate 96 H 96 H 92 H Respiratory Rate 20 20 14 Blood Pressure 152/101 H 126/84 151/68 H Pulse Oximetry 90 L 97 94 L 12/15/17 18:00 12/15/17 19:00 12/15/17 20:00 Temperature 99.2 F Pulse Rate 97 H 101 H 99 H Respiratory Rate 17 26 H 17 Blood Pressure 150/79 H 162/72 H 145/86 H Pulse Oximetry 92 L 92 L 90 L 12/16/17 00:00 12/16/17 04:00 Temperature 99.0 F 99.1 F Pulse Rate 94 H 97 H Respiratory Rate 16 18 Blood Pressure 154/94 H 149/88 H Pulse Oximetry 100 100 Intake & Output 12/15/17 12/15/17 12/16/17 06:59 18:59 06:59 Intake Total 480 / 480 50 / 50 Output Total 700 / 700 1475 / 1475 550 / 550 Balance -700 / -700 -995 / -995 -500 / -500 Weight 85 kg 83 kg Intake: Oral 480 / 480 50 / 50 Output: Urine 700 / 700 1475 / 1475 550 / 550 Other: Date of Last Bowel Movement 12/10/17 12/10/17 12/10/17 # Bowel Movements 0 0 0 Narrative: GENERAL: Elderly male with four-point restraints in place HEENT: right nasal balloon with dried blood. Mouth is dry. CARDIOVASCULAR: Irregular rate and rhythm. 2/6 murmur noted. RESPIRATORY: No accessory muscle use. Clear to auscultation. Breath sounds equal bilaterally. GASTROINTESTINAL: Abdomen soft, non-tender, nondistended. Normoactive bowel sounds x4. MUSCULOSKELETAL: No obvious deformities. Extremities without clubbing, cyanosis , or edema. NEUROLOGICAL: Awake and alert. Oriented to self and place. Results - Labs CBC & Chem 7: 12/16/17 03:33 12/14/17 06:19 Laboratory Results - last 24 hr 12/15/17 12/15/17 12/15/17 08:56 12:56 17:31 WBC RBC Hgb Hct MCV MCH MCHC RDW Plt Count MPV Neut % (Auto) Lymph % (Auto) [place] % (Auto) Eos % (Auto) Baso % (Auto) Neut # (Auto) Lymph # (Auto) [place] # (Auto) Eos # (Auto) Baso # (Auto) WBC Differential Differential Comment POC Glucose 181 H 274 H 130 H 12/15/17 12/16/17 21:36 03:33 WBC 6.4 RBC 3.17 L Hgb 8.2 L Hct 25.4 L MCV 80.3 MCH 25.9 L MCHC 32.3 RDW 21.0 H Plt Count 175 MPV 8.9 Neut % (Auto) 74.8 H Lymph % (Auto) 10.9 [place] % (Auto) 10.5 H Eos % (Auto) 2.4 Baso % (Auto) 1.4 Neut # (Auto) 4.8 Lymph # (Auto) 0.7 L [place] # (Auto) 0.7 Eos # (Auto) 0.2 Baso # (Auto) 0.1 WBC Differential . Differential Comment Auto diff final POC Glucose 143 H - Procedures 12/12/17Angio with embolization of the Left distal IMax territory, performed by IR Dr. Schultz Assessment and Plan - Assessment (1) Epistaxis Code(s): R04.0 - Epistaxis Status: Acute (2) Anemia due to blood loss Code(s): D50.0 - Iron deficiency anemia secondary to blood loss (chronic) Status: Acute (3) Anemia, iron deficiency Code(s): D50.9 - Iron deficiency anemia, unspecified Status: Chronic - Plan 82-year-old man with Acute spontaneous epistaxis: secondary to Xarelto/aspirin use. - Appreciate IR and ENT input appreciated. -Patient is status post left internal maxillary embolization as well as right IMAX embolization due to persistent bleeding. -Continue to monitor H&H Acute on chronic iron deficiency anemia and acute blood loss anemia: due to spontaneous nosebleed. Patient reports long hx of iron deficiency. - S/P PRBC transfusion. 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 -Continue to hold aspirin due to epistaxis -continue home metoprolol Atrial fibrillation: chronic, rate controlled -stop home Xarelto for now with ongoing epistaxis and anemia -follow up with hot billet shear operator as outpatient (has hot billet shear operator in [place]) Diabetes mellitus type 2: chronic -holding patient's metformin -Monitor Accu-checks and cover with SSI Metabolic encephalopathy Treat as in above DVT prophylaxisbilateral SCDs, no anticoagulation due to bleed/anemia Transfer to [facility] (3) Anemia, iron deficiency Qualifiers: Iron deficiency anemia type: unspecified iron deficiency Qualified Code(s): D50.9 - Iron deficiency anemia, unspecified
[2017-12-16] MEDS: Insulin NovoLOG Aspart Correctional Sugar Inj SQ SCH ×4 (07:51→23:19)
[2017-12-16] MEDS: Docusate Sodium 100 MG Capsule PO PRN (07:53)
[2017-12-16] MEDS: Loratadine 10 MG Tablet PO SCH (08:18)
[2017-12-16] MEDS: Furosemide 20 MG Tablet PO SCH (08:18)
[2017-12-16] MEDS: hydroCHLOROthiazide 25 MG Tablet PO SCH (08:18)
[2017-12-16] MEDS: Sodium Chloride 0.9% 2 ML Flush BID IV.FLUSH SCH ×2 (08:18→23:19)
[2017-12-16] MEDS: Ferrous Sulfate 325 MG Tablet PO SCH ×2 (13:17→18:39)
[2017-12-16] MEDS ORDERED: ALPRAZolam 0.5 MG Tablet PO ONE (15:30)
[2017-12-16 18:29] LABS: Calcium 9.5 mg/dL (8.5-10.1); Carbon Dioxide 28.8 meq/L (21.0-32.0); Magnesium 2.1 mg/dL (1.5-2.5); Phosphorus 2.2 mg/dL (2.5-4.9); Potassium 3.3 meq/L (3.5-5.1)
[2017-12-16 21:47] LABS: ABG Base Excess 5.4 mmol/L (-2-2); ABG PCO2 36 mmHg (38-42); ABG PO2 57 mmHG (61-120)
[2017-12-16] MEDS ORDERED: Potassium Phosphate Inj 30 MMOL in Sodium Chlor 0.9% Inj 250 ML IV.SIG ONE (22:00)
--- NOTE | 2017-12-16 22:56 | CT ---
EXAM DATE: 12/16/2017 10:47 PM EST AGE/SEX: 82 years / Male INDICATIONS: Altered mental status. CLINICAL DATA: This is the patient's initial encounter. Patient reports that signs and symptoms have been present for 4 - 6 days and indicates a pain score of 0/10. MEDICAL/SURGICAL HISTORY: Cardiovascular disease. Diabetes. Hypertension. CABG. Cholecystectomy. RADIATION DOSE: 33.37 CTDI (mGy) COMPARISON: No prior exams available for comparison. TECHNIQUE: CT of the head without contrast. Using automated exposure control and adjustment of the mA and/or kV according to patient size, radiation dose was kept as low as reasonably achievable to ob tain optimal diagnostic quality images. DICOM format image data is available electronically for revi ew and comparison. FINDINGS: No intracranial hemorrhage or hematoma. There is faintly decreased attenuation in the left parietal a nd occipital lobes and also the left cerebellum. There is otherwise chronic low-attenuation in the pe riventricular white matter. No mass effect or midline shift. CONCLUSION: 1. 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 2. Chronic white matter changes. 3. No bleed. . Electronically signed by: Giuliano Collier MD 12/16/2017 10:55 PM EST
[2017-12-16] MEDS: Finasteride 5 MG Tablet PO SCH (23:19)
[2017-12-17 05:08] LABS: Chol/HDL Ratio 2.41 Ratio; HDL Cholesterol 26.5 mg/dL (40.0-60.0)
[2017-12-17] MEDS: hydroCHLOROthiazide 25 MG Tablet PO SCH (09:15)
[2017-12-17] MEDS: Loratadine 10 MG Tablet PO SCH (09:15)
[2017-12-17] MEDS: Sodium Chloride 0.9% 2 ML Flush BID IV.FLUSH SCH ×2 (09:16→22:55)
[2017-12-17] MEDS: Aspirin 325 MG Tablet PO SCH (09:16)
[2017-12-17] MEDS: Furosemide 20 MG Tablet PO SCH (09:16)
[2017-12-17] MEDS: Insulin NovoLOG Aspart Correctional Sugar Inj SQ SCH ×4 (10:36→22:55)
--- NOTE | 2017-12-17 10:44 | P.PN ---
Subjective Interval history: Follow-up epistaxis status post embolization/encephalopathy December 17, 2017-patient seen and examined, oriented to self, follows commands however. Head CT ordered last night revealed subacute infarct; neurology consultation pending Physical Exam Vital signs: Vital Signs 12/16/17 11:00 12/16/17 12:00 12/16/17 13:00 Temperature Pulse Rate 97 H 103 H 101 H Respiratory Rate 14 18 32 H Blood Pressure 134/78 129/65 142/103 H Pulse Oximetry 94 L 95 95 12/16/17 13:12 12/16/17 14:00 12/16/17 14:01 Temperature Pulse Rate 101 H 102 H 104 H Respiratory Rate 19 32 H 32 H Blood Pressure 165/91 H 114/68 Pulse Oximetry 95 94 L 95 12/16/17 15:00 12/16/17 16:00 12/16/17 16:01 Temperature Pulse Rate 95 H 91 H 92 H Respiratory Rate 31 H 33 H 22 Blood Pressure 116/80 145/91 H Pulse Oximetry 92 L 75 L 79 L 12/16/17 20:00 12/17/17 00:00 12/17/17 04:00 Temperature 98.8 F 98.4 F 98.5 F Pulse Rate 114 H 99 H 94 H Respiratory Rate 20 21 18 Blood Pressure 115/86 161/98 H 155/92 H Pulse Oximetry 93 L 100 100 Intake & Output 12/16/17 12/17/17 12/17/17 18:59 06:59 18:59 Intake Total 400 / 400 0 / 0 Output Total 450 / 450 450 / 450 Balance -50 / -50 -450 / -450 Weight 82 kg Intake: Oral 400 / 400 0 / 0 Output: Urine 450 / 450 Urine Amount (Catheter) 450 / 450 Condom 450 / 450 Other: # Voids 3 Date of Last Bowel Movement 12/10/17 12/16/17 # Bowel Movements 0 1 Narrative: GENERAL: Elderly male with four-point restraints in place HEENT: right nasal balloon with dried blood. Mouth is dry. CARDIOVASCULAR: Irregular rate and rhythm. 2/6 murmur noted. RESPIRATORY: No accessory muscle use. Clear to auscultation. Breath sounds equal bilaterally. GASTROINTESTINAL: Abdomen soft, non-tender, nondistended. Normoactive bowel sounds x4. MUSCULOSKELETAL: No obvious deformities. Extremities without clubbing, cyanosis , or edema. NEUROLOGICAL: Awake and alert. Oriented to self and place. - Urinary Catheter Management Condom Cath placed during this visit: no Results - Labs CBC & Chem 7: 12/16/17 03:33 12/16/17 16:44 Laboratory Results - last 24 hr 12/16/17 12/16/17 12/16/17 12:25 16:44 16:50 Puncture Site Patient Temperature O2 Saturation ABG pH ABG pCO2 ABG pO2 ABG HCO3 ABG O2 Content ABG Base Excess ABG Methemoglobin Barrera Test Hemoglobin Carboxyhemoglobin Inspired O2 Critical Value Sodium 141 Potassium 3.3 L Chloride 101 Carbon Dioxide 28.8 Anion Gap 11 BUN 21 H Creatinine 1.01 Estimated GFR 71 L POC Glucose 303 H 213 H Random Glucose 183 H Calcium 9.5 Phosphorus 2.2 L Magnesium 2.1 Triglycerides Cholesterol LDL Cholesterol, Calc HDL Cholesterol Cholesterol/HDL Ratio 12/16/17 12/16/17 12/17/17 21:38 23:17 04:00 Puncture Site Left radial Patient Temperature 98.6 O2 Saturation 89 L* ABG pH 7.51 H* ABG pCO2 36 L ABG pO2 57 L* ABG HCO3 29 H ABG O2 Content 11.2 L ABG Base Excess 5.4 H ABG Methemoglobin 1.1 Barrera Test Present Hemoglobin 8.9 L Carboxyhemoglobin 1.9 Inspired O2 21 Critical Value Yes Sodium Potassium Chloride Carbon Dioxide Anion Gap BUN Creatinine Estimated GFR POC Glucose 171 H Random Glucose Calcium Phosphorus Magnesium Triglycerides 63 Cholesterol 64 L LDL Cholesterol, Calc 25 HDL Cholesterol 26.5 L Cholesterol/HDL Ratio 2.41 12/17/17 09:13 Puncture Site Patient Temperature O2 Saturation ABG pH ABG pCO2 ABG pO2 ABG HCO3 ABG O2 Content ABG Base Excess ABG Methemoglobin Barrera Test Hemoglobin Carboxyhemoglobin Inspired O2 Critical Value Sodium Potassium Chloride Carbon Dioxide Anion Gap BUN Creatinine Estimated GFR POC Glucose 177 H Random Glucose Calcium Phosphorus Magnesium Triglycerides Cholesterol LDL Cholesterol, Calc HDL Cholesterol Cholesterol/HDL Ratio - Imaging Impressions Head CT 12/16/17 21:22 CONCLUSION: 1. 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 2. Chronic white matter changes. 3. No bleed. . - Procedures 12/12/17Angio with embolization of the Left distal IMax territory, performed by ALLEN Schultz Assessment and Plan - Assessment (1) Epistaxis Code(s): R04.0 - Epistaxis Status: Acute (2) Anemia due to blood loss Code(s): D50.0 - Iron deficiency anemia secondary to blood loss (chronic) Status: Acute (3) Anemia, iron deficiency Code(s): D50.9 - Iron deficiency anemia, unspecified Status: Chronic - Plan 82-year-old man with Acute spontaneous epistaxis: secondary to Xarelto/aspirin use. - Appreciate IR and ENT input appreciated. -Patient is status post left internal maxillary embolization as well as right IMAX embolization due to persistent bleeding. -Continue to monitor H&H Acute on chronic iron deficiency anemia and acute blood loss anemia: due to spontaneous nosebleed. Patient reports long hx of iron deficiency. - S/P PRBC transfusion. 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
[2017-12-17] MEDS: Ferrous Sulfate 325 MG Tablet PO SCH ×2 (13:30→18:12)
[2017-12-17 21:49] LABS: Hemoglobin A1c 6.7 % (4.3-6.0)
--- NOTE | 2017-12-17 22:47 | MB ---
cc: Jesus Gonzalez MD, PhD DATE: 12/17/2017 REASON FOR CONSULTATION: Stroke. HISTORY OF PRESENT ILLNESS: Mr. Larkin is an 82-year-old man with atrial fibrillation who was previously on Xarelto, who developed severe epistaxis requiring interventional radiology for embolization of the right internal maxillary artery and left internal maxillary artery. The patient developed mental status changes and a CT of the brain was obtained and reviewed showing an area of subacute infarction in the left posterior cerebral artery territory and left cerebellar hemisphere with no hemorrhage. Because of the epistaxis, the patient's anticoagulation has been on hold. MEDICATIONS: Currently: 1. Tylenol. 2. Aspirin 325 mg daily. 3. Dulcolax. 4. Dextrose. 5. Colace. 6. Iron sulfate. 7. Proscar. 8. Lasix. 9. Hydrodiuril. 10. Claritin. 11. Toprol-XL. 12. Zofran p.r.n. 13. Protonix. 14. Pravachol. 15. Senokot. NEUROLOGIC EXAMINATION: VITAL SIGNS: His blood pressure is 172/105, pulse 99, respiratory rate 17, temperature 98 degrees. HIGHER CORTICAL FUNCTION: The patient is alert and oriented x2. Speech is slightly dysarthric. CRANIAL NERVES: He has a right homonymous hemianopsia. Otherwise, cranial nerves intact. MOTOR: No focal deficits are identified. Reflexes are symmetrical. 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 RECOMMENDATIONS: Continue aspirin if he is able to tolerate this from the standpoint of epistaxis. He is not a candidate for anticoagulation at this time due to the severe epistaxis which caused anemia. We will evaluate him further with a carotid ultrasound as well as an echocardiogram and also a CT angiogram of the brain. Jesus Gonzalez MD, PhD SIMON/miracle , 08:58 PM , 09:08 PM
[2017-12-17] MEDS: Finasteride 5 MG Tablet PO SCH (22:56)
[2017-12-18] MEDS: Aspirin 325 MG Tablet PO SCH (09:20)
[2017-12-18] MEDS: Furosemide 20 MG Tablet PO SCH (09:21)
[2017-12-18] MEDS: Loratadine 10 MG Tablet PO SCH (09:21)
[2017-12-18] MEDS: hydroCHLOROthiazide 25 MG Tablet PO SCH (09:21)
--- NOTE | 2017-12-18 11:04 | MR ---
EXAM DATE: 12/18/2017 10:52 AM EST AGE/SEX: 82 years / Male INDICATIONS: . Decreased level of consciousness. CLINICAL DATA: This is the patient's initial encounter. Patient reports that signs and symptoms have been present for 1 day and indicates a pain score of 0/10. MEDICAL/SURGICAL HISTORY: Cardiovascular disease. Diabetes mellitus type II. Hypertension. CA BG. Coronary artery stent. Total knee replacement, right. COMPARISON: C, MRA HEAD W/O CONTRAST, 12/18/2017. . TECHNIQUE: Multiplanar, multisequence examination of the brain was performed without contrast. FINDINGS: Diffusion weighted images demonstrate acute infarcts within the bilateral cerebellar hemispheres, lef t occipital lobe, and scattered tiny foci of restricted diffusion in the left frontal and parietal re gions. There are are areas of blooming artifact in the left cerebellar hemisphere consistent with pet echial hemorrhage. There is corresponding abnormal increased FLAIR signal. There is mild atrophy and extensive white matter disease, felt to be chronic in nature. CONCLUSION: 1. Left cerebral and cerebellar as well as right cerebellar acute infarcts. 2. Atrophy and white matter disease. Electronically signed by: Danis Francois MD 12/18/2017 11:03 AM EST
--- NOTE | 2017-12-18 11:05 | MR ---
EXAM DATE: 12/18/2017 10:52 AM EST AGE/SEX: 82 years / Male INDICATIONS: . Decreased level of consciousness. CLINICAL DATA: This is the patient's initial encounter. Patient reports that signs and symptoms have been present for 1 day and indicates a pain score of 0/10. MEDICAL/SURGICAL HISTORY: Cardiovascular disease. Diabetes mellitus type II. Hypercholesterol emia. CABG. Total knee replacement, right. Coronary artery stent. COMPARISON: [facility] [place], MR HEAD W/O CONTRAST, 12/18/2017. . TECHNIQUE: 3D [id number] MRA was performed. Source images, multiplanar STS MIP, and 3D volum e MIP reconstructions were reviewed. FINDINGS: There is excellent visualization of the major intracranial arteries out to the second-order branch ve ssels. There is no evidence for aneurysm, vessel truncation or stenosis, and no evidence for vascula r malformation. CONCLUSION: 1. Negative MRA Cow ([place]) non contrast. Electronically signed by: Danis Francois MD 12/18/2017 11:04 AM EST
--- NOTE | 2017-12-18 11:17 | CT ---
EXAM DATE: 12/18/2017 11:12 AM EST AGE/SEX: 82 years / Male INDICATIONS: Subacute infarct; evaluate for embolism. CLINICAL DATA: This is the patient's initial encounter. Patient reports that signs and symptoms have been present for 1 day and indicates a pain score of Nonresponsive. MEDICAL/SURGICAL HISTORY: Cardiovascular disease. Hypertension. Diabetes. CABG. Cholecystectomy. RADIATION DOSE: 28.66 CTDI (mGy) ; Combined studies COMPARISON: [facility] [place], [place] HEAD W/O CONTRAST, 12/16/2017. . TECHNIQUE: Volumetric scanning was performed using a multi-row detector CT scanner during bolus infu evangelina of 73 ml Omnipaque 350 (iohexol) nonionic water-soluble contrast as a cumulative dose for multi ple exams. The data was post processed with a variety of visualization algorithms including full vo lume maximum intensity projection, multi-planar sliding thin slab reformation, curved planar reformat ion, and surface rendering techniques. Using automated exposure control and adjustment of the mA and /or kV according to patient size, radiation dose was kept as low as reasonably achievable to obtain o ptimal diagnostic quality images. DICOM format image data is available electronically for review and comparison. FINDINGS: There is excellent visualization of the major intracranial arteries out to the second-order branch ve ssels. There is no evidence for aneurysm, vessel truncation or stenosis, and no evidence for vascula r malformation. CONCLUSION: 1. Negative CTA Head. . Electronically signed by: Danis Francois MD 12/18/2017 11:16 AM EST
--- NOTE | 2017-12-18 11:42 | P.PN ---
Subjective Interval history: Follow-up epistaxis status post embolization/encephalopathy/Acute CVA December 17, 2017-patient seen and examined, oriented to self, follows commands however. Head CT ordered last night revealed subacute infarct; neurology consultation pending December 18, 2017-patient seen and examined, follows commands however confused. still with two-point restraint to upper extremities. Physical Exam Vital signs: Vital Signs 12/17/17 12:00 12/17/17 14:01 12/17/17 15:00 Temperature 97.9 F Pulse Rate 100 H 101 H Respiratory Rate 14 15 Blood Pressure 151/92 H 164/109 H Pulse Oximetry 95 100 12/17/17 15:17 12/17/17 16:00 12/17/17 16:13 Temperature 98.2 F Pulse Rate 100 H 99 H 99 H Respiratory Rate 22 17 14 Blood Pressure 150/99 H 172/105 H 160/102 H Pulse Oximetry 98 99 98 12/17/17 17:00 12/17/17 18:00 12/17/17 18:11 Temperature Pulse Rate 98 H 100 H 105 H Respiratory Rate 11 L 13 18 Blood Pressure 153/92 H 163/100 H 157/103 H Pulse Oximetry 100 100 96 12/17/17 18:16 12/17/17 19:00 12/17/17 19:01 Temperature Pulse Rate 103 H 104 H 105 H Respiratory Rate 14 25 H 18 Blood Pressure 164/111 H 134/92 H Pulse Oximetry 100 96 100 12/17/17 20:00 12/17/17 21:00 12/17/17 22:00 Temperature 97.8 F Pulse Rate 105 H 100 H 103 H Respiratory Rate 18 15 21 Blood Pressure 131/98 H 126/94 H 135/77 Pulse Oximetry 96 100 100 12/17/17 23:00 12/18/17 00:00 12/18/17 00:14 Temperature 97.9 F Pulse Rate 101 H 100 H 99 H Respiratory Rate 14 14 16 Blood Pressure 143/94 H 146/100 H 144/90 H Pulse Oximetry 100 100 100 12/18/17 01:00 12/18/17 02:00 12/18/17 03:00 Temperature Pulse Rate 99 H 98 H 94 H Respiratory Rate 16 16 18 Blood Pressure 153/83 H 129/76 151/96 H Pulse Oximetry 100 92 L 100 12/18/17 04:00 12/18/17 05:00 12/18/17 06:00 Temperature 98.1 F Pulse Rate 100 H 94 H 93 H Respiratory Rate 26 H 21 14 Blood Pressure 148/93 H 148/84 H 149/98 H Pulse Oximetry 99 100 100 12/18/17 07:00 12/18/17 08:00 12/18/17 08:01 Temperature 98.0 F Pulse Rate 93 H 95 H 94 H Respiratory Rate 16 16 22 Blood Pressure 148/95 H 137/92 H Pulse Oximetry 100 100 100 12/18/17 09:00 Temperature Pulse Rate 99 H Respiratory Rate 22 Blood Pressure 154/89 H Pulse Oximetry 100 Intake & Output 12/17/17 12/18/17 12/18/17 18:59 06:59 18:59 Intake Total 450 / 450 50 / 50 Output Total 1300 / 1300 750 / 750 Balance -850 / -850 -700 / -700 Weight 79.5 kg Intake: Oral 450 / 450 50 / 50 Output: Urine Amount (Catheter) 1300 / 1300 750 / 750 Condom 1300 / 1300 750 / 750 Other: # Voids 3 Date of Last Bowel Movement 12/17/17 12/17/17 12/17/17 # Incontinent Bowel Movements 1 1 Narrative: GENERAL: Elderly male with two-point restraints in place HEENT: right nasal balloon with dried blood. Mouth is dry. CARDIOVASCULAR: Irregular rate and rhythm. 2/6 murmur noted. RESPIRATORY: No accessory muscle use. Clear to auscultation. Breath sounds equal bilaterally. GASTROINTESTINAL: Abdomen soft, non-tender, nondistended. Normoactive bowel sounds x4. MUSCULOSKELETAL: No obvious deformities. Extremities without clubbing, cyanosis , or edema. NEUROLOGICAL: Awake and alert. Oriented to self and place. - Urinary Catheter Management Condom Cath placed during this visit: no Results - Labs CBC & Chem 7: 12/16/17 03:33 12/16/17 16:44 Laboratory Results - last 24 hr 12/17/17 12/17/17 12/17/17 04:00 12:28 17:37 POC Glucose 216 H 216 H Hemoglobin A1c 6.7 H 12/17/17 12/18/17 19:32 08:26 POC Glucose 185 H 161 H Hemoglobin A1c - Imaging Impressions Head CTA 12/18/17 00:00 CONCLUSION: 1. Negative CTA Head. . Head MRI 12/18/17 00:40 CONCLUSION: 1. Left cerebral and cerebellar as well as right cerebellar acute infarcts. 2. Atrophy and white matter disease. Head MRA 12/18/17 00:40 CONCLUSION: 1. Negative MRA Cow ([place]) non contrast. - Procedures 12/12/17Angio with embolization of the Left distal IMax territory, performed by IR Dr. Schultz Assessment and Plan - Assessment (1) Epistaxis Code(s): R04.0 - Epistaxis Status: Acute (2) Anemia due to blood loss Code(s): D50.0 - Iron deficiency anemia secondary to blood loss (chronic) Status: Acute (3) Anemia, iron deficiency Code(s): D50.9 - Iron deficiency anemia, unspecified Status: Chronic - Plan 82-year-old man with Acute infarcts suspected of the left cerebellum and in the left posterior cerebral artery distribution Neurology input appreciate MRI Brain with finding of Left cerebral and cerebellar as well as right cerebellar acute infarcts. Neck CTA negative Will place Holter Monitoring. 2D echo pending Continue ASA LDL 25 Acute spontaneous epistaxis: secondary to Xarelto/aspirin use. - Appreciate IR and ENT input appreciated. -Patient is status post left internal maxillary embolization as well as right IMAX embolization due to persistent bleeding. -H&H remain stable Acute on chronic iron deficiency anemia and acute blood loss anemia: due to spontaneous nosebleed. Patient reports long hx of iron deficiency. - S/P PRBC transfusion. 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 -Aspirin was hold due to epistaxis; however it has been resumed 12/17 -continue home metoprolol Atrial fibrillation: chronic, rate controlled -home Xarelto due to epistaxis and anemia -follow up with financial services technician as outpatient (has financial services technician in [place]) Diabetes mellitus type 2: chronic -holding patient's metformin -Monitor Accu-checks and cover with SSI Metabolic encephalopathy Treat as in above DVT prophylaxisbilateral SCDs, no anticoagulation due to bleed/anemia (3) Anemia, iron deficiency Qualifiers: Iron deficiency anemia type: unspecified iron deficiency Qualified Code(s): D50.9 - Iron deficiency anemia, unspecified
--- NOTE | 2017-12-18 11:42 | CT ---
EXAM DATE: 12/18/2017 11:39 AM EST AGE/SEX: 82 years / Male INDICATIONS: Left-sided subacute infarcts on head CT; evaluate for dissection. CLINICAL DATA: This is the patient's initial encounter. Patient reports that signs and symptoms have been present for 1 day and indicates a pain score of Nonresponsive. MEDICAL/SURGICAL HISTORY: Cardiovascular disease. Hypertension. Diabetes. CABG. Cholecystectomy. RADIATION DOSE: 28.66 CTDI (mGy) ; Combined studies COMPARISON: No prior exams available for comparison. TECHNIQUE: Volumetric scanning was performed using a multirow detector CT scanner during bolus infus ion of 73 ml Omnipaque 350 (iohexol) nonionic water-soluble contrast as a cumulative dose for multip le exams. The data was postprocessed with a variety of visualization algorithms including full-volu me maximum intensity projection, multiplanar sliding thin-slab reformation, curved-planar reformation , and surface-rendering techniques. Using automated exposure control and adjustment of the mA and/or kV according to patient size, radiation dose was kept as low as reasonably achievable to obtain opti mal diagnostic quality images. DICOM format image data is available electronically for review and co mparison. Percent stenosis is calculated using the diameter of the stenotic region over the diameter of the nor mal distal internal carotid artery. FINDINGS: Aortic Arch: There is a three-vessel origin of the great vessels from the aorta. No evidence of ost ial narrowing Right Carotid: The common carotid artery is intact. The carotid bulb has a normal configuration wit hout ulceration or narrowing. The internal carotid artery lumen is smooth without stenosis. The ext ernal carotid artery is intact. Left Carotid: The common carotid artery is intact. Mild calcific plaque. The carotid bulb has a nor mal configuration without ulceration or narrowing. The internal carotid artery lumen is smooth witho ut stenosis. The external carotid artery is intact. Vertebrals: The vertebral arteries have a symmetric diameter. No stenotic lesions are seen. CONCLUSION: 1. Negative CTA Carotid. Electronically signed by: Danis Francois MD 12/18/2017 11:40 AM EST
[2017-12-18] MEDS: Insulin NovoLOG Aspart Correctional Sugar Inj SQ SCH ×3 (11:52→21:04)
[2017-12-18] MEDS: Sodium Chloride 0.9% 2 ML Flush BID IV.FLUSH SCH ×2 (11:53→21:05)
[2017-12-18 13:04] LABS: Baso # (Auto) 0.1 th/mm3 (0.0-0.2); Baso % (Auto) 1.2 % (0.0-2.0); Eos # (Auto) 0.2 th/mm3 (0.0-0.4); Eos % (Auto) 1.9 % (0.0-4.0); Hemoglobin 10.1 gm/dL (13.0-17.0); Lymph # (Auto) 0.6 th/mm3 (1.0-4.8); Lymph % (Auto) 7.7 % (9.0-44.0); Mean Corpuscular HGB Conc 31.7 % (32.0-36.0); Mean Corpuscular Hemoglobin 25.7 pg (27.0-34.0); Mean Corpuscular Volume 80.9 fL (80.0-100.0); Mean Platelet Volume 8.9 fL (7.0-11.0); Mono % (Auto) 11.5 % (0.0-8.0); Neut # (Auto) 6.6 th/mm3 (1.8-7.7); Neut % (Auto) 77.7 % (16.0-70.0); Platelet Count 201 th/mm3 (150-450); Red Blood Count 3.95 mil/mm3 (4.50-5.90); Red Cell Distribution Width 20.9 % (11.6-17.2); White Blood Count 8.5 th/mm3 (4.0-11.0)
[2017-12-18 13:27] LABS: Albumin 2.9 g/dL (3.4-5.0); Anion Gap 8 meq/L (5-15); Aspartate Aminotransferase 37 U/L (15-37); Blood Urea Nitrogen 14 mg/dL (7-18); Calcium 9.5 mg/dL (8.5-10.1); Carbon Dioxide 31.7 meq/L (21.0-32.0); Chloride 99 meq/L (98-107); Glomerular Filtration Rate Greater Than 89 mL/min (>89); Glucose,Random 156 mg/dL (74-106); Potassium 3.3 meq/L (3.5-5.1); Sodium 139 meq/L (136-145)
[2017-12-18 13:28] LABS: Alanine Aminotransferase 29 U/L (12-78)
[2017-12-18 13:30] LABS: Alkaline Phosphatase 91 U/L (45-117); Total Protein 6.6 g/dL (6.4-8.2)
--- NOTE | 2017-12-18 14:48 | ECHRPT ---
Indication: cva/tia CONCLUSIONS Normal left ventricular size. Mild concentric left ventricular hypertrophy. The left ventricular systolic function is low normal with an estimated ejection fraction of 50%. Po ssible moderate inferior hypokinesis. The left atrial size is mildly dilated. The right atrial size is mildly dilated. Mild mitral valve regurgitation. The aortic valve is not well visualized. Moderate calcification in the sinus of Valsalva in the re gion of the right coronary cusp. There is mild tricuspid valve regurgitation. The estimated pulmonary arterial pressure is 35 mmHg. BP: / HR: Rhythm: Sinus MEASUREMENTS (Male / Female) Normal Values Technical Quality:Good 2D ECHO LV Diastolic Diameter PLAX 4.6 cm 4.2 - 5.9 / 3.9 - 5.3 cm LV Systolic Diameter PLAX 3.8 cm IVS Diastolic Thickness 1.0 cm 0.6 - 1.0 / 0.6 - 0.9 cm LVPW Diastolic Thickness 1.0 cm 0.6 - 1.0 / 0.6 - 0.9 cm LV Relative Wall Thickness 0.5 LVOT Diameter 2.2 cm M-MODE Aortic Root Diameter MM 3.3 cm LA Systolic Diameter MM 3.4 cm LA Ao Ratio MM 1.0 AV Cusp Separation MM 1.7 cm DOPPLER AV Peak Velocity 171.0 cm/s AV Peak Gradient 11.7 mmHg LVOT Peak Velocity 78.5 cm/s LVOT Peak Gradient 2.5 mmHg AV Area Cont Eq pk 1.7 cm MR Peak Velocity 424.0 cm/s MR Peak Gradient 71.9 mmHg TR Peak Velocity 250.0 cm/s TR Peak Gradient 25.0 mmHg Right Atrial Pressure 10.0 mmHg Pulmonary Artery Systolic Pressu 35.0 mmHg Right Ventricular Systolic Press 35.0 mmHg PV Peak Velocity 86.9 cm/s PV Peak Gradient 3.0 mmHg FINDINGS LEFT VENTRICLE Normal left ventricular size. Mild concentric left ventricular hypertrophy. The left ventricular systolic function is low normal with an estimated ejection fraction of 50%. Po ssible moderate inferior hypokinesis. RIGHT VENTRICLE Normal right ventricular size and systolic function. LEFT ATRIUM The left atrial size is mildly dilated. RIGHT ATRIUM The right atrial size is mildly dilated. ATRIAL SEPTUM Normal atrial septal thickness without atrial level shunting by limited color doppler interrogation. AORTA The aortic root and proximal ascending aorta are normal in size on limited imaging. MITRAL VALVE Mild mitral valve regurgitation. AORTIC VALVE The aortic valve is not well visualized. Moderate calcification in the sinus of Valsalva in the re gion of the right coronary cusp. TRICUSPID VALVE There is mild tricuspid valve regurgitation. The estimated pulmonary arterial pressure is 35 mmHg. PULMONARY VALVE No pulmonary valve regurgitation or stenosis. VESSELS The inferior vena cava is normal in size. PERICARDIUM No pericardial effusion. Zheng Mullins MD (Electronically Signed) Final Date:18 December 2017 14:47
[2017-12-18] MEDS: Ferrous Sulfate 325 MG Tablet PO SCH (16:05)
[2017-12-18] MEDS: Finasteride 5 MG Tablet PO SCH (21:05)
[2017-12-19] MEDS: Insulin NovoLOG Aspart Correctional Sugar Inj SQ SCH ×5 (05:42→20:30)
[2017-12-19] MEDS: Ferrous Sulfate 325 MG Tablet PO SCH ×3 (05:42→17:13)
[2017-12-19 06:51] LABS: Baso # (Auto) 0.1 th/mm3 (0.0-0.2); Eos # (Auto) 0.1 th/mm3 (0.0-0.4); Eos % (Auto) 1.4 % (0.0-4.0); Hemoglobin 10.6 gm/dL (13.0-17.0); Lymph # (Auto) 0.7 th/mm3 (1.0-4.8); Lymph % (Auto) 8.2 % (9.0-44.0); Mean Corpuscular HGB Conc 32.1 % (32.0-36.0); Mean Corpuscular Hemoglobin 25.6 pg (27.0-34.0); Mean Corpuscular Volume 79.7 fL (80.0-100.0); Mean Platelet Volume 9.1 fL (7.0-11.0); Mono % (Auto) 11.6 % (0.0-8.0); Neut % (Auto) 77.8 % (16.0-70.0); Platelet Count 226 th/mm3 (150-450); Red Blood Count 4.15 mil/mm3 (4.50-5.90); Red Cell Distribution Width 20.4 % (11.6-17.2)
[2017-12-19 07:10] LABS: Alanine Aminotransferase 28 U/L (12-78); Albumin 2.9 g/dL (3.4-5.0); Anion Gap 9 meq/L (5-15); Aspartate Aminotransferase 39 U/L (15-37); Blood Urea Nitrogen 16 mg/dL (7-18); Calcium 9.5 mg/dL (8.5-10.1); Carbon Dioxide 33.8 meq/L (21.0-32.0); Chloride 97 meq/L (98-107); Glomerular Filtration Rate Greater Than 89 mL/min (>89); Glucose,Random 152 mg/dL (74-106); Potassium 3.3 meq/L (3.5-5.1); Sodium 140 meq/L (136-145)
[2017-12-19 07:13] LABS: Alkaline Phosphatase 92 U/L (45-117); Total Protein 6.4 g/dL (6.4-8.2)
[2017-12-19] MEDS: Furosemide 20 MG Tablet PO SCH (08:47)
[2017-12-19] MEDS: Aspirin 325 MG Tablet PO SCH (08:47)
[2017-12-19] MEDS: hydroCHLOROthiazide 25 MG Tablet PO SCH (08:47)
[2017-12-19] MEDS: Loratadine 10 MG Tablet PO SCH (08:48)
[2017-12-19] MEDS: Sodium Chloride 0.9% 2 ML Flush BID IV.FLUSH SCH ×2 (08:48→20:28)
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
[2017-12-19] MEDS: Finasteride 5 MG Tablet PO SCH (20:28)
[2017-12-20] MEDS: Furosemide 20 MG Tablet PO SCH (08:44)
[2017-12-20] MEDS: Insulin NovoLOG Aspart Correctional Sugar Inj SQ SCH ×4 (08:45→20:58)
[2017-12-20] MEDS: hydroCHLOROthiazide 25 MG Tablet PO SCH (08:45)
[2017-12-20] MEDS: Aspirin 325 MG Tablet PO SCH (08:45)
[2017-12-20] MEDS: Loratadine 10 MG Tablet PO SCH (08:45)
[2017-12-20] MEDS: Sodium Chloride 0.9% 2 ML Flush BID IV.FLUSH SCH ×2 (08:46→20:58)
[2017-12-20] MEDS: Ferrous Sulfate 325 MG Tablet PO SCH ×2 (13:30→18:20)
--- NOTE | 2017-12-20 13:53 | P.PN ---
Subjective Interval history: Follow-up epistaxis status post embolization/encephalopathy/Acute CVA December 20, 2017-patient seen and examined, four-point restraint leucin. Patient is alert and oriented x2. Follows commands. Physical Exam Vital signs: Vital Signs 12/19/17 16:00 12/19/17 20:00 12/20/17 00:00 Temperature 98.5 F 98.7 F 98.3 F Pulse Rate 102 H 104 H 100 H Respiratory Rate 13 16 16 Blood Pressure 143/86 H 144/88 H 140/79 Pulse Oximetry 100 97 96 12/20/17 04:00 Temperature 98.4 F Pulse Rate 98 H Respiratory Rate 25 H Blood Pressure 139/70 Pulse Oximetry 94 L Intake & Output 12/19/17 12/20/17 12/20/17 18:59 06:59 18:59 Intake Total 340 / 340 450 / 450 Output Total 575 / 575 375 / 375 Balance -235 / -235 75 / 75 Weight 77.5 kg Intake: Oral 340 / 340 450 / 450 Output: Stool 0 / 0 Urine/Stool Mix 0 / 0 Urine Amount (Catheter) 575 / 575 375 / 375 Condom 575 / 575 375 / 375 Other: # Incontinent Voids 1 Date of Last Bowel Movement 12/19/17 12/19/17 12/20/17 # Bowel Movements 0 # Incontinent Bowel Movements 2 0 Narrative: GENERAL: Elderly male with four-point restraints in place HEENT: right nasal balloon with dried blood. Mouth is dry. CARDIOVASCULAR: Irregular rate and rhythm. 2/6 murmur noted. RESPIRATORY: No accessory muscle use. Clear to auscultation. Breath sounds equal bilaterally. GASTROINTESTINAL: Abdomen soft, non-tender, nondistended. Normoactive bowel sounds x4. MUSCULOSKELETAL: No obvious deformities. Extremities without clubbing, cyanosis , or edema. NEUROLOGICAL: Awake and alert. Oriented to self and place. Following commands - Urinary Catheter Management Condom Cath placed during this visit: no Results - Labs CBC & Chem 7: 12/19/17 04:36 12/19/17 04:36 Laboratory Results - last 24 hr 12/19/17 12/19/17 12/20/17 17:06 19:23 08:16 POC Glucose 242 H 209 H 219 H 12/20/17 11:27 POC Glucose 240 H - Procedures 11/4/18Angio with embolization of the Left distal IMax territory, performed by IR Dr. 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 Neck CTA negative Holter Monitoring. 2D echo with EF 50% Continue ASA, statin. Oral anticoagulation treatment currently contraindicated due to recent episode of epistaxis requiring interventions LDL 25 Continue with PT/OT Metabolic and toxic encephalopathy Improving, will try to remove upper extremity restraints today December 19, 2017 Acute spontaneous epistaxis: secondary to Xarelto/aspirin use. - Appreciate IR and ENT input appreciated. -Patient is status post left internal maxillary embolization as well as right IMAX embolization due to persistent bleeding. -H&H remain stable Acute on chronic iron deficiency anemia and acute blood loss anemia: due to spontaneous nosebleed. Patient reports long hx of iron deficiency. - S/P PRBC transfusion. 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 -Aspirin was held due to epistaxis; however it has been resumed 12/17 -continue home metoprolol Atrial fibrillation: chronic, rate controlled -home Xarelto on hold due to epistaxis and anemia -follow up with material preparation worker as outpatient (has material preparation worker in [place]) Diabetes mellitus type 2: chronic -Resume patient's metformin -Monitor Accu-checks and cover with SSI Metabolic encephalopathy Treat as in above DVT prophylaxisbilateral SCDs, no anticoagulation due to bleed/anemia (3) Anemia, iron deficiency Qualifiers: Iron deficiency anemia type: unspecified iron deficiency Qualified Code(s): D50.9 - Iron deficiency anemia, unspecified
--- NOTE | 2017-12-20 16:02 | HM ---
Date Performed: 12/18/2017 Time Performed: 19:41:00 HOOKUP DATE: 12/18/17 07:41:00 PM Sat ANALYSIS START TIME: 12/18/2017 7:46:00 PM ANALYSIS END TIME: 12/19/2017 4:50:25 PM PATIENT AGE: 82 PATIENT HEIGHT PATIENT WEIGHT DRUG LIST PATIENT DIAGNOSIS: EPITAXIS TEST NARRATIVE: The patient's average heart rate was 102 BPM. Heart rates greater than 120 BPM were noted < 1% of the time. No episodes of bradycardia were noted. No pauses exceeding 2.0 seconds were noted. 86984 ventricular ectopics, which represented 9% of the total beat count, wer e noted. The highest ventricular ectopic frequency occurred from 08:00 PM to 09:00 PM Sat. During t his time 648 VE(s) occurred. Ventricular ectopics were observed as 9249 isolated beat(s), as 759 cou plet(s) and as 59 run(s). Some of the ventricular beats occurred in bigeminal cycles. No suprave ntricular ectopics were noted. No episodes of ST depression (defined as -1.0 mm or more) were not ed in channel 1. Multiple episodes of ST depression (defined as -1.0 mm or more) were noted in [place] eva 2. The maximum depression of -7.4 mm occurred at 01:33:54 PM Sun. In channel 3, a single episod e of ST depression (defined as -1.0 mm or more) occurred at 02:01:14 PM Sun with a maximum depression of -3.5 mm. NO DIARY MAINTAINED TEST INTERPRETATION: In agrerement with Narrativbe summary. Several ventricular runs of 3,4,5 be ats are noted. Clinical correlation is strongly recommended Signed by : Steve Scott
[2017-12-20] MEDS: glyBURIDE 2.5 MG Tablet PO SCH (18:21)
[2017-12-20] MEDS: Finasteride 5 MG Tablet PO SCH (20:58)
[2017-12-21 05:42] LABS: Baso # (Auto) 0.1 th/mm3 (0.0-0.2); Baso % (Auto) 1.2 % (0.0-2.0); Eos # (Auto) 0.2 th/mm3 (0.0-0.4); Eos % (Auto) 2.9 % (0.0-4.0); Hematocrit 31.1 % (39.0-51.0); Hemoglobin 9.9 gm/dL (13.0-17.0); Lymph # (Auto) 1.3 th/mm3 (1.0-4.8); Lymph % (Auto) 16.8 % (9.0-44.0); Mean Corpuscular HGB Conc 31.7 % (32.0-36.0); Mean Platelet Volume 8.6 fL (7.0-11.0); Mono % (Auto) 12.5 % (0.0-8.0); Neut # (Auto) 5.1 th/mm3 (1.8-7.7); Neut % (Auto) 66.6 % (16.0-70.0); Platelet Count 248 th/mm3 (150-450); Red Blood Count 3.94 mil/mm3 (4.50-5.90); Red Cell Distribution Width 20.3 % (11.6-17.2); White Blood Count 7.7 th/mm3 (4.0-11.0)
[2017-12-21 06:26] LABS: Alanine Aminotransferase 29 U/L (12-78); Alkaline Phosphatase 85 U/L (45-117); Anion Gap 8 meq/L (5-15); Aspartate Aminotransferase 34 U/L (15-37); Blood Urea Nitrogen 21 mg/dL (7-18); Calcium 9.6 mg/dL (8.5-10.1); Carbon Dioxide 34.8 meq/L (21.0-32.0); Chloride 98 meq/L (98-107); Glomerular Filtration Rate 80 mL/min (>89); Glucose,Random 77 mg/dL (74-106); Sodium 141 meq/L (136-145); Total Protein 6.5 g/dL (6.4-8.2)
[2017-12-21 06:38] LABS: Potassium 2.8 meq/L (3.5-5.1)
[2017-12-21] MEDS ORDERED: Potassium Chloride 25 MEQ Effervescent Tablet PO ONE (06:51)
[2017-12-21] MEDS ORDERED: Potassium Chlor 20 mEq Premix 20 MEQ/100 ML PIGGYBACK IV.SIG ONE (06:51)
[2017-12-21] MEDS: Loratadine 10 MG Tablet PO SCH (08:53)
[2017-12-21] MEDS: hydroCHLOROthiazide 25 MG Tablet PO SCH (08:54)
[2017-12-21] MEDS: Aspirin 325 MG Tablet PO SCH (08:54)
[2017-12-21] MEDS: Furosemide 20 MG Tablet PO SCH (08:54)
[2017-12-21] MEDS: glyBURIDE 2.5 MG Tablet PO SCH ×2 (08:54→18:21)
[2017-12-21] MEDS: Sodium Chloride 0.9% 2 ML Flush BID IV.FLUSH SCH ×2 (08:55→21:32)
[2017-12-21] MEDS: Insulin NovoLOG Aspart Correctional Sugar Inj SQ SCH ×4 (08:55→21:31)
--- NOTE | 2017-12-21 11:36 | P.PN ---
Subjective Interval history: Follow-up epistaxis status post embolization/encephalopathy/Acute CVA December 20, 2017-patient seen and examined, four-point restraint leucin. Patient is alert and oriented x2. Follows commands. December 21, 2017-patient seen and examined, quite confused this morning however follows calm command. Physical Exam Vital signs: Vital Signs 12/20/17 12:00 12/20/17 13:00 12/20/17 14:00 Temperature 97.9 F Pulse Rate 91 H 90 94 H Respiratory Rate 13 19 17 Blood Pressure 143/87 H 133/87 148/91 H Pulse Oximetry 100 100 100 12/20/17 15:00 12/20/17 16:00 12/20/17 16:01 Temperature 98.4 F Pulse Rate 95 H 104 H 101 H Respiratory Rate 24 24 22 Blood Pressure 143/90 H 130/86 Pulse Oximetry 97 86 L 88 L 12/20/17 17:00 12/20/17 18:00 12/20/17 19:00 Temperature Pulse Rate 99 H 87 94 H Respiratory Rate 20 22 21 Blood Pressure 121/84 134/88 159/87 H Pulse Oximetry 86 L 85 L 98 12/20/17 20:00 12/21/17 00:00 12/21/17 04:00 Temperature 98.4 F 98.3 F 98.2 F Pulse Rate 101 H 97 H 100 H Respiratory Rate 16 25 H 25 H Blood Pressure 142/98 H 146/81 H 114/73 Pulse Oximetry 95 95 95 Intake & Output 12/20/17 12/21/17 12/21/17 18:59 06:59 18:59 Intake Total 350 / 350 240 / 240 Output Total 750 / 750 400 / 400 Balance -400 / -400 -160 / -160 Weight 76.5 kg Intake: Oral 350 / 350 240 / 240 Output: Urine Amount (Catheter) 750 / 750 400 / 400 Condom 750 / 750 400 / 400 Other: # Incontinent Voids 2 Date of Last Bowel Movement 12/20/17 12/20/17 12/20/17 # Bowel Movements 0 # Incontinent Bowel Movements 3 Narrative: GENERAL: Elderly male in no acute distress but patient is confused HEENT: right nasal balloon with dried blood. CARDIOVASCULAR: Irregular rate and rhythm. 2/6 murmur noted. RESPIRATORY: No accessory muscle use. Clear to auscultation. Breath sounds equal bilaterally. GASTROINTESTINAL: Abdomen soft, non-tender, nondistended. Normoactive bowel sounds x4. MUSCULOSKELETAL: No obvious deformities. Extremities without clubbing, cyanosis , or edema. NEUROLOGICAL: Awake and alert. Oriented to self and place. Following commands - Urinary Catheter Management Condom Cath placed during this visit: no Results - Labs CBC & Chem 7: 12/21/17 04:39 12/21/17 04:39 Laboratory Results - last 24 hr 12/20/17 12/20/17 12/21/17 16:29 20:51 04:39 WBC 7.7 RBC 3.94 L Hgb 9.9 L Hct 31.1 L MCV 79.0 L MCH 25.0 L MCHC 31.7 L RDW 20.3 H Plt Count 248 MPV 8.6 Neut % (Auto) 66.6 Lymph % (Auto) 16.8 [place] % (Auto) 12.5 H Eos % (Auto) 2.9 Baso % (Auto) 1.2 Neut # (Auto) 5.1 Lymph # (Auto) 1.3 [place] # (Auto) 1.0 H Eos # (Auto) 0.2 Baso # (Auto) 0.1 WBC Differential . Differential Comment Auto diff final Sodium Potassium Chloride Carbon Dioxide Anion Gap BUN Creatinine Estimated GFR POC Glucose 162 H 156 H Random Glucose Calcium Total Bilirubin AST ALT Alkaline Phosphatase Total Protein Albumin 12/21/17 12/21/17 04:39 08:50 WBC RBC Hgb Hct MCV MCH MCHC RDW Plt Count MPV Neut % (Auto) Lymph % (Auto) [place] % (Auto) Eos % (Auto) Baso % (Auto) Neut # (Auto) Lymph # (Auto) [place] # (Auto) Eos # (Auto) Baso # (Auto) WBC Differential Differential Comment Sodium 141 Potassium 2.8 L* Chloride 98 Carbon Dioxide 34.8 H Anion Gap 8 BUN 21 H Creatinine 0.91 Estimated GFR 80 L POC Glucose 90 Random Glucose 77 Calcium 9.6 Total Bilirubin 0.9 AST 34 ALT 29 Alkaline Phosphatase 85 Total Protein 6.5 Albumin 3.0 L - Procedures 12/12/17Angio with embolization of the Left distal IMax territory, performed by IR Dr. 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 Neck CTA negative Holter Monitoring. 2D echo with EF 50% Continue ASA, statin. Oral anticoagulation treatment currently contraindicated due to recent episode of epistaxis requiring interventions LDL 25 Continue with PT/OT Metabolic and toxic encephalopathy Will order head CT secondary to altered mental status change today December 21, 2017 Acute spontaneous epistaxis: secondary to Xarelto/aspirin use. - Appreciate IR and ENT input appreciated. -Patient is status post left internal maxillary embolization as well as right IMAX embolization due to persistent bleeding. -H&H remain stable Acute on chronic iron deficiency anemia and acute blood loss anemia: due to spontaneous nosebleed. Patient reports long hx of iron deficiency. - S/P PRBC transfusion. 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 -Aspirin was held due to epistaxis; however it has been resumed 12/17 -continue home metoprolol Atrial fibrillation: chronic, rate controlled -home Xarelto on hold due to epistaxis and anemia -follow up with second crusher as outpatient (has second crusher in [place]) Diabetes mellitus type 2: chronic -Resume patient's metformin -Monitor Accu-checks and cover with SSI DVT prophylaxisbilateral SCDs, no anticoagulation due to bleed/anemia (3) Anemia, iron deficiency Qualifiers: Iron deficiency anemia type: unspecified iron deficiency Qualified Code(s): D50.9 - Iron deficiency anemia, unspecified
[2017-12-21] MEDS: Ferrous Sulfate 325 MG Tablet PO SCH ×2 (13:30→18:21)
[2017-12-21] MEDS: Finasteride 5 MG Tablet PO SCH (21:31)
--- NOTE | 2017-12-22 04:27 | CT ---
EXAM DATE: 12/22/2017 4:14 AM EST AGE/SEX: 82 years / Male INDICATIONS: Altered mental status. History of recent left cerebellar and right cerebellar infarcts. CLINICAL DATA: This is the patient's initial encounter. Patient reports that signs and symptoms have been present for 1 day and indicates a pain score of Nonresponsive. MEDICAL/SURGICAL HISTORY: Cardiovascular disease. Hypertension. Diabetes mellitus type II. CABG. Cholecystectomy. RADIATION DOSE: 34.67 CTDI (mGy) COMPARISON: [facility] [place], CT HEAD W/O CONTRAST, 12/16/2017. . TECHNIQUE: CT of the head without contrast. Using automated exposure control and adjustment of the mA and/or kV according to patient size, radiation dose was kept as low as reasonably achievable to ob tain optimal diagnostic quality images. DICOM format image data is available electronically for revi ew and comparison. FINDINGS: The areas of low density edema in the cerebellar hemispheres have decreased slightly since the prior study. This remains greater on the left than the right. There is diffuse atrophic changes noted with sulcal and ventricular prominence. Chronic small vessel ischemic changes are again noted in the periv entricular white matter. There is no acute hemorrhage or mass effect. The ventricular system remains. The bony structures are intact. CONCLUSION: 1. Involving strokes cerebellar hemispheres left greater than right. 2. No acute hemorrhage or mass effect. 3. Atrophy and chronic small vessel ischemic changes again noted. . Electronically signed by: James Crisostomo MD 12/22/2017 4:25 AM EST
[2017-12-22 06:08] LABS: White Blood Count 8.2 th/mm3 (4.0-11.0)
[2017-12-22 06:09] LABS: Baso # (Auto) 0.1 th/mm3 (0.0-0.2); Baso % (Auto) 0.9 % (0.0-2.0); Eos # (Auto) 0.1 th/mm3 (0.0-0.4); Eos % (Auto) 1.7 % (0.0-4.0); Hematocrit 32.5 % (39.0-51.0); Lymph # (Auto) 1.3 th/mm3 (1.0-4.8); Lymph % (Auto) 15.8 % (9.0-44.0); Mean Corpuscular Hemoglobin 24.8 pg (27.0-34.0); Mean Platelet Volume 8.7 fL (7.0-11.0); Mono # (Auto) 1.1 th/mm3 (0.0-0.9); Mono % (Auto) 13.9 % (0.0-8.0); Neut # (Auto) 5.5 th/mm3 (1.8-7.7); Neut % (Auto) 67.7 % (16.0-70.0); Platelet Count 250 th/mm3 (150-450); Red Blood Count 4.01 mil/mm3 (4.50-5.90); Red Cell Distribution Width 20.6 % (11.6-17.2)
[2017-12-22 06:22] LABS: Mean Corpuscular HGB Conc 30.7 % (32.0-36.0)
[2017-12-22 06:44] LABS: Alanine Aminotransferase 31 U/L (12-78); Albumin 3.2 g/dL (3.4-5.0); Alkaline Phosphatase 89 U/L (45-117); Anion Gap 7 meq/L (5-15); Aspartate Aminotransferase 47 U/L (15-37); Blood Urea Nitrogen 19 mg/dL (7-18); Carbon Dioxide 33.8 meq/L (21.0-32.0); Chloride 99 meq/L (98-107); Glomerular Filtration Rate 81 mL/min (>89); Potassium 3.2 meq/L (3.5-5.1); Sodium 140 meq/L (136-145)
[2017-12-22 06:50] LABS: Glucose,Random 36 mg/dL (74-106)
[2017-12-22] MEDS ORDERED: Dextrose 50% in Water Syringe 50 ML ONE ×4 (06:52→21:40)
[2017-12-22] MEDS: Aspirin 325 MG Tablet PO SCH (09:00)
[2017-12-22] MEDS: glyBURIDE 2.5 MG Tablet PO SCH ×2 (09:00→17:44)
[2017-12-22] MEDS: Sodium Chloride 0.9% 2 ML Flush BID IV.FLUSH SCH ×2 (09:01→20:35)
[2017-12-22] MEDS: hydroCHLOROthiazide 25 MG Tablet PO SCH (09:01)
[2017-12-22] MEDS: Furosemide 20 MG Tablet PO SCH (09:01)
[2017-12-22] MEDS: Loratadine 10 MG Tablet PO SCH (09:01)
[2017-12-22] MEDS: Insulin NovoLOG Aspart Correctional Sugar Inj SQ SCH ×4 (10:36→20:35)
--- NOTE | 2017-12-22 12:04 | P.PN ---
Subjective Interval history: Follow-up epistaxis status post embolization/encephalopathy/Acute CVA December 20, 2017-patient seen and examined, four-point restraint leucin. Patient is alert and oriented x2. Follows commands. December 21, 2017-patient seen and examined, quite confused this morning however follows calm command. December 22, 2017-patient seen and examined, more alert today and follows some commands. He was working with PT. Has a small tear on his left buttock Physical Exam Vital signs: Vital Signs 12/21/17 12:00 12/21/17 15:00 12/21/17 16:00 Temperature 98 F 98 F Pulse Rate 89 92 H 97 H Respiratory Rate 29 H 22 19 Blood Pressure 161/78 H 145/86 H Pulse Oximetry 94 L 100 100 12/21/17 20:00 12/22/17 00:00 12/22/17 04:00 Temperature 98.6 F 98.4 F 98.5 F Pulse Rate 100 H 93 H 95 H Respiratory Rate 24 20 18 Blood Pressure 157/90 H 146/90 H 148/81 H Pulse Oximetry 100 99 99 12/22/17 08:00 12/22/17 08:30 12/22/17 09:00 Temperature 98 F Pulse Rate 85 84 Respiratory Rate 21 25 H Blood Pressure 144/87 H Pulse Oximetry 84 L 100 99 12/22/17 09:38 12/22/17 10:00 12/22/17 10:01 Temperature Pulse Rate 86 83 82 Respiratory Rate 21 17 19 Blood Pressure 127/75 160/79 H Pulse Oximetry 99 100 100 Intake & Output 12/21/17 12/22/17 12/22/17 18:59 06:59 18:59 Intake Total 450 / 450 240 / 240 Output Total 800 / 800 500 / 500 Balance -350 / -350 -260 / -260 Weight 76.5 kg Intake: IV 100 / 100 Oral 350 / 350 240 / 240 Output: Urine Amount (Catheter) 800 / 800 500 / 500 Condom 800 / 800 500 / 500 Other: Date of Last Bowel Movement 12/21/17 12/22/17 12/22/17 # Bowel Movements 1 # Incontinent Bowel Movements 3 Narrative: GENERAL: Elderly male in no acute distress HEENT: right nasal balloon with dried blood. Skin: small skin tear left buttock CARDIOVASCULAR: Irregular rate and rhythm. 2/6 murmur noted. RESPIRATORY: No accessory muscle use. Clear to auscultation. Breath sounds equal bilaterally. GASTROINTESTINAL: Abdomen soft, non-tender, nondistended. Normoactive bowel sounds x4. MUSCULOSKELETAL: No obvious deformities. Extremities without clubbing, cyanosis , or edema. NEUROLOGICAL: Awake and alert. Oriented to self and place. Following commands - Urinary Catheter Management Condom Cath placed during this visit: no Results - Labs CBC & Chem 7: 12/22/17 04:41 12/22/17 04:41 Laboratory Results - last 24 hr 12/21/17 12/21/17 12/21/17 11:54 16:50 20:40 WBC RBC Hgb Hct MCV MCH MCHC RDW Plt Count MPV Neut % (Auto) Lymph % (Auto) [place] % (Auto) Eos % (Auto) Baso % (Auto) Neut # (Auto) Lymph # (Auto) [place] # (Auto) Eos # (Auto) Baso # (Auto) WBC Differential Differential Comment Sodium Potassium Chloride Carbon Dioxide Anion Gap BUN Creatinine Estimated GFR POC Glucose 141 H 114 H 92 Random Glucose Calcium Total Bilirubin AST ALT Alkaline Phosphatase Total Protein Albumin 12/22/17 12/22/17 12/22/17 04:41 04:41 07:11 WBC 8.2 RBC 4.01 L Hgb 10.0 L Hct 32.5 L MCV 81.0 MCH 24.8 L MCHC 30.7 L RDW 20.6 H Plt Count 250 MPV 8.7 Neut % (Auto) 67.7 Lymph % (Auto) 15.8 [place] % (Auto) 13.9 H Eos % (Auto) 1.7 Baso % (Auto) 0.9 Neut # (Auto) 5.5 Lymph # (Auto) 1.3 [place] # (Auto) 1.1 H Eos # (Auto) 0.1 Baso # (Auto) 0.1 WBC Differential . Differential Comment Auto diff final Sodium 140 Potassium 3.2 L Chloride 99 Carbon Dioxide 33.8 H Anion Gap 7 BUN 19 H Creatinine 0.90 Estimated GFR 81 L POC Glucose 160 H Random Glucose 36 L* Calcium 10.0 Total Bilirubin 0.8 AST 47 H ALT 31 Alkaline Phosphatase 89 Total Protein 7.0 Albumin 3.2 L - Imaging Impressions Head CT 12/22/17 00:00 CONCLUSION: 1. Involving strokes cerebellar hemispheres left greater than right. 2. No acute hemorrhage or mass effect. 3. Atrophy and chronic small vessel ischemic changes again noted. . - Procedures 12/12/17Angio with embolization of the Left distal IMax territory, performed by IR Dr. 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 Repeat Head CT 12/21/17 with Involving strokes cerebellar hemispheres left greater than right 2D echo with EF 50% Continue ASA, statin. Oral anticoagulation treatment currently contraindicated due to recent episode of epistaxis requiring interventions Continue with PT/OT Metabolic and toxic encephalopathy 2/2 from Above Acute spontaneous epistaxis: secondary to Xarelto/aspirin use. - Appreciate IR and ENT input appreciated. -Patient is status post left internal maxillary embolization as well as right IMAX embolization due to persistent bleeding. -H&H remain stable Acute on chronic iron deficiency anemia and acute blood loss anemia: due to spontaneous nosebleed. Patient reports long hx of iron deficiency. - S/P PRBC transfusion. 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 -Aspirin was held due to epistaxis; however it has been resumed 12/17 -continue home metoprolol Atrial fibrillation: chronic, rate controlled -home Xarelto on hold due to epistaxis and anemia -follow up with bullet charging machine operator as outpatient (has bullet charging machine operator in [place]) Diabetes mellitus type 2: chronic -Resume patient's metformin -Monitor Accu-checks and cover with SSI DVT prophylaxisbilateral SCDs, no anticoagulation due to bleed/anemia (3) Anemia, iron deficiency Qualifiers: Iron deficiency anemia type: unspecified iron deficiency Qualified Code(s): D50.9 - Iron deficiency anemia, unspecified
[2017-12-22] MEDS: Ferrous Sulfate 325 MG Tablet PO SCH ×2 (13:35→17:44)
--- NOTE | 2017-12-22 14:49 | P.PNNEU ---
Subjective Subjective Comments: Pt is lethargic. No other neuro sx. Active Medications: Active Medications Acetaminophen (Tylenol) 650 mg PO Q4H PRN PRN Reason: PAIN 1-10 AND/OR FEVER >101F Al Hydroxide/Mg Hydroxide (Milk Of Magnesia Liq) 30 ml PO Q12H PRN PRN Reason: Mild Constipation Aspirin (Aspirin) 325 mg PO DAILY [facility] Last Admin: 12/22/17 09:00 Dose: 325 mg Bisacodyl (Dulcolax Supp) 10 mg RECTAL DAILY PRN PRN Reason: SEVERE CONSITIPATION Dextrose (D50w Vial) 50 ml IV.PUSH UNSCH PRN PRN Reason: PER HYPOGLYCEMIA PROTOCOL Last Admin: 12/22/17 13:35 Dose: 50 ml Docusate Sodium (Colace) 100 mg PO DAILY PRN PRN Reason: Constipation Last Admin: 12/16/17 07:53 Dose: 100 mg Ferrous Sulfate (Ferosul) 325 mg PO BID@1200,1700 [facility] Last Admin: 12/22/17 13:35 Dose: 325 mg Finasteride (Proscar) 5 mg PO [facility] Last Admin: 12/21/17 21:31 Dose: 5 mg Furosemide (Lasix) 20 mg PO DAILY [facility] Last Admin: 12/22/17 09:01 Dose: 20 mg Glucagon (Glucagon Inj) 1 mg OTHER PRN PRN PRN Reason: for Hypoglycemia [facility] Admin: 12/22/17 09:00 Dose: 2.5 mg Hydrochlorothiazide (Hydrodiuril) 25 mg PO DAILY [facility] Last Admin: 12/22/17 09:01 Dose: 25 mg Insulin Aspart (Novolog Insulin Correctional Sugar Inj) 0 unit SQ [facility]; Protocol Last Admin: 12/22/17 13:35 Dose: Not Given Lactulose (Lactulose Liq) 30 ml PO DAILY PRN PRN Reason: SEVERE CONSITIPATION Loratadine (Claritin) 10 mg PO DAILY [facility] Last Admin: 12/22/17 09:01 Dose: 10 mg Metformin HCl (Glucophage) 500 mg PO BIDPC [facility] Last Admin: 12/22/17 09:01 Dose: 500 mg Metoprolol Succinate (Toprol Xl) 25 mg PO BID [facility] Last Admin: 12/22/17 09:00 Dose: 25 mg Ondansetron HCl (Zofran Inj) 4 mg IV.PUSH Q6H PRN PRN Reason: NAUSEA OR VOMITING Last Admin: 12/12/17 15:44 Dose: 4 mg Pantoprazole Sodium (Protonix) 40 mg PO DAILY [facility] Last Admin: 12/22/17 09:01 Dose: 40 mg Potassium Chloride (Klor-Con 10) 10 meq PO BID [facility] Last Admin: 12/22/17 09:01 Dose: 10 meq Pravastatin Sodium (Pravachol) 40 mg PO QPM [facility] Last Admin: 12/21/17 18:22 Dose: 40 mg Sennosides (Senokot) 17.2 mg PO Q12H PRN PRN Reason: Moderate Constipation Sodium Chloride (Ns Flush) 2 ml IV.FLUSH BID [facility] Last Admin: 12/22/17 09:01 Dose: 2 ml Sodium Chloride (Ns Flush) 2 ml IV.FLUSH PRN PRN PRN Reason: FLUSH AFTER USING IV ACCESS Allergies/Adverse Reactions: Allergies Allergy/AdvReac Type Severity Reaction Status Date / Time Sulfa (Sulfonamide Allergy Blister Verified 12/09/17 10:33 Antibiotics) Physical Exam Vital signs: Vital Signs 12/21/17 15:00 12/21/17 16:00 12/21/17 20:00 Temperature 98 F 98.6 F Pulse Rate 92 H 97 H 100 H Respiratory Rate 22 19 24 Blood Pressure 145/86 H 157/90 H Pulse Oximetry 100 100 100 12/22/17 00:00 12/22/17 04:00 12/22/17 08:00 Temperature 98.4 F 98.5 F 98 F Pulse Rate 93 H 95 H 85 Respiratory Rate 20 18 21 Blood Pressure 146/90 H 148/81 H 144/87 H Pulse Oximetry 99 99 84 L 12/22/17 08:30 12/22/17 09:00 12/22/17 09:38 Temperature Pulse Rate 84 86 Respiratory Rate 25 H 21 Blood Pressure 127/75 Pulse Oximetry 100 99 99 12/22/17 10:00 12/22/17 10:01 12/22/17 11:00 Temperature Pulse Rate 83 82 81 Respiratory Rate 17 19 15 Blood Pressure 160/79 H 149/92 H Pulse Oximetry 100 100 100 12/22/17 12:00 12/22/17 13:00 Temperature Pulse Rate 85 98 H Respiratory Rate 20 14 Blood Pressure 148/95 H 140/83 Pulse Oximetry 100 100 Intake & Output 12/21/17 12/22/17 12/22/17 18:59 06:59 18:59 Intake Total 450 / 450 240 / 240 Output Total 800 / 800 500 / 500 Balance -350 / -350 -260 / -260 Weight 76.5 kg Intake: IV 100 / 100 Oral 350 / 350 240 / 240 Output: Urine Amount (Catheter) 800 / 800 500 / 500 Condom 800 / 800 500 / 500 Other: Date of Last Bowel Movement 12/21/17 12/22/17 12/22/17 # Bowel Movements 1 # Incontinent Bowel Movements 3 - Routine Neurological Exam lethargic, arousable, follow simple commands. Speech dysarthric CN intact MOTOR--generalized weakness but no focal deficit Has dysmetria and tremors BUE - Urinary Catheter Management Condom Cath placed during this visit: no Objective Radiology Results: CT brain--bilateral cereebellar strokes L>R with decrease in edema.. No mass effect on fourth ventricle or brainstem, no hemorrhage CTA brain--no significant stenosis Laboratory Results - last 24 hr 12/21/17 12/21/17 12/22/17 16:50 20:40 04:41 WBC 8.2 RBC 4.01 L Hgb 10.0 L Hct 32.5 L MCV 81.0 MCH 24.8 L MCHC 30.7 L RDW 20.6 H Plt Count 250 MPV 8.7 Neut % (Auto) 67.7 Lymph % (Auto) 15.8 [place] % (Auto) 13.9 H Eos % (Auto) 1.7 Baso % (Auto) 0.9 Neut # (Auto) 5.5 Lymph # (Auto) 1.3 [place] # (Auto) 1.1 H Eos # (Auto) 0.1 Baso # (Auto) 0.1 WBC Differential . Differential Comment Auto diff final Sodium Potassium Chloride Carbon Dioxide Anion Gap BUN Creatinine Estimated GFR POC Glucose 114 H 92 Random Glucose Calcium Total Bilirubin AST ALT Alkaline Phosphatase Total Protein Albumin 12/22/17 12/22/17 12/22/17 04:41 07:11 13:27 WBC RBC Hgb Hct MCV MCH MCHC RDW Plt Count MPV Neut % (Auto) Lymph % (Auto) [place] % (Auto) Eos % (Auto) Baso % (Auto) Neut # (Auto) Lymph # (Auto) [place] # (Auto) Eos # (Auto) Baso # (Auto) WBC Differential Differential Comment Sodium 140 Potassium 3.2 L Chloride 99 Carbon Dioxide 33.8 H Anion Gap 7 BUN 19 H Creatinine 0.90 Estimated GFR 81 L POC Glucose 160 H 42 L* Random Glucose 36 L* Calcium 10.0 Total Bilirubin 0.8 AST 47 H ALT 31 Alkaline Phosphatase 89 Total Protein 7.0 Albumin 3.2 L 12/22/17 12/22/17 13:27 14:01 WBC RBC Hgb Hct MCV MCH MCHC RDW Plt Count MPV Neut % (Auto) Lymph % (Auto) [place] % (Auto) Eos % (Auto) Baso % (Auto) Neut # (Auto) Lymph # (Auto) [place] # (Auto) Eos # (Auto) Baso # (Auto) WBC Differential Differential Comment Sodium Potassium Chloride Carbon Dioxide Anion Gap BUN Creatinine Estimated GFR POC Glucose 50 L 145 H Random Glucose Calcium Total Bilirubin AST ALT Alkaline Phosphatase Total Protein Albumin Review/Management - Diagnosis (1) CVA (cerebral vascular accident) Code(s): I63.9 - Cerebral infarction, unspecified Status: Acute Current Visit: Yes - Review/Management Plan: 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 unable to anticoagulate at this time due to severe recent epistaxis. Continue asa Lethargy is probably related to the cerebellar strokes although is no mass effect
[2017-12-22] MEDS: Finasteride 5 MG Tablet PO SCH (20:34)
[2017-12-22] MEDS ORDERED: Dextrose 5% in Water Inj 1,000 ML IV.CONT SCH (22:00)
[2017-12-23] MEDS: hydroCHLOROthiazide 25 MG Tablet PO SCH (08:57)
[2017-12-23] MEDS: Aspirin 325 MG Tablet PO SCH (08:57)
[2017-12-23] MEDS: Furosemide 20 MG Tablet PO SCH (08:57)
[2017-12-23] MEDS: Sodium Chloride 0.9% 2 ML Flush BID IV.FLUSH SCH ×2 (08:58→21:55)
[2017-12-23] MEDS: Insulin NovoLOG Aspart Correctional Sugar Inj SQ SCH ×4 (08:58→21:55)
[2017-12-23] MEDS: Loratadine 10 MG Tablet PO SCH (08:58)
[2017-12-23] MEDS: Ferrous Sulfate 325 MG Tablet PO SCH ×2 (13:02→18:57)
--- NOTE | 2017-12-23 16:36 | P.PN ---
Subjective Interval history: patient is awake - alert on exam- stted his name ff simple commands- like showing 2 fingers and lifting his legs stated his name- speech clear no headaches- when asked whena sonya dahl if in pain- states back pain from laying down telemetry in a fib- rate controlled no further epistaxis Physical Exam Vital signs: Vital Signs 12/22/17 20:00 12/23/17 00:00 12/23/17 00:10 Temperature 98.2 F 98.4 F Pulse Rate 86 90 Respiratory Rate 17 18 Blood Pressure 121/85 124/72 Pulse Oximetry 94 L 94 L 98 12/23/17 04:00 12/23/17 04:09 12/23/17 08:00 Temperature 98.0 F 98.1 F Pulse Rate 87 82 Respiratory Rate 25 H 18 Blood Pressure 111/75 Pulse Oximetry 95 94 L 98 12/23/17 08:01 12/23/17 09:00 12/23/17 10:00 Temperature Pulse Rate 81 84 83 Respiratory Rate 26 H 25 H 29 H Blood Pressure 139/76 108/72 123/76 Pulse Oximetry 100 98 12/23/17 11:00 12/23/17 11:01 12/23/17 12:00 Temperature Pulse Rate 82 81 82 Respiratory Rate 24 23 18 Blood Pressure 111/74 109/63 Pulse Oximetry 98 98 98 12/23/17 13:00 12/23/17 13:01 12/23/17 14:00 Temperature Pulse Rate 82 82 85 Respiratory Rate 24 22 18 Blood Pressure 134/70 135/70 Pulse Oximetry 89 L 88 L 99 Intake & Output 12/22/17 12/23/17 12/23/17 18:59 06:59 18:59 Intake Total 300 / 300 870 / 870 1000 / 1000 Output Total 700 / 700 500 / 500 Balance -400 / -400 370 / 370 1000 / 1000 Weight 78 kg Intake: IV 50 / 50 150 / 150 1000 / 1000 D50W Syringe 50 ML @ 0 mls/hr . 150 / 150 [address] .STK-MED ONE Rx#:[id number] D5W Inj 1,000 ML @ 70 mls/hr IV 1000 / 1000 .CONT .[id number] [facility] Rx#:[id number] Oral 250 / 250 720 / 720 Output: Urine Amount (Catheter) 700 / 700 500 / 500 Condom 700 / 700 500 / 500 Other: Date of Last Bowel Movement 12/22/17 12/23/17 12/23/17 # Bowel Movements 2 Narrative: GENERAL: Elderly male in no acute distress HEENT: no epistaxis Skin: small skin tear left buttock CARDIOVASCULAR: Irregularly irregular rhythm 2/6 murmur noted. RESPIRATORY: No accessory muscle use. Clear to auscultation. Breath sounds equal bilaterally. GASTROINTESTINAL: Abdomen soft, non-tender, nondistended. Normoactive bowel sounds x4. MUSCULOSKELETAL: No obvious deformities. Extremities without clubbing, cyanosis , or edema. comdom catheter in place NEUROLOGICAL: Awake and alert. Oriented to self and place. Following commands moves all extremities with equal strength - Urinary Catheter Management Condom Cath placed during this visit: no Results - Labs CBC & Chem 7: 12/22/17 04:41 12/22/17 04:41 Laboratory Results - last 24 hr 12/22/17 12/22/17 12/22/17 17:11 20:27 20:52 POC Glucose 79 51 L 54 L 12/22/17 12/22/17 12/23/17 21:17 22:03 03:59 POC Glucose 70 124 H 106 12/23/17 12:50 POC Glucose 124 H - Procedures 12/12/17Angio with embolization of the Left distal IMax territory, performed by IR Dr. 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 Repeat Head CT 12/21/17 with Involving strokes cerebellar hemispheres left greater than right 2D echo with EF 50% Continue ASA, statin. Oral anticoagulation treatment currently contraindicated due to recent episode of epistaxis requiring interventions Continue with PT/OT Metabolic and toxic encephalopathy 2/2 from Above Acute spontaneous epistaxis: secondary to Xarelto/aspirin use.- no further episodes - Appreciate IR and ENT input appreciated. -Patient is status post left internal maxillary embolization as well as right IMAX embolization due to persistent bleeding. -H&H remain stable Acute on chronic iron deficiency anemia and acute blood loss anemia: due to spontaneous nosebleed. Patient reports long hx of iron deficiency. - S/P PRBC transfusion. 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 -Aspirin was held due to epistaxis; however it has been resumed 12/17 -continue home metoprolol Atrial fibrillation: chronic, rate controlled -home Xarelto on hold due to epistaxis and anemia -follow up with wire turning machine operator as outpatient (has wire turning machine operator in [place]) Diabetes mellitus type 2: chronic HYpoglycemic readings 12/22 -gwas on Metformin and Glyburide - on hold - no further hypoglycemic readings -Monitor Accu-checks and cover with SSI DVT prophylaxisbilateral SCDs, no anticoagulation due to bleed/anemia CM consult fpr DC planning- looking for SNF in [place] (3) Anemia, iron deficiency Qualifiers: Iron deficiency anemia type: unspecified iron deficiency Qualified Code(s): D50.9 - Iron deficiency anemia, unspecified
[2017-12-23] MEDS: Finasteride 5 MG Tablet PO SCH (21:55)
--- NOTE | 2017-12-24 07:44 | P.PN ---
Subjective Interval history: telemetry- a fib- rhythm-rate controlled awake and alert, interactive tolerating po - current diet well stated his name , "[facility]" , knows the President "Cleopatra" ff all commands low back discomfort "from laying" Physical Exam Vital signs: Vital Signs 12/23/17 08:00 12/23/17 08:01 12/23/17 09:00 Temperature 98.1 F Pulse Rate 82 81 84 Respiratory Rate 18 26 H 25 H Blood Pressure 139/76 108/72 Pulse Oximetry 98 100 98 12/23/17 10:00 12/23/17 11:00 12/23/17 11:01 Temperature Pulse Rate 83 82 81 Respiratory Rate 29 H 24 23 Blood Pressure 123/76 111/74 Pulse Oximetry 98 98 12/23/17 12:00 12/23/17 13:00 12/23/17 13:01 Temperature Pulse Rate 82 82 82 Respiratory Rate 18 24 22 Blood Pressure 109/63 134/70 Pulse Oximetry 98 89 L 88 L 12/23/17 14:00 12/23/17 15:00 12/23/17 16:00 Temperature Pulse Rate 85 86 84 Respiratory Rate 18 15 17 Blood Pressure 135/70 111/70 Pulse Oximetry 99 99 99 12/23/17 16:01 12/23/17 17:00 12/23/17 18:00 Temperature Pulse Rate 87 84 89 Respiratory Rate 26 H 16 17 Blood Pressure 131/77 139/84 128/69 Pulse Oximetry 99 100 99 12/23/17 19:00 12/23/17 20:00 12/23/17 21:00 Temperature 97.6 F Pulse Rate 90 87 89 Respiratory Rate 21 19 15 Blood Pressure 138/85 135/83 130/80 Pulse Oximetry 98 99 99 12/23/17 22:00 12/23/17 23:00 12/24/17 00:00 Temperature Pulse Rate 93 H 89 84 Respiratory Rate 22 17 26 H Blood Pressure 135/74 133/83 133/80 Pulse Oximetry 88 L 98 12/24/17 01:00 12/24/17 01:01 12/24/17 02:00 Temperature Pulse Rate 83 85 86 Respiratory Rate 21 23 33 H Blood Pressure 140/90 151/82 H Pulse Oximetry 97 12/24/17 03:00 12/24/17 03:01 12/24/17 04:00 Temperature 98.6 F Pulse Rate 87 83 85 Respiratory Rate 33 H 24 29 H Blood Pressure 151/78 H Pulse Oximetry 94 L 97 95 12/24/17 04:01 12/24/17 05:00 12/24/17 05:02 Temperature Pulse Rate 84 99 H 88 Respiratory Rate 22 39 H 35 H Blood Pressure 140/80 110/63 Pulse Oximetry 89 L 91 L 91 L 12/24/17 06:00 Temperature Pulse Rate 85 Respiratory Rate 31 H Blood Pressure 111/75 Pulse Oximetry 96 Intake & Output 12/23/17 12/24/17 12/24/17 18:59 06:59 18:59 Intake Total 1250 / 1250 120 / 120 Output Total 550 / 550 300 / 300 Balance 700 / 700 -180 / -180 Weight 77 kg Intake: IV 1000 / 1000 D5W Inj 1,000 ML @ 70 mls/hr IV 1000 / 1000 .CONT .[id number] [facility] Rx#:[id number] Oral 250 / 250 120 / 120 Output: Urine 0 / 0 Stool 0 / 0 Urine/Stool Mix 0 / 0 Emesis 0 / 0 Urine Amount (Catheter) 550 / 550 300 / 300 Condom 550 / 550 300 / 300 Other: # Voids 3 # Incontinent Voids 3 Date of Last Bowel Movement 12/23/17 12/24/17 # Bowel Movements 2 # Incontinent Bowel Movements 2 # Emeses 0 Narrative: GENERAL: Elderly male in no acute distress HEENT: no epistaxis Skin: small skin tear left buttock CARDIOVASCULAR: Irregularly irregular rhythm 2/6 murmur noted. RESPIRATORY: No accessory muscle use. Clear to auscultation. Breath sounds equal bilaterally. GASTROINTESTINAL: Abdomen soft, non-tender, nondistended. Normoactive bowel sounds x4. MUSCULOSKELETAL: No obvious deformities. Extremities without clubbing, cyanosis , or edema. comdom catheter in place NEUROLOGICAL: Awake and alert. Oriented to self and place. Following commands CN grossly intact moves all extremities with equal strength - Urinary Catheter Management Condom Cath placed during this visit: no Results - Labs CBC & Chem 7: 12/22/17 04:41 12/22/17 04:41 Laboratory Results - last 24 hr 12/23/17 12/23/17 12:50 21:25 POC Glucose 124 H 206 H - Procedures 12/12/17Angio with embolization of the Left distal IMax territory, performed by IR Dr. 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 Repeat Head CT 12/21/17 with Involving strokes cerebellar hemispheres left greater than right 2D echo with EF 50% Continue ASA, statin. Oral anticoagulation treatment currently contraindicated due to recent episode of epistaxis requiring interventions Continue with PT/OT Metabolic and toxic encephalopathy= Improved 2/2 from Above Acute spontaneous epistaxis: secondary to Xarelto/aspirin use.- no further episodes - Appreciate IR and ENT input appreciated. -Patient is status post left internal maxillary embolization as well as right IMAX embolization due to persistent bleeding. -H&H remain stable Acute on chronic iron deficiency anemia and acute blood loss anemia: due to spontaneous nosebleed. Patient reports long hx of iron deficiency. - S/P PRBC transfusion. 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 -Aspirin was held due to epistaxis; however it has been resumed 12/17 -continue home metoprolol Atrial fibrillation: chronic, rate controlled -home Xarelto on hold due to epistaxis and anemia -follow up with directional bore operator as outpatient (has directional bore operator in [place]) Diabetes mellitus type 2: chronic HYpoglycemic readings 12/22 -gwas on Metformin and Glyburide - on hold - no further hypoglycemic readings -Monitor Accu-checks and cover with SSI DVT prophylaxisbilateral SCDs, no anticoagulation due to bleed/anemia CM consult fpr DC planning- looking for SNF in [place] Transfer to medical floor Out of bed to [facility] (3) Anemia, iron deficiency Qualifiers: Iron deficiency anemia type: unspecified iron deficiency Qualified Code(s): D50.9 - Iron deficiency anemia, unspecified
[2017-12-24] MEDS: Furosemide 20 MG Tablet PO SCH (09:00)
[2017-12-24] MEDS: hydroCHLOROthiazide 25 MG Tablet PO SCH (09:18)
[2017-12-24] MEDS: Loratadine 10 MG Tablet PO SCH (09:19)
[2017-12-24] MEDS: Aspirin 325 MG Tablet PO SCH (09:19)
[2017-12-24] MEDS: Insulin NovoLOG Aspart Correctional Sugar Inj SQ SCH ×4 (09:20→21:59)
[2017-12-24] MEDS: Ferrous Sulfate 325 MG Tablet PO SCH ×2 (14:22→17:11)
[2017-12-24] MEDS: Sodium Chloride 0.9% 2 ML Flush BID IV.FLUSH SCH ×2 (14:22→22:00)
--- NOTE | 2017-12-24 19:46 | P.PNNEU ---
Subjective Subjective Comments: No new c/o Active Medications: Active Medications Acetaminophen (Tylenol) 650 mg PO Q4H PRN PRN Reason: PAIN 1-10 AND/OR FEVER >101F Al Hydroxide/Mg Hydroxide (Milk Of Magnesia Liq) 30 ml PO Q12H PRN PRN Reason: Mild Constipation Aspirin (Aspirin) 325 mg PO DAILY [facility] Last Admin: 12/24/17 09:19 Dose: 325 mg Bisacodyl (Dulcolax Supp) 10 mg RECTAL DAILY PRN PRN Reason: SEVERE CONSITIPATION Dextrose (D50w Vial) 50 ml IV.PUSH UNSCH PRN PRN Reason: PER HYPOGLYCEMIA PROTOCOL Last Admin: 12/22/17 13:35 Dose: 50 ml Docusate Sodium (Colace) 100 mg PO DAILY PRN PRN Reason: Constipation Last Admin: 12/16/17 07:53 Dose: 100 mg Ferrous Sulfate (Ferosul) 325 mg PO BID@1200,1700 [facility] Last Admin: 12/24/17 17:11 Dose: 325 mg Finasteride (Proscar) 5 mg PO [facility] Last Admin: 12/23/17 21:55 Dose: 5 mg Furosemide (Lasix) 20 mg PO DAILY [facility] Last Admin: 12/24/17 09:00 Dose: 20 mg Glucagon (Glucagon Inj) 1 mg OTHER PRN PRN PRN Reason: for Hypoglycemia Protocol [facility] Last Admin: 12/22/17 17:44 Dose: 2.5 mg Hydrochlorothiazide (Hydrodiuril) 25 mg PO DAILY [facility] Last Admin: 12/24/17 09:18 Dose: 25 mg Insulin Aspart (Novolog Insulin Correctional Sugar Inj) 0 unit SQ [facility]; Protocol Last Admin: 12/24/17 17:11 Dose: 3 unit Lactulose (Lactulose Liq) 30 ml PO DAILY PRN PRN Reason: SEVERE CONSITIPATION Loratadine (Claritin) 10 mg PO DAILY [facility] Last Admin: 12/24/17 09:19 Dose: 10 mg Metformin [facility] ([facility]ophage) [facility] Last Admin: 12/22/17 17:44 Dose: 500 mg Metoprolol Succinate (Toprol Xl) 25 mg PO BID [facility] Last Admin: 12/24/17 09:19 Dose: 25 mg Ondansetron HCl (Zofran Inj) 4 mg IV.PUSH Q6H PRN PRN Reason: NAUSEA OR VOMITING Last Admin: 12/12/17 15:44 Dose: 4 mg Pantoprazole Sodium (Protonix) 40 mg PO DAILY [facility] Last Admin: 12/24/17 09:19 Dose: 40 mg Potassium Chloride (Klor-Con 10) 10 meq PO BID [facility] Last Admin: 12/24/17 09:19 Dose: 10 meq Pravastatin Sodium (Pravachol) 40 mg PO QPM [facility] Last Admin: 12/24/17 17:11 Dose: 40 mg Sennosides (Senokot) 17.2 mg PO Q12H PRN PRN Reason: Moderate Constipation Sodium Chloride (Ns Flush) 2 ml IV.FLUSH BID [facility] Last Admin: 12/24/17 14:22 Dose: 2 ml Sodium Chloride (Ns Flush) 2 ml IV.FLUSH PRN PRN PRN Reason: FLUSH AFTER USING IV ACCESS Allergies/Adverse Reactions: Allergies Allergy/AdvReac Type Severity Reaction Status Date / Time Sulfa (Sulfonamide Allergy Blister Verified 12/09/17 10:33 Antibiotics) Physical Exam Vital signs: Vital Signs 12/23/17 20:00 12/23/17 21:00 12/23/17 22:00 Temperature 97.6 F Pulse Rate 87 89 93 H Respiratory Rate 19 15 22 Blood Pressure 135/83 130/80 135/74 Pulse Oximetry 99 99 88 L 12/23/17 23:00 12/24/17 00:00 12/24/17 01:00 Temperature Pulse Rate 89 84 83 Respiratory Rate 17 26 H 21 Blood Pressure 133/83 133/80 Pulse Oximetry 98 12/24/17 01:01 12/24/17 02:00 12/24/17 03:00 Temperature Pulse Rate 85 86 87 Respiratory Rate 23 33 H 33 H Blood Pressure 140/90 151/82 H Pulse Oximetry 97 94 L 12/24/17 03:01 12/24/17 04:00 12/24/17 04:01 Temperature 98.6 F Pulse Rate 83 85 84 Respiratory Rate 24 29 H 22 Blood Pressure 151/78 H 140/80 Pulse Oximetry 97 95 89 L 12/24/17 05:00 12/24/17 05:02 12/24/17 06:00 Temperature Pulse Rate 99 H 88 85 Respiratory Rate 39 H 35 H 31 H Blood Pressure 110/63 111/75 Pulse Oximetry 91 L 91 L 96 12/24/17 07:00 12/24/17 07:01 12/24/17 07:58 Temperature Pulse Rate 90 88 Respiratory Rate 29 H 41 H Blood Pressure 138/74 Pulse Oximetry 95 95 98 12/24/17 08:00 12/24/17 08:01 12/24/17 09:00 Temperature 99.1 F Pulse Rate 123 H 100 H 92 H Respiratory Rate 23 24 28 H Blood Pressure 139/87 Pulse Oximetry 97 97 12/24/17 09:18 12/24/17 10:00 12/24/17 10:01 Temperature Pulse Rate 90 96 H 100 H Respiratory Rate 22 23 22 Blood Pressure 151/64 H 138/71 Pulse Oximetry 12/24/17 11:00 12/24/17 11:01 12/24/17 12:00 Temperature 97.8 F Pulse Rate 77 93 H 99 H Respiratory Rate 21 27 H 33 H Blood Pressure 110/75 114/72 Pulse Oximetry 12/24/17 13:00 12/24/17 14:00 12/24/17 16:00 Temperature 98 F Pulse Rate 83 89 95 H Respiratory Rate 27 H 30 H 20 Blood Pressure 129/73 146/87 H 137/86 Pulse Oximetry 95 Intake & Output 12/24/17 12/24/17 12/25/17 06:59 18:59 06:59 Intake Total 120 / 120 810 / 810 Output Total 300 / 300 450 / 450 Balance -180 / -180 360 / 360 Weight 77 kg Intake: Oral 120 / 120 810 / 810 Output: Urine 0 / 0 100 / 100 Stool 0 / 0 Urine/Stool Mix 0 / 0 Emesis 0 / 0 Urine Amount (Catheter) 300 / 300 350 / 350 Condom 300 / 300 350 / 350 Other: # Voids 3 # Incontinent Voids 3 3 Date of Last Bowel Movement 12/24/17 12/24/17 # Bowel Movements 2 # Incontinent Bowel Movements 2 2 # Emeses 0 - Routine Neurological Exam alert, follows commands PERRL , EOM intact, No facial asymmetry MOTOR 5/5 BUE and BLE Dysmetria BUE - Urinary Catheter Management Condom Cath placed during this visit: no Objective Laboratory Results - last 24 hr 12/23/17 12/24/17 12/24/17 21:25 08:08 12:04 POC Glucose 206 H 170 H 320 H 12/24/17 12/24/17 15:49 16:57 POC Glucose 279 H 211 H Review/Management - Diagnosis (1) CVA (cerebral vascular accident) Code(s): I63.9 - Cerebral infarction, unspecified Status: Acute Current Visit: Yes - Review/Management Plan: 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 unable to anticoagulate at this time due to severe recent epistaxis. Continue asa neuro exam is stable
[2017-12-24] MEDS: Finasteride 5 MG Tablet PO SCH (21:57)
[2017-12-25] MEDS: hydroCHLOROthiazide 25 MG Tablet PO SCH (09:00)
[2017-12-25] MEDS: Sodium Chloride 0.9% 2 ML Flush BID IV.FLUSH SCH ×2 (09:00→21:49)
[2017-12-25] MEDS: Insulin NovoLOG Aspart Correctional Sugar Inj SQ SCH ×4 (10:11→21:59)
[2017-12-25] MEDS: Aspirin 325 MG Tablet PO SCH (10:13)
[2017-12-25] MEDS: Furosemide 20 MG Tablet PO SCH (10:13)
[2017-12-25] MEDS: Loratadine 10 MG Tablet PO SCH (10:14)
[2017-12-25] MEDS: Ferrous Sulfate 325 MG Tablet PO SCH ×2 (12:00→17:16)
--- NOTE | 2017-12-25 15:13 | P.PNIM ---
Subjective Interval history: Patient confused. Mumbling and did not answer questions appropriately. In restraints. Physical Exam Vital signs: Last Vital Signs Temp 98.2 F 12/25/17 12:00 Pulse 62 12/25/17 12:00 Resp 18 12/25/17 12:00 BP 133/62 12/25/17 12:00 Pulse Ox 99 12/25/17 12:00 Intake & Output 12/23/17 12/24/17 12/25/17 12/26/17 06:59 06:59 06:59 06:59 Intake Total 1170 / 1170 1370 / 1370 810 / 810 Output Total 1200 / 1200 850 / 850 450 / 450 Balance -30 / -30 520 / 520 360 / 360 Weight 78 kg 77 kg 76.6 kg Narrative: GENERAL: This is a well-nourished, well-developed patient, in no apparent distress in restraints. CARDIOVASCULAR: Irregular rhythm regular rate with 2 out of 6 systolic ejection murmur RESPIRATORY: Clear to auscultation. Breath sounds equal bilaterally. No wheezes , rales, or rhonchi. GASTROINTESTINAL: Abdomen soft, non-tender, nondistended. Normal active bowel sounds MUSCULOSKELETAL: Extremities without clubbing, cyanosis, or edema. NEURO: Confused oriented to person only not to time situation did not answer my questions appropriately. Spontaneously moves Urinary Catheter Management Condom: Cath placed during this visit: no Results Labs CBC & Chem 7: 12/22/17 04:41 12/22/17 04:41 Procedures Procedures: 12/12/17Angio with embolization of the Left distal IMax territory, performed by IR Dr. Schultz Assessment and Plan (1) CVA (cerebral vascular accident): Code(s): I63.9 - Cerebral infarction, unspecified Status: Acute (2) Epistaxis: Code(s): R04.0 - Epistaxis Status: Acute (3) Anemia due to blood loss: Code(s): D50.0 - Iron deficiency anemia secondary to blood loss (chronic) Status: Acute (4) Anemia, iron deficiency: Code(s): D50.9 - Iron deficiency anemia, unspecified Status: Chronic Plan 82-year-old white male with a history of chronic atrial fibrillation on home Xarelto, coronary artery disease, hypertension presented to the [place] emergency room with spontaneous nosebleed and was transferred here for ENT evaluation During the course of the hospitalization, patient developed Acute infarcts of the left cerebellum and in the left posterior cerebral artery distribution as well as right cerebellum Neurology recommendations appreciated MRI Brain with finding of Left cerebral and cerebellar as well as right cerebellar acute infarcts. Repeat Head CT 12/21/17 with Involving strokes cerebellar hemispheres left greater than right 2D echo with EF 50% Continue ASA, statin. Oral anticoagulation treatment currently contraindicated due to recent episode of epistaxis requiring interventions Continue with PT/OT Metabolic and toxic encephalopathy due to acute CVAstill persists continue close neurological checks Acute spontaneous epistaxis: secondary to Xarelto/aspirin use.- no further episodes, Xarelto was stopped. - Appreciate IR and ENT input appreciated. -Patient is status post left internal maxillary embolization as well as right IMAX embolization due to persistent bleeding. -H&H remain stable Acute on chronic iron deficiency anemia and acute blood loss anemia: due to spontaneous nosebleed. Patient reports long hx of iron deficiency. - S/P PRBC transfusion. -Repeat hemoglobin the morning. 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 -Aspirin was held due to epistaxis; however it has been resumed 12/17 -continue home metoprolol Atrial fibrillation: chronic, rate controlled -home Xarelto on hold due to epistaxis and anemia, continue home metoprolol -follow up with brewing technician as outpatient (has brewing technician in [place]) Diabetes mellitus type 2: chronic HYpoglycemic readings 12/22 -Was previously on Metformin and Glyburide -now on hold - no further hypoglycemic readings -Monitor Accu-checks and cover with SSI Restart once daily metformin DVT prophylaxisbilateral SCDs, no anticoagulation due to bleed/anemia Discharge Planning: Will need senior care facility placement. Progress Note: Quality VTE Deep Vein Thrombosis/Pulmonary Embolism Present on Admission: No _ (1) Anemia, iron deficiency Qualifiers: Iron deficiency anemia type: unspecified iron deficiency Qualified Code(s): D50.9 - Iron deficiency anemia, unspecified (2) CVA (cerebral vascular accident) Qualifiers: CVA mechanism: Laterality of affected vessel: Precerebral and cerebral artery:
[2017-12-25] MEDS: Finasteride 5 MG Tablet PO SCH (21:48)
[2017-12-26] MEDS: Furosemide 20 MG Tablet PO SCH (09:00)
[2017-12-26] MEDS: Sodium Chloride 0.9% 2 ML Flush BID IV.FLUSH SCH ×2 (09:00→22:06)
[2017-12-26] MEDS: hydroCHLOROthiazide 25 MG Tablet PO SCH (09:00)
[2017-12-26] MEDS: Loratadine 10 MG Tablet PO SCH (10:19)
[2017-12-26] MEDS: Aspirin 325 MG Tablet PO SCH (10:19)
[2017-12-26] MEDS: Insulin NovoLOG Aspart Correctional Sugar Inj SQ SCH ×4 (10:20→22:09)
[2017-12-26] MEDS: Ferrous Sulfate 325 MG Tablet PO SCH ×2 (12:00→17:35)
--- NOTE | 2017-12-26 12:13 | P.PNIM ---
Subjective Interval history: Sitting up in more awake and eating breakfast with assistance. Knows that he is in the hospital and that the president is "Trumpy " he is denying any pain. He follows directions Physical Exam Vital signs: Last Vital Signs Temp 98.9 F 12/26/17 08:00 Pulse 81 12/26/17 08:00 Resp 18 12/26/17 08:00 BP 100/58 L 12/26/17 08:00 Pulse Ox 99 12/26/17 08:00 Intake & Output 12/24/17 12/25/17 12/26/17 12/27/17 06:59 06:59 06:59 06:59 Intake Total 1370 / 1370 810 / 810 920 / 920 Output Total 850 / 850 450 / 450 400 / 400 Balance 520 / 520 360 / 360 520 / 520 Weight 77 kg 76.6 kg 72.1 kg Narrative: GENERAL: This is a well-nourished, well-developed patient, in no apparent distress in restraints. CARDIOVASCULAR: Irregular rhythm regular rate with 2 out of 6 systolic ejection murmur RESPIRATORY: Clear to auscultation. Breath sounds equal bilaterally. No wheezes , rales, or rhonchi. GASTROINTESTINAL: Abdomen soft, non-tender, nondistended. Normal active bowel sounds MUSCULOSKELETAL: Extremities without clubbing, cyanosis, or edema. NEURO: Confused but oriented to person and place new it was 2018 and follow directions. Is able to move bilateral upper extremities without any difficulty. Some generalized weakness in the bilateral lower legs. Urinary Catheter Management Condom: Cath placed during this visit: no Results Labs CBC & Chem 7: 12/22/17 04:41 12/22/17 04:41 Procedures Procedures: 12/12/17Angio with embolization of the Left distal IMax territory, performed by IR Dr. Schultz Assessment and Plan (1) CVA (cerebral vascular accident): Code(s): I63.9 - Cerebral infarction, unspecified Status: Acute (2) Epistaxis: Code(s): R04.0 - Epistaxis Status: Acute (3) Anemia due to blood loss: Code(s): D50.0 - Iron deficiency anemia secondary to blood loss (chronic) Status: Acute (4) Anemia, iron deficiency: Code(s): D50.9 - Iron deficiency anemia, unspecified Status: Chronic Plan 82-year-old white male with a history of chronic atrial fibrillation on home Xarelto, coronary artery disease, hypertension presented to the [place] emergency room with spontaneous nosebleed and was transferred here for ENT evaluation During the course of the hospitalization, patient developed Acute infarcts of the left cerebellum and in the left posterior cerebral artery distribution as well as right cerebellum Neurology recommendations appreciated MRI Brain with finding of Left cerebral and cerebellar as well as right cerebellar acute infarcts. Repeat Head CT 12/21/17 with Involving strokes cerebellar hemispheres left greater than right 2D echo with EF 50% Continue ASA, statin. Oral anticoagulation treatment currently contraindicated due to recent episode of epistaxis requiring interventions Continue with PT/OT Metabolic and toxic encephalopathy due to acute CVAclinically improving today. Acute spontaneous epistaxis: secondary to Xarelto/aspirin use.- no further episodes, Xarelto was stopped. - Appreciate IR and ENT input appreciated. -Patient is status post left internal maxillary embolization as well as right IMAX embolization due to persistent bleeding. -H&H remain stable, last hemoglobin 12/22 at 10.0 repeat another hemoglobin the morning. Acute on chronic iron deficiency anemia and acute blood loss anemia: due to spontaneous nosebleed. Patient reports long hx of iron deficiency. - S/P PRBC transfusion. -Repeat hemoglobin the morning. 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 -Aspirin was held due to epistaxis; however it has been resumed 12/17 -continue home metoprolol Atrial fibrillation: chronic, rate controlled -home Xarelto on hold due to epistaxis and anemia, continue home metoprolol -follow up with lepidopterist as outpatient (has lepidopterist in [place]) Diabetes mellitus type 2: chronic HYpoglycemic readings 12/22 - no further hypoglycemic readings -Monitor Accu-checks and cover with SSI Increase metformin to twice daily DVT prophylaxisbilateral SCDs, no anticoagulation due to bleed/anemia Discharge Planning: Will need long term facility placement. Progress Note: Quality VTE Deep Vein Thrombosis/Pulmonary Embolism Present on Admission: No _ (1) CVA (cerebral vascular accident) Qualifiers: CVA mechanism: Precerebral and cerebral artery: Laterality of affected vessel: (2) Anemia, iron deficiency Qualifiers: Iron deficiency anemia type: unspecified iron deficiency Qualified Code(s): D50.9 - Iron deficiency anemia, unspecified
[2017-12-26] MEDS: QUEtiapine 25 MG Tablet PO SCH (22:05)
[2017-12-26] MEDS: Finasteride 5 MG Tablet PO SCH (22:06)
[2017-12-27 06:19] LABS: Baso # (Auto) 0.1 th/mm3 (0.0-0.2); Baso % (Auto) 0.9 % (0.0-2.0); Eos # (Auto) 0.2 th/mm3 (0.0-0.4); Eos % (Auto) 1.6 % (0.0-4.0); Hematocrit 26.7 % (39.0-51.0); Hemoglobin 8.4 gm/dL (13.0-17.0); Lymph # (Auto) 1.1 th/mm3 (1.0-4.8); Lymph % (Auto) 9.9 % (9.0-44.0); Mean Corpuscular HGB Conc 31.4 % (32.0-36.0); Mean Corpuscular Hemoglobin 24.7 pg (27.0-34.0); Mean Corpuscular Volume 78.7 fL (80.0-100.0); Mean Platelet Volume 8.7 fL (7.0-11.0); Neut # (Auto) 8.6 th/mm3 (1.8-7.7); Neut % (Auto) 78.6 % (16.0-70.0); Platelet Count 247 th/mm3 (150-450); Red Blood Count 3.39 mil/mm3 (4.50-5.90); Red Cell Distribution Width 20.6 % (11.6-17.2); White Blood Count 10.9 th/mm3 (4.0-11.0)
[2017-12-27] MEDS: Insulin NovoLOG Aspart Correctional Sugar Inj SQ SCH ×4 (09:18→22:07)
[2017-12-27] MEDS: Furosemide 20 MG Tablet PO SCH (09:19)
[2017-12-27] MEDS: hydroCHLOROthiazide 25 MG Tablet PO SCH (09:19)
[2017-12-27] MEDS: Aspirin 325 MG Tablet PO SCH (09:20)
[2017-12-27] MEDS: Loratadine 10 MG Tablet PO SCH (10:07)
--- NOTE | 2017-12-27 11:27 | P.PNIM ---
Subjective Interval history: He tells me he is not hungry today. He denies any pain. Physical Exam Vital signs: Last Vital Signs Temp 97.5 F L 12/27/17 08:00 Pulse 86 12/27/17 08:00 Resp 20 12/27/17 08:00 BP 136/75 12/27/17 08:00 Pulse Ox 94 L 12/27/17 08:00 Intake & Output 12/25/17 12/26/17 12/27/17 12/28/17 06:59 06:59 06:59 06:59 Intake Total 810 / 810 920 / 920 1260 / 1260 Output Total 450 / 450 400 / 400 Balance 360 / 360 520 / 520 1260 / 1260 Weight 76.6 kg 72.1 kg 72.3 kg Narrative: GENERAL: This is a well-nourished, well-developed patient, in no apparent distress in restraints. CARDIOVASCULAR: Irregular rhythm regular rate with 2 out of 6 systolic ejection murmur RESPIRATORY: Clear to auscultation. Breath sounds equal bilaterally. No wheezes , rales, or rhonchi. GASTROINTESTINAL: Abdomen soft, non-tender, nondistended. Normal active bowel sounds MUSCULOSKELETAL: Extremities without clubbing, cyanosis, or edema. NEURO: Confused but oriented to person and place, did not know the year today, not oriented to situation. Is able to move bilateral upper extremities without any difficulty. Some generalized weakness in the bilateral lower legs. Urinary Catheter Management Condom: Cath placed during this visit: no Results Labs CBC & Chem 7: 12/27/17 04:45 12/22/17 04:41 Procedures Procedures: 12/12/17Angio with embolization of the Left distal IMax territory, performed by ALLEN Schultz Assessment and Plan (1) CVA (cerebral vascular accident): Code(s): I63.9 - Cerebral infarction, unspecified Status: Acute (2) Epistaxis: Code(s): R04.0 - Epistaxis Status: Acute (3) Anemia due to blood loss: Code(s): D50.0 - Iron deficiency anemia secondary to blood loss (chronic) Status: Acute (4) Anemia, iron deficiency: Code(s): D50.9 - Iron deficiency anemia, unspecified Status: Chronic Plan 82-year-old white male with a history of chronic atrial fibrillation on home Xarelto, coronary artery disease, hypertension presented to the [facility] emergency room with spontaneous nosebleed and was transferred here for ENT evaluation During the course of the hospitalization, patient developed Acute infarcts of the left cerebellum and in the left posterior cerebral artery distribution as well as right cerebellum Neurology recommendations appreciated MRI Brain with finding of Left cerebral and cerebellar as well as right cerebellar acute infarcts. Repeat Head CT 12/21/17 with Involving strokes cerebellar hemispheres left greater than right 2D echo with EF 50% Continue ASA, statin. Oral anticoagulation treatment currently contraindicated due to recent episode of epistaxis requiring interventions Continue with PT/OT Metabolic and toxic encephalopathy due to acute CVAclinically improving Acute spontaneous epistaxis: secondary to Xarelto/aspirin use.- no further episodes, Xarelto was stopped. - Appreciate IR and ENT input appreciated. -Patient is status post left internal maxillary embolization as well as right IMAX embolization due to persistent bleeding. -Repeat hemoglobin hematocrit showed some dropped to 8.4. Will repeat levels in the morning. Acute on chronic iron deficiency anemia and acute blood loss anemia: due to spontaneous nosebleed. Patient reports long hx of iron deficiency. - S/P PRBC transfusion. -Hemoglobin shows a drop from the 14th. We will repeat hemoglobin in the morning. 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 -Aspirin was held due to epistaxis; however it has been resumed 12/17 -continue home metoprolol Atrial fibrillation: chronic, rate controlled -home Xarelto on hold due to epistaxis and anemia, continue home metoprolol -follow up with dance artist as outpatient (has dance artist in [place]) Diabetes mellitus type 2: chronic HYpoglycemic readings 12/22 - no further hypoglycemic readings -Monitor Accu-checks and cover with SSI Increase metformin to twice daily DVT prophylaxisbilateral SCDs, no anticoagulation due to bleed/anemia Discussed with yesterday. Explained that we are unable to transfer him to [facility] as only currently waiting for prison facility placement Discharge Planning: Will need prison facility placement. Progress Note: Quality VTE Deep Vein Thrombosis/Pulmonary Embolism Present on Admission: No _ (1) CVA (cerebral vascular accident) Qualifiers: CVA mechanism: Precerebral and cerebral artery: Laterality of affected vessel: (2) Anemia, iron deficiency Qualifiers: Iron deficiency anemia type: unspecified iron deficiency Qualified Code(s): D50.9 - Iron deficiency anemia, unspecified
[2017-12-27] MEDS: Ferrous Sulfate 325 MG Tablet PO SCH ×2 (11:38→17:22)
[2017-12-27] MEDS: Sodium Chloride 0.9% 2 ML Flush BID IV.FLUSH SCH ×2 (17:23→21:36)
[2017-12-27] MEDS: QUEtiapine 25 MG Tablet PO SCH (21:35)
[2017-12-27] MEDS: Finasteride 5 MG Tablet PO SCH (21:35)
[2017-12-28 05:45] LABS: Baso # (Auto) 0.1 th/mm3 (0.0-0.2); Baso % (Auto) 1.2 % (0.0-2.0); Eos # (Auto) 0.2 th/mm3 (0.0-0.4); Eos % (Auto) 2.4 % (0.0-4.0); Hematocrit 27.8 % (39.0-51.0); Hemoglobin 8.7 gm/dL (13.0-17.0); Lymph # (Auto) 0.9 th/mm3 (1.0-4.8); Lymph % (Auto) 10.9 % (9.0-44.0); Mean Corpuscular HGB Conc 31.3 % (32.0-36.0); Mean Corpuscular Hemoglobin 24.4 pg (27.0-34.0); Mean Corpuscular Volume 78.1 fL (80.0-100.0); Mean Platelet Volume 8.7 fL (7.0-11.0); Mono # (Auto) 0.9 th/mm3 (0.0-0.9); Mono % (Auto) 10.9 % (0.0-8.0); Neut # (Auto) 6.2 th/mm3 (1.8-7.7); Neut % (Auto) 74.6 % (16.0-70.0); Platelet Count 270 th/mm3 (150-450); Red Blood Count 3.56 mil/mm3 (4.50-5.90); White Blood Count 8.3 th/mm3 (4.0-11.0)
[2017-12-28] MEDS: Loratadine 10 MG Tablet PO SCH (08:15)
[2017-12-28] MEDS: Furosemide 20 MG Tablet PO SCH (08:15)
[2017-12-28] MEDS: Insulin NovoLOG Aspart Correctional Sugar Inj SQ SCH ×4 (08:16→22:13)
[2017-12-28] MEDS: Aspirin 325 MG Tablet PO SCH (08:16)
[2017-12-28] MEDS: hydroCHLOROthiazide 25 MG Tablet PO SCH (08:16)
[2017-12-28] MEDS: Sodium Chloride 0.9% 2 ML Flush BID IV.FLUSH SCH ×2 (08:17→22:13)
[2017-12-28] MEDS: Ferrous Sulfate 325 MG Tablet PO SCH ×2 (12:37→17:44)
--- NOTE | 2017-12-28 14:55 | P.PNIM ---
Physical Exam Vital signs: Last Vital Signs Temp 97.5 F L 12/28/17 12:00 Pulse 64 12/28/17 12:00 Resp 20 12/28/17 12:00 BP 122/57 L 12/28/17 12:00 Pulse Ox 97 12/28/17 12:00 Intake & Output 12/26/17 12/27/17 12/28/17 12/29/17 06:59 06:59 06:59 06:59 Intake Total 920 / 920 1260 / 1260 60 / 60 Output Total 400 / 400 Balance 520 / 520 1260 / 1260 60 / 60 Weight 72.1 kg 72.3 kg 70.7 kg Narrative: GENERAL: This is a well-nourished, well-developed patient, in no apparent distress in restraints. CARDIOVASCULAR: Irregular rhythm regular rate with 2 out of 6 systolic ejection murmur RESPIRATORY: Clear to auscultation. Breath sounds equal bilaterally. No wheezes , rales, or rhonchi. GASTROINTESTINAL: Abdomen soft, non-tender, nondistended. Normal active bowel sounds MUSCULOSKELETAL: Extremities without clubbing, cyanosis, or edema. NEURO: Confused but oriented to person and place, did not know the year today, not oriented to situation. Is able to move bilateral upper extremities without any difficulty. Some generalized weakness in the bilateral lower legs. Follows directions Urinary Catheter Management Condom: Cath placed during this visit: no Results Labs CBC & Chem 7: 12/28/17 04:46 12/22/17 04:41 Labs: Microbiology 12/28/17 00:13 Stool Stool Occult Blood (RAJI) - Final Hemoccult positive Procedures Procedures: 12/12/17Angio with embolization of the Left distal IMax territory, performed by ALLEN Schultz Assessment and Plan (1) CVA (cerebral vascular accident): Code(s): I63.9 - Cerebral infarction, unspecified Status: Acute (2) Epistaxis: Code(s): R04.0 - Epistaxis Status: Acute (3) Anemia due to blood loss: Code(s): D50.0 - Iron deficiency anemia secondary to blood loss (chronic) Status: Acute (4) Anemia, iron deficiency: Code(s): D50.9 - Iron deficiency anemia, unspecified Status: Chronic Plan 82-year-old white male with a history of chronic atrial fibrillation on home Xarelto, coronary artery disease, hypertension presented to the [place] emergency room with spontaneous nosebleed and was transferred here for ENT evaluation During the course of the hospitalization, patient developed Acute infarcts of the left cerebellum and in the left posterior cerebral artery distribution as well as right cerebellum Neurology recommendations appreciated MRI Brain with finding of Left cerebral and cerebellar as well as right cerebellar acute infarcts. Repeat Head CT 12/21/17 with Involving strokes cerebellar hemispheres left greater than right 2D echo with EF 50% Continue ASA, statin. Oral anticoagulation treatment currently contraindicated due to recent episode of epistaxis requiring interventions Continue with PT/OT Metabolic and toxic encephalopathy due to acute CVAclinically improving Acute spontaneous epistaxis: secondary to Xarelto/aspirin use.- no further episodes, Xarelto was stopped. - Appreciate IR and ENT input appreciated. -Patient is status post left internal maxillary embolization as well as right IMAX embolization due to persistent bleeding. -Yesterday's hemoglobin hematocrit showed some dropped to 8.4. Repeat level 8.7 today Acute on chronic iron deficiency anemia and acute blood loss anemia: due to spontaneous nosebleed. Patient reports long hx of iron deficiency. - S/P PRBC transfusion. -Repeat hemoglobin today shows improvement. 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 -Aspirin was held due to epistaxis; however it has been resumed 12/17 -continue home metoprolol Atrial fibrillation: chronic, rate controlled -home Xarelto on hold due to epistaxis and anemia, continue home metoprolol -follow up with security systems manager as outpatient (has security systems manager in [place]) Diabetes mellitus type 2: chronic HYpoglycemic readings 12/22 - no further hypoglycemic readings -Monitor Accu-checks and cover with SSI Increase metformin to twice daily DVT prophylaxisbilateral SCDs, no anticoagulation due to bleed/anemia Discharge Planning: Likely discharge to long term facility placement if patient continues to be restrained free. Progress Note: Quality VTE Deep Vein Thrombosis/Pulmonary Embolism Present on Admission: No _ (1) CVA (cerebral vascular accident) Qualifiers: CVA mechanism: Precerebral and cerebral artery: Laterality of affected vessel: (2) Anemia, iron deficiency Qualifiers: Iron deficiency anemia type: unspecified iron deficiency Qualified Code(s): D50.9 - Iron deficiency anemia, unspecified
[2017-12-28] MEDS: Finasteride 5 MG Tablet PO SCH (22:07)
[2017-12-28] MEDS: QUEtiapine 25 MG Tablet PO SCH (22:08)
[2017-12-29] MEDS: Insulin NovoLOG Aspart Correctional Sugar Inj SQ SCH ×4 (09:55→21:44)
[2017-12-29] MEDS: Furosemide 20 MG Tablet PO SCH (09:56)
[2017-12-29] MEDS: Aspirin 325 MG Tablet PO SCH (09:56)
[2017-12-29] MEDS: hydroCHLOROthiazide 25 MG Tablet PO SCH (09:56)
[2017-12-29] MEDS: Loratadine 10 MG Tablet PO SCH (09:56)
[2017-12-29] MEDS: Sodium Chloride 0.9% 2 ML Flush BID IV.FLUSH SCH ×2 (09:58→21:35)
--- NOTE | 2017-12-29 11:09 | P.DS ---
DS: Providers Date of admission: 12/12/17 10:13 Primary care physician: UNKNOWN Consults: 12/16/17 23:54 Consult to Neurology Routine Consulting Provider: Jesus Gonzalez Reason for Consultation: Subacute infarcts suspected of the left cerebellum and in the left posterior cerebral artery distribution Notified:: Service Spoke with:: rl Date Notified:: 12/17/17 Time Notified:: 00:47 Ordering Provider: IVETH 12/17/17 00:39 Consult to Rehab Medicine Routine Consulting Provider: Susanne Hanks Reason for Consultation: Stroke patient, assist with Rehab recommendations Notified:: Service Spoke with:: rl Date Notified:: 12/17/17 Time Notified:: 00:50 Ordering Provider: IVETH Anticipated date of discharge: 12/29/17 Brief History from admission: 82-year-old white male with a history of atrial fibrillation on chronic anticoagulation Xarelto, coronary artery disease, hypertension who had spontaneous nosebleed starting at 1:00 yesterday afternoon who went to [place] emergency room and now transferred here in [place] emergency room for evaluation with ENT consult. Since packing was done he still has had on and off nasal bleeding and currently has a rhino pack again. Of note, patient was also diagnosed with iron deficiency anemia and had a comprehensive endoscopy and colonoscopy performed 1 week ago which showed gastritis and colon polyps. He states at that time he did not require transfusion. He denies any heart palpitations nor any dizziness or nor shortness of breath at this time. He denies any nasal pain at this time. He has not taken his home Xarelto since he went to the emergency room. Patient update on day of discharge: Patient had no changes overnight. DS: Diagnosis Discharge Diagnosis (1) CVA (cerebral vascular accident): Status: Acute Diagnosis: Principal (2) Epistaxis: Status: Acute Diagnosis: Principal (3) Anemia due to blood loss: Status: Acute Diagnosis: Secondary (4) Anemia, iron deficiency: Status: Chronic Diagnosis: Secondary (5) Atrial fibrillation with controlled ventricular rate: Status: Chronic Diagnosis: Secondary DS: Summary 82-year-old white male with a history of chronic atrial fibrillation was on home Xarelto who presented to [facility] emergency room for acute epistaxis with continued bleeding despite nasal packing was transferred to [place] emergency department to be evaluated by ENT. Patient was status post left internal maxillary embolization as well as a right IMAX embolization due to persistent bleeding. His chronic anticoagulation Xarelto was discontinued due to the acute hepatitis of an acute bleed. Blood transfusion was given during the hospitalization. Patient also suffered an acute infarct in the left cerebellum and in the left posterior cerebral cerebral artery distribution as well as the right cerebellum and oral anticoagulation could not be restarted due to recent episode of epistaxis and was started on full dose aspirin 325 mg p.o. daily along with statin. Neurology service, Dr. Gonzalez evaluated the patient during the hospitalization. Due to his acute stroke patient had metabolic and toxic encephalopathy but did clinically improve during the hospitalization. PT, OT, speech therapy was initiated. His oral hypoglycemia was initially held due to inconsistent p.o. intake and having hypoglycemic episodes. Only home metformin was restarted. At this time, patient had gained maximum benefit from hospitalization and is ready to be transitioned to longterm facility in [place] for continued rehab efforts. Time Spent with Patient Total time spent providing and/or coordinating discharge services: Greater than 30 minutes Quality: VTE Deep Vein Thrombosis/Pulmonary Embolism Present on Admission: No Exam Narrative Exam Narrative: GENERAL: This is a well-nourished, well-developed patient, in no apparent distress. CARDIOVASCULAR: Irregular rate and rhythm RESPIRATORY: Clear to auscultation. Breath sounds equal bilaterally. No wheezes , rales, or rhonchi. GASTROINTESTINAL: Abdomen soft, non-tender, nondistended. Normal active bowel sounds MUSCULOSKELETAL: Extremities without clubbing, cyanosis, trace edema NEURO: Confused and is only oriented to place and person but not to time or situation, told me he enjoyed his breakfast this morning, follow directions was able to move bilateral upper extremities and lower extremities Results Procedures completed during hospitalization: 12/12/17Angio with embolization of the Left distal IMax territory, performed by ALLEN Schultz Labs on day of discharge: Labs from last 24 hours 12/29/17 12/28/17 12/28/17 07:55 22:09 16:07 POC Glucose 190 H 216 H 204 H 12/28/17 12:22 POC Glucose 283 H Impressions ITS Impressions Cerebral Angiography 12/12/17 00:00 CONCLUSION: 1. Successful embolization of the vascular bed supplying the posterior nasopharynx. The patient tolerated the procedure well. At the conclusion of the procedure there was no evidence of active bleeding. Head CTA 12/18/17 00:00 CONCLUSION: 1. Negative CTA Head. . Neck CTA 12/18/17 00:00 CONCLUSION: 1. Negative CTA Carotid. Head MRI 12/18/17 00:40 CONCLUSION: 1. Left cerebral and cerebellar as well as right cerebellar acute infarcts. 2. Atrophy and white matter disease. Head MRA 12/18/17 00:40 CONCLUSION: 1. Negative MRA [place] ([place]) non contrast. Head CT 12/22/17 00:00 CONCLUSION: 1. Involving strokes cerebellar hemispheres left greater than right. 2. No acute hemorrhage or mass effect. 3. Atrophy and chronic small vessel ischemic changes again noted. . Discharge Plan Discharge Disposition Patient Disposition: 03 Discharge to SNF Discharge Condition Condition: Stable Discharge Order Discharge Orders: Discharge Order (Routine); Ordered 12/29/17 Ordered By: Claire Valadez Discharge Details Anticipated Discharge Date: 12/29/17 Physicians Team Primary Care Provider: UNKNOWN, Attending Provider: Claire Valadez Other Providers: Jesus Gonzalez ; Susanne Hanks Rxs /Orders / Referrals /Forms Prescriptions: New metformin [Glucophage] 500 mg Tablet 500 mg PO BIDPC Qty: 60 RF: 0 aspirin 325 mg Tablet 325 mg PO DAILY Qty: 30 RF: 0 Continue pravastatin 40 mg Tablet 40 mg PO QPM RF: 0 cyanocobalamin (vitamin B-12) [Vitamin B-12] 1,000 mcg Tablet 1,000 mcg PO DAILY RF: 0 potassium chloride [Klor-Con 10] 10 mEq Tablet Extended Release 10 meq PO BID RF: 0 omeprazole 40 mg Capsule,Delayed Release(Dr/Ec) 40 mg PO QAM RF: 0 nitroglycerin 0.4 mg Tablet, Sublingual 0.4 mg SUBLINGUAL Q5-15M PRN (Reason: Chest Pain) RF: 0 hydrochlorothiazide 25 mg Tablet 25 mg PO QAM RF: 0 metoprolol succinate 25 mg Tablet Extended Release 24 Hr 25 mg PO BID RF: 0 fluticasone [Flonase Allergy Relief] 50 mcg/actuation [place],Suspension 2 spray INTRANASAL HS RF: 0 loratadine [Claritin] 10 mg Tablet 10 mg PO QAM RF: 0 dutasteride [Avodart] 0.5 mg Capsule 0.5 mg PO HS RF: 0 axqhllil-pgg-PV-lycopen-lutein [Centrum Silver] 0.4-300-250 mg-mcg-mcg Tablet 1 tab PO QPM RF: 0 docusate sodium [Colace] 100 mg Capsule 100 mg PO DAILY PRN (Reason: Constipation) RF: 0 furosemide [Lasix] 20 mg Tablet 20 mg PO DAILY RF: 0 Discontinued aspirin 81 mg Tablet,Delayed Release (Dr/Ec) 81 mg PO QAM RF: 0 glyburide-metformin 2.5-500 mg Tablet 1 tab PO BID RF: 0 silodosin [Rapaflo] 4 mg Capsule 4 mg PO DAILY PRN (Reason: Urinary Retention) RF: 0 rivaroxaban [Xarelto] 15 mg Tablet 15 mg PO QPM RF: 0 inulin 2 gram Tablet,Chewable 2 tab PO HS RF: 0 temazepam [Restoril] 15 mg Capsule 15 mg PO HS PRN (Reason: Insomnia) RF: 0 Referrals: UNKNOWN, [Primary Care Provider] - See Instructions ( Follow-up with physician at the longterm facility.) Post Discharge Care Plan Care Plan Goals: Discharge Care Plan Goals for Stroke You have been diagnosed with or have a high risk for a stroke, or a TIA ( transient ischemic attack). During a stroke, blood stops flowing to part of your brain. This can damage areas in the brain that control other parts of the body. Symptoms after a stroke depend on which part of the brain has been affected. Directions to Meet your Goals: 1. Diet: Based on your situation, your doctor will direct you to make changes in your diet. Some of the changes may include: * Reducing the amount of fat and cholesterol you eat * Don't add salt to your food. * Eat more fresh vegetables and fruits * Eat more lean proteins, such as fish, poultry, and beans and peas (legumes). Cut down on red meat & processed meats * Use low-fat dairy products * Limit vegetable oils and nut oils. Avoid any food that has hydrogenated listed in its ingredients. * Limit sweets and processed foods such as chips, cookies, and baked goods 2. Prevent Falls/Injury: You may be at risk of falling. Activity: * Keep your surrounding clutter free to help you walk more easily. * Your doctor and therapist may decide if you need an assistive device to walk safely. Shower/Bathing: * Test the water temperature with a hand or foot that was not affected by the stroke. * Use grab bars, a shower seat, a hand-held showerhead, and a long-handled brush. Getting Dressed: * Dress while sitting, starting with the affected side or limb. * Wear shirts that pull easily over your head. Wear pants or skirts with elastic waistbands. * Use zippers with loops attached to the pull tabs. 3. Lifestyle Modifications: * Take your medicines exactly as prescribed. Dont skip doses. * Begin an exercise program as directed by your doctor. You can benefit from simple activities such as walking or gardening. * Limit how much alcohol you drink. Men should have no more than 2 alcoholic drinks a day. Women should limit themselves to 1 alcoholic drink per day. * Know your cholesterol level. Follow your doctor's recommendations about how to keep cholesterol under control. * If you are a smoker, quit now. Joining a stop-smoking program will improve your chances of success. Ask your doctor for medicines or other methods to help you quit. * Learn stress management techniques to help you deal with stress in your home and work life. 4. Stroke Risk Factors: Once youve had a stroke, youre at greater risk for another one. Listed below are some other factors that can increase your risk for a stroke: * High blood pressure and High Cholesterol * Cigarette or cigar smoking * Diabetes * Carotid or other artery disease * Atrial fibrillation, atrial flutter, or other heart disease * Not being physically active * Obesity * Certain blood disorders such as sickle cell anemia * Drinking too much alcohol * Abusing street drugs * Race * Gender * Family history of stroke * Diet high in salty, fried, or greasy foods 5. Follow-up: * Keep your medical appointments. Close follow-up is important to stroke rehabilitation and recovery. * Some medicines require blood tests to check for progress or problems. Keep follow-up appointments for any blood tests ordered by your providers. Call 911 right away if you have: Weakness, tingling, or loss of feeling on one side of your face or body Sudden double vision or trouble seeing in one or both eyes Sudden trouble talking or slurred speech Trouble understanding others Sudden, severe headache Dizziness, loss of balance, or a sense of falling Blackouts or seizures F.A.S.T. is an easy way to remember the signs of stroke. When you see these signs, you know that you need to call 911 fast. F.A.S.T. stands for: * F is for face drooping. One side of the face is drooping or numb. When the person smiles, the smile is uneven. * A is for arm weakness. One arm is weak or numb. When the person lifts both arms at the same time, one arm may drift downward. * S is for speech difficulty. You may notice slurred speech or trouble speaking. The person can't repeat a simple sentence correctly when asked. * T is for time to call 911. If someone shows any of these symptoms, even if they go away, call 911 right away. Make note of the time the symptoms first appeared. Status ED Status: Left Department
[2017-12-29] MEDS: Ferrous Sulfate 325 MG Tablet PO SCH ×2 (13:43→17:35)
--- NOTE | 2017-12-29 15:08 | P.PNIM ---
Subjective Interval history: He reports he finished his breakfast. Pleasantly confused this and has no complaints overnight. Physical Exam Vital signs: Last Vital Signs Temp 98.0 F 12/29/17 12:00 Pulse 78 12/29/17 12:00 Resp 20 12/29/17 12:00 BP 142/82 H 12/29/17 12:00 Pulse Ox 93 L 12/29/17 12:00 Intake & Output 12/27/17 12/28/17 12/29/17 12/30/17 06:59 06:59 06:59 06:59 Intake Total 1260 / 1260 60 / 60 480 / 480 Balance 1260 / 1260 60 / 60 480 / 480 Weight 72.3 kg 70.7 kg 72.2 kg Narrative: GENERAL: This is a well-nourished, well-developed patient, in no apparent distress in restraints. CARDIOVASCULAR: Irregular rhythm regular rate with 2 out of 6 systolic ejection murmur RESPIRATORY: Clear to auscultation. Breath sounds equal bilaterally. No wheezes , rales, or rhonchi. GASTROINTESTINAL: Abdomen soft, non-tender, nondistended. Normal active bowel sounds MUSCULOSKELETAL: Extremities without clubbing, cyanosis, or edema. NEURO: Confused but oriented to person and place, did not know the year today, not oriented to situation. Is able to move bilateral upper extremities without any difficulty. Some generalized weakness in the bilateral lower legs. Follows directions Urinary Catheter Management Condom: Cath placed during this visit: no Results Labs CBC & Chem 7: 12/28/17 04:46 12/22/17 04:41 Procedures Procedures: 12/12/17Angio with embolization of the Left distal IMax territory, performed by ALLEN Schultz Assessment and Plan (1) CVA (cerebral vascular accident): Code(s): I63.9 - Cerebral infarction, unspecified Status: Acute (2) Epistaxis: Code(s): R04.0 - Epistaxis Status: Acute (3) Anemia due to blood loss: Code(s): D50.0 - Iron deficiency anemia secondary to blood loss (chronic) Status: Acute (4) Anemia, iron deficiency: Code(s): D50.9 - Iron deficiency anemia, unspecified Status: Chronic (5) Atrial fibrillation with controlled ventricular rate: Code(s): I48.91 - Unspecified atrial fibrillation Status: Chronic Plan 82-year-old white male with a history of chronic atrial fibrillation on home Xarelto, coronary artery disease, hypertension presented to the [facility] emergency room with spontaneous nosebleed and was transferred here for ENT evaluation During the course of the hospitalization, patient developed Acute infarcts of the left cerebellum and in the left posterior cerebral artery distribution as well as right cerebellum Neurology recommendations appreciated MRI Brain with finding of Left cerebral and cerebellar as well as right cerebellar acute infarcts. Repeat Head CT 12/21/17 with Involving strokes cerebellar hemispheres left greater than right 2D echo with EF 50% Continue ASA, statin. Oral anticoagulation treatment currently contraindicated due to recent episode of epistaxis requiring interventions Continue with PT/OT Metabolic and toxic encephalopathy due to acute CVAclinically improving Acute spontaneous epistaxis: secondary to Xarelto/aspirin use.- no further episodes, Xarelto was stopped. - Appreciate IR and ENT input appreciated. -Patient is status post left internal maxillary embolization as well as right IMAX embolization due to persistent bleeding. -12/27 hemoglobin hematocrit showed some dropped to 8.4. Repeat level 12/28 shows stability at 8.7 Acute on chronic iron deficiency anemia and acute blood loss anemia: due to spontaneous nosebleed. Patient reports long hx of iron deficiency. - S/P PRBC transfusion. -Repeat hemoglobin 12/28 shows improvement. 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 -Aspirin was held due to epistaxis; however it has been resumed 12/17 -continue home metoprolol Atrial fibrillation: chronic, rate controlled -home Xarelto on hold due to epistaxis and anemia, continue home metoprolol -follow up with specimen accessioner as outpatient (has specimen accessioner in [place]) Diabetes mellitus type 2: chronic HYpoglycemic readings 12/22 - no further hypoglycemic readings -Monitor Accu-checks and cover with SSI Increase metformin to twice daily DVT prophylaxisbilateral SCDs, no anticoagulation due to bleed/anemia Discharge Planning: Informed by case management the senior care facility in [place] initially accepting him now is declining him; currently patient is stable for senior care facility placement. Progress Note: Quality VTE Deep Vein Thrombosis/Pulmonary Embolism Present on Admission: No _ (1) CVA (cerebral vascular accident) Qualifiers: CVA mechanism: Precerebral and cerebral artery: Laterality of affected vessel: (2) Anemia, iron deficiency Qualifiers: Iron deficiency anemia type: unspecified iron deficiency Qualified Code(s): D50.9 - Iron deficiency anemia, unspecified
[2017-12-29] MEDS: QUEtiapine 25 MG Tablet PO SCH (21:35)
[2017-12-29] MEDS: Finasteride 5 MG Tablet PO SCH (21:35)
--- NOTE | 2017-12-30 01:37 | CT ---
EXAM DATE: 12/30/2017 1:29 AM EST AGE/SEX: 82 years / Male INDICATIONS: Trauma, fall. Hematoma to right side of forehead. CLINICAL DATA: This is the patient's initial encounter. Patient reports that signs and symptoms have been present for 1 day and indicates a pain score of 4/10. MEDICAL/SURGICAL HISTORY: Hypertension. Dementia. CABG. RADIATION DOSE: 56.35 CTDI (mGy) [place] [facility] [place]. . TECHNIQUE: CT of the head without contrast. Using automated exposure control and adjustment of the mA and/or kV according to patient size, radiation dose was kept as low as reasonably achievable to ob tain optimal diagnostic quality images. DICOM format image data is available electronically for revi ew and comparison. FINDINGS: Bilateral cerebellar hemisphere infarcts seen on the prior CT of 12/22/2017 are again seen. There is mild heterogeneous hyperdensity within the left cerebellar infarct indicating some interval developme nt of hemorrhagic products. Similar appearance is also seen in the left posterior parietal/occipital infarct was also present on the prior study but now has heterogeneous hyperdensity indicating interva l development of a hemorrhagic component. Mild associated mass effect. No midline shift. Right sided frontal/preorbital soft tissue swelling/hematoma. No evidence of fracture in this region. No extra-axial fluid collection. No acute intracranial hemorrhage outside of the areas of previously known infarcts. CONCLUSION: 1. Subacute bilateral cerebellar hemisphere infarcts and left posterior cerebral hemisphere infarct again seen. There has been some interval development of hemorrhagic change within the left cerebellar infarct and left posterior cerebral infarct when compared to the prior CT 12/22/2017. Mild mass effe ct but no midline shift. 2. No other acute intracranial hemorrhage seen. 3. Right-sided frontal scalp/periorbital scalp hematoma. . Electronically signed by: Ousmane Arnold MD 12/30/2017 1:36 AM EST
[2017-12-30] MEDS: Furosemide 20 MG Tablet PO SCH (09:29)
[2017-12-30] MEDS: Aspirin 325 MG Tablet PO SCH (09:29)
[2017-12-30] MEDS: Loratadine 10 MG Tablet PO SCH (09:30)
[2017-12-30] MEDS: hydroCHLOROthiazide 25 MG Tablet PO SCH (09:30)
[2017-12-30] MEDS: Insulin NovoLOG Aspart Correctional Sugar Inj SQ SCH ×4 (11:32→23:40)
--- NOTE | 2017-12-30 16:18 | P.PNIM ---
Subjective Interval history: Patient had a fell last night and sustain right periorbital/scalp hematoma. He remains confused and combative requiring restraints this morning. Physical Exam Vital signs: Vital Signs 12/29/17 20:00 12/30/17 00:00 12/30/17 00:06 Temperature 97.6 F 97.5 F L 97.5 F L Pulse Rate 68 92 H 92 H Respiratory Rate 18 18 20 Blood Pressure 141/83 H 179/100 H 179/100 H Pulse Oximetry 96 98 98 12/30/17 00:30 12/30/17 02:01 12/30/17 03:30 Temperature 98.4 F 97.9 F 97.5 F L Pulse Rate 92 H 85 80 Respiratory Rate 20 20 20 Blood Pressure 153/86 H 140/87 140/79 Pulse Oximetry 98 99 95 12/30/17 04:00 12/30/17 08:00 12/30/17 12:00 Temperature 97.8 F 97.9 F 98.0 F Pulse Rate 77 74 68 Respiratory Rate 18 22 16 Blood Pressure 151/79 H 174/94 H 164/68 H Pulse Oximetry 96 99 96 Intake & Output 12/29/17 12/30/17 12/30/17 18:59 06:59 18:59 Weight 70.9 kg Other: # Voids 3 # Incontinent Voids 2 1 # Urine Diapers 3 Date of Last Bowel Movement 12/28/17 12/29/17 12/29/17 Narrative: GENERAL: Elderly male in no apparent distress in restraints. Right eye swelling and ecchymoses. CARDIOVASCULAR: Irregular rhythm regular rate with 2 out of 6 systolic ejection murmur RESPIRATORY: Clear to auscultation. Breath sounds equal bilaterally. No wheezes , rales, or rhonchi. GASTROINTESTINAL: Abdomen soft, non-tender, nondistended. Normal active bowel sounds MUSCULOSKELETAL: Extremities without clubbing, cyanosis, or edema. NEURO: Confused and restless. Follow some commands. Move all extremities spontaneously. - Urinary Catheter Management Condom Cath placed during this visit: no Results - Labs CBC & Chem 7: 12/28/17 04:46 12/22/17 04:41 Laboratory Results - last 24 hr 12/29/17 12/29/17 12/29/17 16:23 21:37 23:53 POC Glucose 269 H 361 H 99 12/30/17 12/30/17 07:46 12:50 POC Glucose 142 H 192 H - Imaging Impressions Head CT 12/30/17 00:06 CONCLUSION: 1. Subacute bilateral cerebellar hemisphere infarcts and left posterior cerebral hemisphere infarct again seen. There has been some interval development of hemorrhagic change within the left cerebellar infarct and left posterior cerebral infarct when compared to the prior CT 12/22/2017. Mild mass effect but no midline shift. 2. No other acute intracranial hemorrhage seen. 3. Right-sided frontal scalp/periorbital scalp hematoma. . - Procedures 12/12/17Angio with embolization of the Left distal IMax territory, performed by IR Dr. Schultz Assessment and Plan - Assessment (1) CVA (cerebral vascular accident) Code(s): I63.9 - Cerebral infarction, unspecified Status: Acute (2) Epistaxis Code(s): R04.0 - Epistaxis Status: Acute (3) Anemia due to blood loss Code(s): D50.0 - Iron deficiency anemia secondary to blood loss (chronic) Status: Acute (4) Anemia, iron deficiency Code(s): D50.9 - Iron deficiency anemia, unspecified Status: Chronic (5) Atrial fibrillation with controlled ventricular rate Code(s): I48.91 - Unspecified atrial fibrillation Status: Chronic - Plan 82-year-old white male with a history of chronic atrial fibrillation on home Xarelto, coronary artery disease, hypertension presented to the [facility] emergency room with spontaneous nosebleed and was transferred here for ENT evaluation During the course of the hospitalization, patient developed Acute infarcts of the left cerebellum and in the left posterior cerebral artery distribution as well as right cerebellum Neurology recommendations appreciated MRI Brain with finding of Left cerebral and cerebellar as well as right cerebellar acute infarcts. Repeat Head CT 12/21/17 with Involving strokes cerebellar hemispheres left greater than right 2D echo with EF 50% Continue ASA, statin. Oral anticoagulation treatment currently contraindicated due to recent episode of epistaxis requiring interventions Continue with PT/OT Repeat CT on 12/30 after a fall revealed evolving stroke with hemorrhagic components. Appreciate Neurologist input. Continue to hold anticoagulation. Change to Aspirin 81 mg Metabolic and toxic encephalopathy due to acute CVA Appear to be worst today. Continue to monitor. - Increase Seroquel to 25 mg HS to help with agitation symptoms. Acute spontaneous epistaxis: secondary to Xarelto/aspirin use.- no further episodes, Xarelto was stopped. - Appreciate IR and ENT input appreciated. -Patient is status post left internal maxillary embolization as well as right IMAX embolization due to persistent bleeding. -12/27 hemoglobin hematocrit showed some dropped to 8.4. Repeat level 12/28 shows stability at 8.7 Acute on chronic iron deficiency anemia and acute blood loss anemia: due to spontaneous nosebleed. Patient reports long hx of iron deficiency. - S/P PRBC transfusion. -Repeat hemoglobin shows improvement. 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 -Aspirin was held due to epistaxis; resumed. Decrease to 81 mg -continue home metoprolol Atrial fibrillation: chronic, rate controlled -home Xarelto on hold due to epistaxis and anemia, continue home metoprolol -follow up with tinsmith apprentice as outpatient (has tinsmith apprentice in [place]) Diabetes mellitus type 2: chronic HYpoglycemic readings 12/22 - no further hypoglycemic readings -Monitor Accu-checks and cover with SSI metformin to twice daily DVT prophylaxisbilateral SCDs, no anticoagulation due to bleed/anemia Discharge Planning: Continue to monitor. Wean off restraints. (4) Anemia, iron deficiency Qualifiers: Iron deficiency anemia type: unspecified iron deficiency Qualified Code(s): D50.9 - Iron deficiency anemia, unspecified
[2017-12-30] MEDS: Ferrous Sulfate 325 MG Tablet PO SCH ×2 (16:49→17:24)
[2017-12-30] MEDS: Sodium Chloride 0.9% 2 ML Flush BID IV.FLUSH SCH ×2 (17:27→22:39)
--- NOTE | 2017-12-30 19:21 | P.PNNEU ---
Subjective Subjective Comments: hx afib apparently and fell last pm ct shows hemorrhagic transpomation with some occult blood left occipital > cbllm Active Medications: Active Medications Acetaminophen (Tylenol) 650 mg PO Q4H PRN PRN Reason: PAIN 1-10 AND/OR FEVER >101F Al Hydroxide/Mg Hydroxide (Milk Of Magnesia Liq) 30 ml PO Q12H PRN PRN Reason: Mild Constipation Aspirin (Aspirin) 325 mg PO DAILY [facility] Last Admin: 12/30/17 09:29 Dose: 325 mg Bisacodyl (Dulcolax Supp) 10 mg RECTAL DAILY PRN PRN Reason: SEVERE CONSITIPATION Dextrose (D50w Vial) 50 ml IV.PUSH UNSCH PRN PRN Reason: PER HYPOGLYCEMIA PROTOCOL Last Admin: 12/22/17 13:35 Dose: 50 ml Docusate Sodium (Colace) 100 mg PO DAILY PRN PRN Reason: Constipation Last Admin: 12/16/17 07:53 Dose: 100 mg Ferrous Sulfate (Ferosul) 325 mg PO BID@1200,1700 [facility] Last Admin: 12/30/17 17:24 Dose: 325 mg Finasteride (Proscar) 5 mg PO [facility] Last Admin: 12/29/17 21:35 Dose: 5 mg Furosemide (Lasix) 20 mg PO DAILY [facility] Last Admin: 12/30/17 09:29 Dose: 20 mg Glucagon (Glucagon Inj) 1 mg OTHER PRN PRN PRN Reason: for Hypoglycemia Protocol [facility] Last Admin: 12/22/17 17:44 Dose: 2.5 mg Hydrochlorothiazide (Hydrodiuril) 25 mg PO DAILY [facility] Last Admin: 12/30/17 09:30 Dose: 25 mg Insulin Aspart (Novolog Insulin Correctional Sugar Inj) 0 unit SQ ACHS [facility]; Protocol Last Admin: 12/30/17 18:28 Dose: 3 unit Lactulose (Lactulose Liq) 30 ml PO DAILY PRN PRN Reason: SEVERE CONSITIPATION Loratadine (Claritin) 10 mg PO DAILY [facility] Last Admin: 12/30/17 09:30 Dose: 10 mg Metformin HCl (Glucophage) 500 mg PO BIDPC [facility] Last Admin: 12/30/17 17:27 Dose: 500 mg Metoprolol Succinate (Toprol Xl) 25 mg PO BID [facility] Last Admin: 12/30/17 09:29 Dose: 25 mg Ondansetron HCl (Zofran Inj) 4 mg IV.PUSH Q6H PRN PRN Reason: NAUSEA OR VOMITING Last Admin: 12/12/17 15:44 Dose: 4 mg Pantoprazole Sodium (Protonix) 40 mg PO DAILY [facility] Last Admin: 12/30/17 09:29 Dose: 40 mg Potassium Chloride (Klor-Con 10) 10 meq PO BID [facility] Last Admin: 12/30/17 09:29 Dose: 10 meq Pravastatin Sodium (Pravachol) 40 mg PO QPM [facility] Last Admin: 12/30/17 18:33 Dose: 40 mg Quetiapine Fumarate (Seroquel) 12.5 mg PO HS [facility] Last Admin: 12/29/17 21:35 Dose: 12.5 mg Sennosides (Senokot) 17.2 mg PO Q12H PRN PRN Reason: Moderate Constipation Sodium Chloride (Ns Flush) 2 ml IV.FLUSH BID [facility] Last Admin: 12/30/17 17:27 Dose: 2 ml Sodium Chloride (Ns Flush) 2 ml IV.FLUSH PRN PRN PRN Reason: FLUSH AFTER USING IV ACCESS Allergies/Adverse Reactions: Allergies Allergy/AdvReac Type Severity Reaction Status Date / Time Sulfa (Sulfonamide Allergy Blister Verified 12/09/17 10:33 Antibiotics) Physical Exam Vital signs: Vital Signs 12/29/17 20:00 12/30/17 00:00 12/30/17 00:06 Temperature 97.6 F 97.5 F L 97.5 F L Pulse Rate 68 92 H 92 H Respiratory Rate 18 18 20 Blood Pressure 141/83 H 179/100 H 179/100 H Pulse Oximetry 96 98 98 12/30/17 00:30 12/30/17 02:01 12/30/17 03:30 Temperature 98.4 F 97.9 F 97.5 F L Pulse Rate 92 H 85 80 Respiratory Rate 20 20 20 Blood Pressure 153/86 H 140/87 140/79 Pulse Oximetry 98 99 95 12/30/17 04:00 12/30/17 08:00 12/30/17 12:00 Temperature 97.8 F 97.9 F 98.0 F Pulse Rate 77 74 68 Respiratory Rate 18 22 16 Blood Pressure 151/79 H 174/94 H 164/68 H Pulse Oximetry 96 99 96 12/30/17 16:00 Temperature 98.2 F Pulse Rate 78 Respiratory Rate 18 Blood Pressure 168/98 H Pulse Oximetry 99 Intake & Output 12/30/17 12/30/17 12/31/17 06:59 18:59 06:59 Weight 70.9 kg Other: # Incontinent Voids 1 Date of Last Bowel Movement 12/29/17 12/29/17 Narrative: awakens moves all 4 ext says hello r eye ball nl but somewhat slightly swollen shut - Urinary Catheter Management Condom Cath placed during this visit: no Objective Laboratory Results - last 24 hr 12/29/17 12/29/17 12/30/17 21:37 23:53 07:46 POC Glucose 361 H 99 142 H 12/30/17 12/30/17 12:50 17:54 POC Glucose 192 H 215 H Review/Management - Diagnosis (1) CVA (cerebral vascular accident) Code(s): I63.9 - Cerebral infarction, unspecified Status: Acute Current Visit: Yes - Review/Management Plan: 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 unable to anticoagulate at this time due to severe recent epistaxis. Continue asa neuro exam is stable 12/30/17 would continue to hold anticoag with ct finding and change to 81mg asa notify dr velasco on wednesday to fu his case for anticoag restart timing
[2017-12-30] MEDS: QUEtiapine 25 MG Tablet PO SCH (22:38)
[2017-12-30] MEDS: Finasteride 5 MG Tablet PO SCH (22:38)
[2017-12-31 08:06] LABS: Hematocrit 26.5 % (39.0-51.0); Hemoglobin 8.7 gm/dL (13.0-17.0); Mean Corpuscular Hemoglobin 25.3 pg (27.0-34.0); Mean Corpuscular Volume 76.7 fL (80.0-100.0); Mean Platelet Volume 8.3 fL (7.0-11.0); Platelet Count 256 th/mm3 (150-450); Red Blood Count 3.45 mil/mm3 (4.50-5.90); Red Cell Distribution Width 20.5 % (11.6-17.2); White Blood Count 6.8 th/mm3 (4.0-11.0)
[2017-12-31 08:28] LABS: Calcium 9.7 mg/dL (8.5-10.1); Carbon Dioxide 32.5 meq/L (21.0-32.0); Potassium 3.5 meq/L (3.5-5.1)
[2017-12-31] MEDS: Insulin NovoLOG Aspart Correctional Sugar Inj SQ SCH ×4 (09:04→21:49)
[2017-12-31] MEDS: hydroCHLOROthiazide 25 MG Tablet PO SCH (09:07)
[2017-12-31] MEDS: Loratadine 10 MG Tablet PO SCH (09:07)
[2017-12-31] MEDS: Sodium Chloride 0.9% 2 ML Flush BID IV.FLUSH SCH ×2 (09:07→21:50)
[2017-12-31] MEDS: Furosemide 20 MG Tablet PO SCH (09:07)
--- NOTE | 2017-12-31 12:47 | P.PNIM ---
Subjective Interval history: DW RN, patient is expectorating some blood clots and fresh bight red blood. Blood is also noted on the right nostril. No vomiting. Physical Exam Vital signs: Vital Signs 12/30/17 16:00 12/30/17 20:00 12/31/17 00:00 Temperature 98.2 F 98.1 F 98.1 F Pulse Rate 78 84 93 H Respiratory Rate 18 20 20 Blood Pressure 168/98 H 171/98 H 137/68 Pulse Oximetry 99 100 98 12/31/17 04:00 12/31/17 08:00 Temperature 97.5 F L 97.5 F L Pulse Rate 80 80 Respiratory Rate 20 20 Blood Pressure 138/86 144/92 H Pulse Oximetry 99 93 L Intake & Output 12/30/17 12/31/17 12/31/17 18:59 06:59 18:59 Intake Total 240 / 240 120 / 120 237 / 237 Balance 240 / 240 120 / 120 237 / 237 Weight 80 kg Intake: Oral 240 / 240 120 / 120 Oral Supplement 237 / 237 Other: Date of Last Bowel Movement 12/29/17 12/29/17 Narrative: GENERAL: Elderly male in no acute distress. Right eye swelling and ecchymoses. HEENT: There is fresh blood on the right nostril. Fresh blood also noted in the oropharynx. CARDIOVASCULAR: Irregular rhythm regular rate with 2 out of 6 systolic ejection murmur RESPIRATORY: Clear to auscultation. Breath sounds equal bilaterally. No wheezes , rales, or rhonchi. GASTROINTESTINAL: Abdomen soft, non-tender, nondistended. Normal active bowel sounds MUSCULOSKELETAL: Extremities without clubbing, cyanosis, or edema. NEURO: Confused but follow some commands. Move all extremities spontaneously. Generalized weakness. - Urinary Catheter Management Condom Cath placed during this visit: no Results - Labs CBC & Chem 7: 12/31/17 07:41 12/31/17 07:41 Laboratory Results - last 24 hr 12/30/17 12/30/17 12/30/17 12:50 17:54 23:36 WBC RBC Hgb Hct MCV MCH MCHC RDW Plt Count MPV Sodium Potassium Chloride Carbon Dioxide Anion Gap BUN Creatinine Estimated GFR POC Glucose 192 H 215 H 209 H Random Glucose Calcium 12/31/17 12/31/17 12/31/17 07:41 07:41 09:01 WBC 6.8 RBC 3.45 L Hgb 8.7 L Hct 26.5 L MCV 76.7 L MCH 25.3 L MCHC 33.0 RDW 20.5 H Plt Count 256 MPV 8.3 Sodium 140 Potassium 3.5 Chloride 102 Carbon Dioxide 32.5 H Anion Gap 6 BUN 35 H Creatinine 0.97 Estimated GFR 74 L POC Glucose 173 H Random Glucose 165 H Calcium 9.7 12/31/17 11:39 WBC RBC Hgb Hct MCV MCH MCHC RDW Plt Count MPV Sodium Potassium Chloride Carbon Dioxide Anion Gap BUN Creatinine Estimated GFR POC Glucose 278 H Random Glucose Calcium - Procedures 12/12/17Angio with embolization of the Left distal IMax territory, performed by IR Dr. Schultz Assessment and Plan - Assessment (1) CVA (cerebral vascular accident) Code(s): I63.9 - Cerebral infarction, unspecified Status: Acute (2) Epistaxis Code(s): R04.0 - Epistaxis Status: Acute (3) Anemia due to blood loss Code(s): D50.0 - Iron deficiency anemia secondary to blood loss (chronic) Status: Acute (4) Anemia, iron deficiency Code(s): D50.9 - Iron deficiency anemia, unspecified Status: Chronic (5) Atrial fibrillation with controlled ventricular rate Code(s): I48.91 - Unspecified atrial fibrillation Status: Chronic - Plan 82-year-old white male with a history of chronic atrial fibrillation on home Xarelto, coronary artery disease, hypertension presented to the [facility] emergency room with spontaneous nosebleed and was transferred here for ENT evaluation. During the course of the hospitalization, patient developed ischemic CVA. Recurrent spontaneous epistaxis: secondary to Xarelto/aspirin use. Patient is status post left internal maxillary embolization as well as right IMAX embolization due to persistent bleeding. - He has been stable until today . Xarelto previously stopped. Aspirin dose decreased yesterday to 81 mg given CVA. However epistaxis returned. - 12/31/17 recurrent epistaxis. I discussed the case with the on-call interventional radiologist Dr. Locke. He reviewed the films of the previous embolization and procedure notes. He noted there is nothing else that can be offered from IR standpoint. - Reconsult ENT. - Follow H&H. Hopefully this will resolved spontaneously. - Serial H&H - Patient certainly at risk for worsening in bleeding. I reassessed the patient and bleeding seems to be resolving. DW RN to call for any worsening of symptoms. Acute infarcts of the left cerebellum and in the left posterior cerebral artery distribution as well as right cerebellum Neurology recommendations appreciated MRI Brain with finding of Left cerebral and cerebellar as well as right cerebellar acute infarcts. Repeat Head CT 12/21/17 with Involving strokes cerebellar hemispheres left greater than right 2D echo with EF 50% Continue ASA, statin. Oral anticoagulation treatment currently contraindicated due to recent episode of epistaxis requiring interventions Continue with PT/OT Repeat CT on 12/30 after a fall revealed evolving stroke with hemorrhagic components. Appreciate Neurologist input. Continue to hold anticoagulation. Change to Aspirin 81 mg Metabolic and toxic encephalopathy due to acute CVA Appear to be worst today. Continue to monitor. - He slept better with increased dose of Seroquel to 25 mg HS to help with agitation symptoms. Acute on chronic iron deficiency anemia and acute blood loss anemia: due to spontaneous nosebleed. Patient reports long hx of iron deficiency. - S/P PRBC transfusion. -Follow serial H&H. May need more transfusion. 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 -Aspirin was held due to epistaxis; resumed. Decrease to 81 mg but epistaxis recurred. Hold Aspirin. -continue home metoprolol Atrial fibrillation: chronic, rate controlled -home Xarelto on hold due to epistaxis and anemia, continue home metoprolol -follow up with sap crm developer as outpatient (has sap crm developer in [place]) Diabetes mellitus type 2: chronic Hypoglycemic readings 12/22 - no further hypoglycemic readings -Monitor Accu-checks and cover with SSI metformin to twice daily DVT prophylaxisbilateral SCDs, no anticoagulation due to bleed/anemia Discharge Planning: Continue to monitor. Need to wean off restraints. (4) Anemia, iron deficiency Qualifiers: Iron deficiency anemia type: unspecified iron deficiency Qualified Code(s): D50.9 - Iron deficiency anemia, unspecified
[2017-12-31] MEDS: Ferrous Sulfate 325 MG Tablet PO SCH ×2 (13:41→17:15)
[2017-12-31 16:00] LABS: Hematocrit 26.3 % (39.0-51.0); Hemoglobin 8.2 gm/dL (13.0-17.0)
[2017-12-31 20:34] LABS: Hematocrit 26.8 % (39.0-51.0); Hemoglobin 8.3 gm/dL (13.0-17.0)
[2017-12-31] MEDS: QUEtiapine 25 MG Tablet PO SCH (21:49)
[2017-12-31] MEDS: Finasteride 5 MG Tablet PO SCH (21:50)
--- NOTE | 2018-01-01 00:10 | P.PN ---
Subjective Interval history: Patient transferred from [facility] for epistaxis. On xarelto for afib. Was embolized after failed conservative therapy. Subsequently has had packing removed. Back on 81 mg ASA. Had a minor bleed. No longer active. MR and CT of head have not shown any nasal mass or tumor. Physical Exam Vital signs: Vital Signs 12/31/17 04:00 12/31/17 08:00 12/31/17 12:00 Temperature 97.5 F L 97.5 F L 97.8 F Pulse Rate 80 80 90 Respiratory Rate 20 20 20 Blood Pressure 138/86 144/92 H 131/72 Pulse Oximetry 99 93 L 93 L 12/31/17 16:00 12/31/17 20:00 Temperature 97.9 F 97.9 F Pulse Rate 91 H 88 Respiratory Rate 20 18 Blood Pressure 130/82 160/76 H Pulse Oximetry 93 L 92 L Intake & Output 12/31/17 12/31/17 01/01/18 06:59 18:59 06:59 Intake Total 120 / 120 237 / 237 Balance 120 / 120 237 / 237 Weight 80 kg Intake: Oral 120 / 120 Oral Supplement 237 / 237 Other: # Urine Diapers 3 Date of Last Bowel Movement 12/29/17 12/29/17 12/29/17 - Routine HEENT Exam ENT: Present: mucous membranes moist, oropharynx clear, nares patent (no active bleed, no mass.), external ear normal - Urinary Catheter Management Condom Cath placed during this visit: no Results - Labs CBC & Chem 7: 12/31/17 20:08 12/31/17 07:41 Laboratory Results - last 24 hr 12/31/17 12/31/17 12/31/17 07:41 07:41 09:01 WBC 6.8 RBC 3.45 L Hgb 8.7 L Hct 26.5 L MCV 76.7 L MCH 25.3 L MCHC 33.0 RDW 20.5 H Plt Count 256 MPV 8.3 Sodium 140 Potassium 3.5 Chloride 102 Carbon Dioxide 32.5 H Anion Gap 6 BUN 35 H Creatinine 0.97 Estimated GFR 74 L POC Glucose 173 H Random Glucose 165 H Calcium 9.7 12/31/17 12/31/17 12/31/17 11:39 15:24 17:07 WBC RBC Hgb 8.2 L Hct 26.3 L MCV MCH MCHC RDW Plt Count MPV Sodium Potassium Chloride Carbon Dioxide Anion Gap BUN Creatinine Estimated GFR POC Glucose 278 H 210 H Random Glucose Calcium 12/31/17 12/31/17 20:08 21:08 WBC RBC Hgb 8.3 L Hct 26.8 L MCV MCH MCHC RDW Plt Count MPV Sodium Potassium Chloride Carbon Dioxide Anion Gap BUN Creatinine Estimated GFR POC Glucose 243 H Random Glucose Calcium - Procedures 12/12/17Angio with embolization of the Left distal IMax territory, performed by IR Dr. Schultz Assessment and Plan - Assessment (1) Epistaxis Code(s): R04.0 - Epistaxis Status: Acute - Plan Recent minor self limited epistaxis. Patient will be at risk on anticoagulant. Defer to neurology as to level of anticoagulation. Radiology shows no lesion. If not on Oxygen can apply Bactroban ointment into nose BID to keep nasal mucosa in better shape and less likely to bleed. If on O2, no ointments, can try Bactroban cream. ENT prn.
[2018-01-01 06:12] LABS: Hemoglobin 8.1 gm/dL (13.0-17.0); Mean Corpuscular Hemoglobin 24.3 pg (27.0-34.0); Mean Corpuscular Volume 78.2 fL (80.0-100.0); Mean Platelet Volume 8.6 fL (7.0-11.0); Platelet Count 243 th/mm3 (150-450); Red Blood Count 3.32 mil/mm3 (4.50-5.90); Red Cell Distribution Width 20.7 % (11.6-17.2)
[2018-01-01 06:38] LABS: Calcium 9.7 mg/dL (8.5-10.1); Carbon Dioxide 31.7 meq/L (21.0-32.0); Potassium 3.5 meq/L (3.5-5.1)
[2018-01-01] MEDS: Furosemide 20 MG Tablet PO SCH (09:37)
[2018-01-01] MEDS: hydroCHLOROthiazide 25 MG Tablet PO SCH (09:37)
[2018-01-01] MEDS: Loratadine 10 MG Tablet PO SCH (09:37)
[2018-01-01] MEDS: Sodium Chloride 0.9% 2 ML Flush BID IV.FLUSH SCH ×2 (09:49→22:09)
[2018-01-01] MEDS: Insulin NovoLOG Aspart Correctional Sugar Inj SQ SCH ×2 (09:49→18:31)
--- NOTE | 2018-01-01 15:41 | P.PNIM ---
Subjective Interval history: Patient restarted to have epistaxis again today. He is having large clots and fresh blood coming out of the right side of his nose and he is spitting significant amount of clots and fresh blood. Physical Exam Vital signs: Vital Signs 12/31/17 16:00 12/31/17 20:00 01/01/18 00:00 Temperature 97.9 F 97.9 F 98.5 F Pulse Rate 91 H 88 88 Respiratory Rate 20 18 18 Blood Pressure 130/82 160/76 H 150/90 H Pulse Oximetry 93 L 92 L 93 L 01/01/18 04:00 01/01/18 08:00 01/01/18 12:00 Temperature 97.8 F 97.7 F 98.2 F Pulse Rate 61 85 91 H Respiratory Rate 18 18 18 Blood Pressure 153/91 H 143/85 H 132/75 Pulse Oximetry 94 L 93 L 97 Intake & Output 12/31/17 01/01/18 01/01/18 18:59 06:59 18:59 Intake Total 237 / 237 357 / 357 Balance 237 / 237 357 / 357 Weight 79.6 kg Intake: Oral 120 / 120 Oral Supplement 237 / 237 237 / 237 Other: # Urine Diapers 3 3 Date of Last Bowel Movement 12/29/17 12/29/17 # Bowel Movements 0 Narrative: GENERAL: Elderly male in no acute distress. Right eye swelling and ecchymoses. HEENT: There is fresh blood on the right nostril. Fresh blood also noted in the oropharynx. CARDIOVASCULAR: Irregular rhythm regular rate with 2 out of 6 systolic ejection murmur RESPIRATORY: Clear to auscultation. Breath sounds equal bilaterally. No wheezes , rales, or rhonchi. GASTROINTESTINAL: Abdomen soft, non-tender, nondistended. Normal active bowel sounds MUSCULOSKELETAL: Extremities without clubbing, cyanosis, or edema. NEURO: Confused but follow some commands. Move all extremities spontaneously. Generalized weakness. - Urinary Catheter Management Condom Cath placed during this visit: no Results - Labs CBC & Chem 7: 01/01/18 05:19 01/01/18 05:19 Laboratory Results - last 24 hr 12/31/17 12/31/17 12/31/17 15:24 17:07 20:08 WBC RBC Hgb 8.2 L 8.3 L Hct 26.3 L 26.8 L MCV MCH MCHC RDW Plt Count MPV Sodium Potassium Chloride Carbon Dioxide Anion Gap BUN Creatinine Estimated GFR POC Glucose 210 H Random Glucose Calcium 12/31/17 01/01/18 01/01/18 21:08 05:19 05:19 WBC 7.0 RBC 3.32 L Hgb 8.1 L Hct 26.0 L MCV 78.2 L MCH 24.3 L MCHC 31.0 L RDW 20.7 H Plt Count 243 MPV 8.6 Sodium 142 Potassium 3.5 Chloride 105 Carbon Dioxide 31.7 Anion Gap 5 BUN 42 H Creatinine 0.96 Estimated GFR 75 L POC Glucose 243 H Random Glucose 202 H Calcium 9.7 01/01/18 09:41 WBC RBC Hgb Hct MCV MCH MCHC RDW Plt Count MPV Sodium Potassium Chloride Carbon Dioxide Anion Gap BUN Creatinine Estimated GFR POC Glucose 209 H Random Glucose Calcium - Procedures 12/12/17Angio with embolization of the Left distal IMax territory, performed by IR Dr. Schultz Assessment and Plan - Assessment (1) CVA (cerebral vascular accident) Code(s): I63.9 - Cerebral infarction, unspecified Status: Acute (2) Epistaxis Code(s): R04.0 - Epistaxis Status: Acute (3) Anemia due to blood loss Code(s): D50.0 - Iron deficiency anemia secondary to blood loss (chronic) Status: Acute (4) Anemia, iron deficiency Code(s): D50.9 - Iron deficiency anemia, unspecified Status: Chronic (5) Atrial fibrillation with controlled ventricular rate Code(s): I48.91 - Unspecified atrial fibrillation Status: Chronic - Plan 82-year-old white male with a history of chronic atrial fibrillation on home Xarelto, coronary artery disease, hypertension presented to the [place] emergency room with spontaneous nosebleed and was transferred here for ENT evaluation. During the course of the hospitalization, patient developed ischemic CVA. Recurrent spontaneous epistaxis: secondary to Xarelto/aspirin use. Patient is status post left internal maxillary embolization as well as right IMAX embolization due to persistent bleeding. - Xarelto previously stopped. Aspirin also on hold since yesterday. However epistaxis persisting. Resolved yesterday but recurred today. 12/31/17 and 01/01 recurrent epistaxis. I discussed the case with the on-call interventional radiologist Dr. Locke on 12/31. He reviewed the films of the previous embolization and procedure notes. He noted there is nothing else that can be offered from IR standpoint. - ELLEN RN has a call out to ENT - Serial H&H. Stat H&H and coags. - Patient certainly at risk for worsening bleeding. Acute infarcts of the left cerebellum and in the left posterior cerebral artery distribution as well as right cerebellum Neurology recommendations appreciated MRI Brain with finding of Left cerebral and cerebellar as well as right cerebellar acute infarcts. Repeat Head CT 12/21/17 with Involving strokes cerebellar hemispheres left greater than right 2D echo with EF 50% Continue ASA, statin. Oral anticoagulation treatment currently contraindicated due to recent episode of epistaxis requiring interventions Continue with PT/OT Repeat CT on 12/30 after a fall revealed evolving stroke with hemorrhagic components. Appreciate Neurologist input. Continue to hold anticoagulation at this point. Aspirin on hold due to active bleeding. Metabolic and toxic encephalopathy due to acute CVA Appear to be worst today. Continue to monitor. - He slept better with increased dose of Seroquel to 25 mg HS to help with agitation symptoms. Acute on chronic iron deficiency anemia and acute blood loss anemia: due to spontaneous nosebleed. Patient reports long hx of iron deficiency. - S/P PRBC transfusion. -Follow serial H&H. May need more transfusion. 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 -Aspirin was held due to epistaxis -continue home metoprolol Atrial fibrillation: chronic, rate controlled -home Xarelto on hold due to epistaxis and anemia, continue home metoprolol -follow up with supervisor pumping as outpatient (has supervisor pumping in [place]) Diabetes mellitus type 2: chronic Hypoglycemic readings 12/22 - no further hypoglycemic readings -Monitor Accu-checks and cover with SSI metformin to twice daily DVT prophylaxisbilateral SCDs, no anticoagulation due to bleed/anemia Discharge Planning: Continue to monitor. Still having issues with bleeding. (4) Anemia, iron deficiency Qualifiers: Iron deficiency anemia type: unspecified iron deficiency Qualified Code(s): D50.9 - Iron deficiency anemia, unspecified
--- NOTE | 2018-01-01 16:20 | P.PCN ---
Date of procedure: 01/01/18 (Patient with history of right epistaxis. Has had intermittent bleed. Saw him last night with no bleeding. Called to bedside with new right bleed. Not active when I arrived. Elected 5 cm Rapid Rhino nasal packing. ) Pre-op diagnosis: Epistaxis Post-op diagnosis: same Procedure: Right anterior to posterior nasal packing Anesthesia: none Surgeon: Jordin Fields Pathology: none sent Condition: stable Disposition: no change
[2018-01-01 16:21] LABS: Hematocrit 22.3 % (39.0-51.0); Mean Corpuscular Hemoglobin 24.7 pg (27.0-34.0); Mean Corpuscular Volume 79.6 fL (80.0-100.0); Mean Platelet Volume 8.1 fL (7.0-11.0); Platelet Count 273 th/mm3 (150-450); Red Blood Count 2.81 mil/mm3 (4.50-5.90); Red Cell Distribution Width 20.4 % (11.6-17.2); White Blood Count 7.8 th/mm3 (4.0-11.0)
[2018-01-01 16:29] LABS: Hemoglobin 6.9 gm/dL (13.0-17.0)
[2018-01-01 16:38] LABS: Activated Partial Thrombo Time 23.8 sec (23.4-31.7); INR 1.4 Ratio; Prothrombin Time 14.6 sec (9.8-11.6)
--- NOTE | 2018-01-01 17:15 | P.PNADD ---
Addendum to Inpatient Note Reason for Addendum: Additional Documentation Additional information: KELI note: Keli called at 1700. Residents responded immediately. Nurse states that patient continues to have epistaxis abd started coughing up clots of blood. States that they are he spoke to patient's primary team. Patient's H&H 6.9/ 22.3. Patient will be receiving 2 units of packed red blood cells and will be transferred to [facility]. Vitals: T 97.3, blood pressure 115/75, heart rate 99 GENERAL: Awake and alert. Airway protected. Several clots of blood on bed sheets. SKIN: slightly jaundice EYES: No scleral icterus. No injection or drainage. PERRLA. EOMI. HENT: Normocephalic. Atraumatic. MMM. OP Benign. NECK: Supple, trachea midline. No JVD or lymphadenopathy. CARDIOVASCULAR: Regular rate and rhythm without obvious murmurs, gallops, or rubs. RESPIRATORY: Breath sounds equal bilaterally. No accessory muscle use. CTAB. GASTROINTESTINAL: Abdomen soft, non-tender, nondistended. BS WNL. MUSCULOSKELETAL: No cyanosis or edema. Strength grossly WNL. BACK: Nontender without obvious deformity. No CVA tenderness. NEURO/PSYCH: Awake and alert, able to follow some commands A&P: 82-year-old male with history of chronic A. fib on home Xarelto, CAD, hypertension admitted for spontaneous recurrent epistaxis. ENT following Patient is status post left internal maxillary embolization as well as right IMAX embolization due to persistent bleeding. Patient had right anterior to posterior nasal packing this afternoon by ENT. -Continue to hold Xarelto and aspirin -Transfuse 2 units of packed red blood cells -H&H posttransfusion -Transfer patient to [facility] for worsening bleeding -Night Coordinator consulted sdw Dr. Fernandes :
[2018-01-01] MEDS: Ferrous Sulfate 325 MG Tablet PO SCH (18:30)
--- NOTE | 2018-01-01 18:55 | P.CONCC ---
History of Present Illness Service: Critical care medicine Consult date: 01/01/18 Requesting Physician: Eulalia Reed Reason for Consult: hemodynamic management Primary Care Provider: UNKNOWN Chief Complaint: Nose bleeding History of Present Illness: This is an 82yM with history of afib on xarelto who originally presented in early december for severe epistaxis. at that time he had embolization attempt x 2 which ultimately were successful at that time. while his anticoagulation was on hold, he had an ischemic CVA. today he had recurrence of his massive epistaxis. ENT was called and a Rhino Rocket was placed. Dr. Reed discussed the case with IR as well as ENT, and both services conveyed to him that there was no more procedural intervention that could be done for the patient, and if his epistaxis persisted, palliation should be considered. I was asked to see the patient in consultation to assist with hemodynamic management and possible airway management. On my evaluation, the patient is confused, but this appears to be baseline for the patient after his ischemic CVA and prior documentation confirms this. He is protecting his airway quite vigorously on nc o2. his bp is 144/80. his hgb is less than 7 and he has 2 units prbc ordered to be transfused. no additional information is available from the patient due to his confusion. ROS unobtainable. no active bleeding is noted at this time and the bedside RNCindi has not seen any active bleeding since arrival to the ICU. Review of Systems unobtainable due to mental status PMFSH - History History Provided By: Medical Record - Medical History Medical History: Medical History (Last Reviewed 01/01/18 @ 18:48 by Renan Bustillos MD) Atrial fibrillation Coronary artery disease Diabetes Glaucoma High cholesterol Hypertension Osteoarthritis - Surgical History Surgical History: Surgical History (Last Reviewed 01/01/18 @ 18:48 by Renan Bustillos MD) History of arthroscopic procedure on shoulder Hx of CABG Hx of cholecystectomy Hx of hernia repair Hx of joint replacement - Family History Family History: Family History (Last Reviewed 01/01/18 @ 18:48 by Renan Bustillos MD) Other Family history normal - Social History I have reviewed the patient's Social History: Yes - Tobacco History Second Hand Smoke Exposure: No Tobacco Use In Past 30 Days: No Smoking Status: Former smoker Tobacco Type: Cigarettes - Alcohol History How Often Do You Have a Drink Containing Alcohol: Never - Substance Use History Substance History: No History of Abuse - Travel History Recent Travel in the [place] Within the Last 8 Weeks: No Recent Travel Out of the Country Within the Last 8 Weeks: No - Immunization History Tetanus Immunization: Unsure Medications and Allergies Active Medications: Active Medications Acetaminophen (Tylenol) 650 mg PO Q4H PRN PRN Reason: PAIN 1-10 AND/OR FEVER >101F Last Admin: 12/30/17 23:41 Dose: 650 mg Al Hydroxide/Mg Hydroxide (Milk Of Magnesia Liq) 30 ml PO Q12H PRN PRN Reason: Mild Constipation Aspirin (Ecotrin) 81 mg PO DAILY [facility] Last Admin: 12/31/17 09:06 Dose: 81 mg Bisacodyl (Dulcolax Supp) 10 mg RECTAL DAILY PRN PRN Reason: SEVERE CONSITIPATION Cephalexin Monohydrate (Keflex) 500 mg PO BID [facility] Dextrose (D50w Vial) 50 ml IV.PUSH UNSCH PRN PRN Reason: PER HYPOGLYCEMIA PROTOCOL Last Admin: 12/22/17 13:35 Dose: 50 ml Docusate Sodium (Colace) 100 mg PO DAILY PRN PRN Reason: Constipation Last Admin: 12/16/17 07:53 Dose: 100 mg Ferrous Sulfate (Ferosul) 325 mg PO BID@1200,1700 [facility] Last Admin: 01/01/18 18:30 Dose: Not Given Finasteride (Proscar) 5 mg PO [facility] Last Admin: 12/31/17 21:50 Dose: 5 mg Furosemide (Lasix) 20 mg PO DAILY [facility] Last Admin: 01/01/18 09:37 Dose: 20 mg Glucagon (Glucagon Inj) 1 mg OTHER PRN PRN PRN Reason: for Hypoglycemia Protocol [facility] Last Admin: 12/22/17 17:44 Dose: 2.5 mg Hydrochlorothiazide (Hydrodiuril) 25 mg PO DAILY [facility] Last Admin: 01/01/18 09:37 Dose: 25 mg Lactulose (Lactulose Liq) 30 ml PO DAILY PRN PRN Reason: SEVERE CONSITIPATION Loratadine (Claritin) 10 mg PO DAILY [facility] Last Admin: 01/01/18 09:37 Dose: 10 mg Metformin [facility]ucophage) [facility] Last Admin: 01/01/18 18:31 Dose: Not Given Metoprolol Succinate (Toprol Xl) 25 mg PO BID [facility] Last Admin: 01/01/18 09:37 Dose: 25 mg Ondansetron HCl (Zofran Inj) 4 mg IV.PUSH Q6H PRN PRN Reason: NAUSEA OR VOMITING Last Admin: 12/12/17 15:44 Dose: 4 mg Pantoprazole Sodium (Protonix) 40 mg PO DAILY [facility] Last Admin: 01/01/18 09:37 Dose: 40 mg Potassium Chloride (Klor-Con 10) 10 meq PO BID [facility] Last Admin: 01/01/18 09:37 Dose: 10 meq Pravastatin Sodium (Pravachol) 40 mg PO QPM [facility] Last Admin: 01/01/18 18:31 Dose: Not Given Quetiapine Fumarate (Seroquel) 25 mg PO [facility] Last Admin: 12/31/17 21:49 Dose: 25 mg Sennosides (Senokot) 17.2 mg PO Q12H PRN PRN Reason: Moderate Constipation Sodium Chloride (Ns Flush) 2 ml IV.FLUSH BID [facility] Last Admin: 01/01/18 09:49 Dose: Not Given Sodium Chloride (Ns Flush) 2 ml IV.FLUSH PRN PRN PRN Reason: FLUSH AFTER USING IV ACCESS Allergies Allergy/AdvReac Type Severity Reaction Status Date / Time Sulfa (Sulfonamide Allergy Blister Verified 12/09/17 10:33 Antibiotics) Home Medications Medication Instructions Recorded Confirmed Type aspirin 81 mg PO QA 12/09/17 12/09/17 History cyanocobalamin (vitamin B-12) 1,000 mcg PO DAILY 12/09/17 12/09/17 History [Vitamin B-12] docusate sodium [Colace] 100 mg PO DAILY PRN 12/09/17 12/09/17 History dutasteride [Avodart] 0.5 mg PO 12/09/17 12/09/17 History fluticasone [Flonase Allergy 2 spray INTRANASAL 12/09/17 12/09/17 History Relief] furosemide [Lasix] 20 mg PO DAILY 12/09/17 12/09/17 History glyburide-metformin 1 tab PO BID 12/09/17 12/09/17 History hydrochlorothiazide 25 mg PO QAM 12/09/17 12/09/17 History inulin 2 tab PO 12/09/17 12/09/17 History loratadine [Claritin] 10 mg PO QAM 12/09/17 12/09/17 History metoprolol succinate 25 mg PO BID 12/09/17 12/09/17 History uxullbnz-jax-IY-lycopen-lutein 1 tab PO QPM 12/09/17 12/09/17 History [Centrum Silver] nitroglycerin 0.4 mg SUBLINGUAL Q5-15M PRN 12/09/17 12/09/17 History omeprazole 40 mg PO QAM 12/09/17 12/09/17 History potassium chloride [Klor-Con 10] 10 meq PO BID 12/09/17 12/09/17 History pravastatin 40 mg PO QPM 12/09/17 12/09/17 History rivaroxaban [Xarelto] 15 mg PO QPM 12/09/17 12/09/17 History silodosin [Rapaflo] 4 mg PO DAILY PRN 12/09/17 12/09/17 History temazepam [Restoril] 15 mg PO HS PRN 12/09/17 12/09/17 History Physical Exam Vital signs: Vital Signs 12/31/17 20:00 01/01/18 00:00 01/01/18 04:00 Temperature 36.6 C 36.9 C 36.6 C Pulse Rate 88 88 61 Respiratory Rate 18 18 18 Blood Pressure 160/76 H 150/90 H 153/91 H Pulse Oximetry 92 L 93 L 94 L 01/01/18 08:00 01/01/18 12:00 01/01/18 17:43 Temperature 36.5 C 36.8 C Pulse Rate 85 91 H Respiratory Rate 18 18 Blood Pressure 143/85 H 132/75 Pulse Oximetry 93 L 97 97 Intake & Output 12/31/17 01/01/18 01/01/18 18:59 06:59 18:59 Intake Total 237 / 237 357 / 357 Balance 237 / 237 357 / 357 Weight 79.6 kg Intake: Oral 120 / 120 Oral Supplement 237 / 237 237 / 237 Other: # Urine Diapers 3 3 Date of Last Bowel Movement 12/29/17 12/29/17 # Bowel Movements 0 Narrative: GENERAL: Elderly male lying in bed, confused but arousable. no acute distress. dried blood around the nose and mouth. HEENT: right nare is packed with rhino rocket. old blood around the mouth and nares. no active bleeding noted. no bright red blood. vigorous cough and gag. airway widely patent. protects airway. CARDIOVASCULAR: Irregular rhythm regular rate. afib. sbp 140s on my eval. RESPIRATORY: Clear to auscultation. Breath sounds equal bilaterally. unlabored. equal chest rise. GASTROINTESTINAL: Abdomen soft, non-tender, nondistended. no guarding. MUSCULOSKELETAL: Extremities without clubbing, cyanosis, or edema. NEURO: Confused but follow some commands. Move all extremities spontaneously. Generalized weakness. protects airway. vigorous cough and gag. - Urinary Catheter Management Condom Cath placed during this visit: no Assessment and Plan - Assessment and Plan Plan: Assessment: 82yM with severe recurrent epistaxis and anemia secondary to acute blood loss. I agree this is a very difficult medical position for the patient to be in, as when his anticoagulation is held he has significant and morbid ischemic CVA, but on anticoagulation, we have recurrent epistaxis that we cannot control at this point. We have exhausted all of our options for medically managing his competing medical problems. I think palliative care consult is most warranted. He remains FULL CODE at this time. He is not actively bleeding at this time. Agree with transfusion and serial H&H. unclear what the best anticoagulation plan is, as both are equally dangerous, but since we have active bleeding at this time, will err on the side of holding anticoagulation. highly complex. Active problems: Atrial fibrillation Massive epistaxis Anemia secondary to acute blood loss requiring transfusion ischemic CVA Plan: - trend H&H - send fibrinogen, PT, PTT levels - hold anticoagulation, although this comes with risks - palliative care consultation - per ENT and IR: no additional procedures have any benefit in stopping epistaxis - transfuse to keep hgb > 7 - keep in ICU overnight. if bleeding does not persist, can transition out of ICU tomorrow - can return to hospitalist service in the AM if no additional bleeding.
[2018-01-01] MEDS: QUEtiapine 25 MG Tablet PO SCH (22:08)
[2018-01-01] MEDS: Finasteride 5 MG Tablet PO SCH (22:09)
[2018-01-02 03:59] LABS: Hematocrit 27.3 % (39.0-51.0); Hemoglobin 8.7 gm/dL (13.0-17.0); Mean Corpuscular HGB Conc 31.9 % (32.0-36.0); Mean Corpuscular Hemoglobin 25.3 pg (27.0-34.0); Mean Corpuscular Volume 79.4 fL (80.0-100.0); Mean Platelet Volume 8.4 fL (7.0-11.0); Platelet Count 223 th/mm3 (150-450); Red Blood Count 3.44 mil/mm3 (4.50-5.90); Red Cell Distribution Width 18.9 % (11.6-17.2); White Blood Count 8.4 th/mm3 (4.0-11.0)
[2018-01-02 04:09] LABS: Activated Partial Thrombo Time 25.2 sec (23.4-31.7); INR 1.4 Ratio
[2018-01-02 04:28] LABS: Calcium 9.5 mg/dL (8.5-10.1); Carbon Dioxide 31.8 meq/L (21.0-32.0); Magnesium 1.9 mg/dL (1.5-2.5); Phosphorus 2.9 mg/dL (2.5-4.9); Potassium 3.9 meq/L (3.5-5.1)
[2018-01-02] MEDS: Sodium Chloride 0.9% 2 ML Flush BID IV.FLUSH SCH ×2 (09:09→20:27)
[2018-01-02] MEDS: Loratadine 10 MG Tablet PO SCH (09:09)
[2018-01-02] MEDS: hydroCHLOROthiazide 25 MG Tablet PO SCH (09:09)
[2018-01-02] MEDS: Furosemide 20 MG Tablet PO SCH (09:09)
--- NOTE | 2018-01-02 10:00 | P.PNIM ---
Subjective Interval history: HALICAT overnight for massive epistaxis again and his hgb dropped to 6.9, patient observed in the ICU overnight. Appreciate radio artist Dr. Ash input. bleeding seems to have stopped. Physical Exam Vital signs: Vital Signs 01/01/18 12:00 01/01/18 17:43 01/01/18 20:00 Temperature 98.2 F 98.6 F Pulse Rate 91 H 83 Respiratory Rate 18 23 Blood Pressure 132/75 144/78 H Pulse Oximetry 97 97 96 01/01/18 20:30 01/01/18 20:36 01/01/18 20:50 Temperature 98.2 F 98.0 F Pulse Rate 96 H 98 H Respiratory Rate 19 22 Blood Pressure 144/80 H 147/90 H Pulse Oximetry 98 98 96 01/01/18 22:00 01/01/18 23:57 01/02/18 00:00 Temperature 98.7 F 99 F Pulse Rate 86 90 81 Respiratory Rate 24 21 Blood Pressure 159/92 H 163/85 H Pulse Oximetry 100 97 01/02/18 00:10 01/02/18 02:00 01/02/18 04:00 Temperature 97.9 F 99.1 F Pulse Rate 86 89 92 H Respiratory Rate 22 22 Blood Pressure 163/85 H 172/92 H Pulse Oximetry 100 97 01/02/18 06:00 01/02/18 07:00 01/02/18 08:00 Temperature 97.7 F Pulse Rate 90 87 Respiratory Rate 24 Blood Pressure 182/83 H Pulse Oximetry 95 96 Intake & Output 01/01/18 01/02/18 01/02/18 18:59 06:59 18:59 Intake Total 357 / 357 1040 / 1040 Output Total 900 / 900 Balance 357 / 357 140 / 140 Weight 70.5 kg Intake: Oral 120 / 120 240 / 240 Oral Supplement 237 / 237 Intake (Blood Product) Amt 800 / 800 Rbc As-3 Leukoreduced Unit 400 / 400 [id number] Rbc As-3 Leukoreduced Unit 400 / 400 [id number] Output: Urine 900 / 900 Other: Date of Last Bowel Movement 12/29/17 # Bowel Movements 0 Narrative: GENERAL: Elderly male lying in bed, confused HEENT: right nare is packed with rhino rocket. Dried blood around the mouth. CARDIOVASCULAR: Normal rate and Irregular rhythm RESPIRATORY: Clear to auscultation. Breath sounds equal bilaterally. GASTROINTESTINAL: Abdomen soft, non-tender, nondistended. no guarding. MUSCULOSKELETAL: Extremities without clubbing, cyanosis, or edema. NEURO: Confused. Requires restraint. Follow some commands. Move all extremities spontaneously. Generalized weakness. - Urinary Catheter Management Condom Cath placed during this visit: no Results - Labs CBC & Chem 7: 01/02/18 03:35 01/02/18 03:35 Laboratory Results - last 24 hr 12/12/17 01/01/18 01/01/18 13:57 09:41 16:09 WBC RBC Hgb Hct MCV MCH MCHC RDW Plt Count MPV PT 14.6 H INR 1.4 APTT 23.8 Fibrinogen Sodium Potassium Chloride Carbon Dioxide Anion Gap BUN Creatinine Estimated GFR POC Glucose 209 H Random Glucose Calcium Phosphorus Magnesium Nasal Screen MRSA (PCR) Blood Type Antibody Screen MTS Gel Crossmatch See Detail 01/01/18 01/01/18 01/01/18 16:09 17:09 17:14 WBC 7.8 RBC 2.81 L Hgb 6.9 L* Hct 22.3 L MCV 79.6 L MCH 24.7 L MCHC 31.0 L RDW 20.4 H Plt Count 273 MPV 8.1 PT INR APTT Fibrinogen Sodium Potassium Chloride Carbon Dioxide Anion Gap BUN Creatinine Estimated GFR POC Glucose 273 H Random Glucose Calcium Phosphorus Magnesium Nasal Screen MRSA (PCR) Blood Type O Positive Antibody Screen Negative MTS Gel Crossmatch See Detail 01/01/18 01/01/18 01/01/18 17:40 18:00 18:00 WBC RBC Hgb Hct MCV MCH MCHC RDW Plt Count MPV PT INR APTT 23.8 Fibrinogen 279 Sodium Potassium Chloride Carbon Dioxide Anion Gap BUN Creatinine Estimated GFR POC Glucose Random Glucose Calcium Phosphorus Magnesium Nasal Screen MRSA (PCR) Not detected Blood Type Antibody Screen MTS Gel Crossmatch 01/01/18 01/02/18 01/02/18 21:32 03:35 03:35 WBC 8.4 RBC 3.44 L Hgb 8.7 L Hct 27.3 L MCV 79.4 L MCH 25.3 L MCHC 31.9 L RDW 18.9 H Plt Count 223 MPV 8.4 PT 14.0 H INR 1.4 APTT 25.2 Fibrinogen Sodium Potassium Chloride Carbon Dioxide Anion Gap BUN Creatinine Estimated GFR POC Glucose 290 H Random Glucose Calcium Phosphorus Magnesium Nasal Screen MRSA (PCR) Blood Type Antibody Screen MTS Gel Crossmatch 01/02/18 01/02/18 03:35 07:32 WBC RBC Hgb Hct MCV MCH MCHC RDW Plt Count MPV PT INR APTT Fibrinogen Sodium 143 Potassium 3.9 Chloride 107 Carbon Dioxide 31.8 Anion Gap 4 L BUN 57 H Creatinine 1.03 Estimated GFR 69 L POC Glucose 247 H Random Glucose 274 H Calcium 9.5 Phosphorus 2.9 Magnesium 1.9 Nasal Screen MRSA (PCR) Blood Type Antibody Screen MTS Gel Crossmatch - Procedures 12/12/17Angio with embolization of the Left distal IMax territory, performed by IR Dr. Schultz Assessment and Plan - Assessment (1) CVA (cerebral vascular accident) Code(s): I63.9 - Cerebral infarction, unspecified Status: Acute (2) Epistaxis Code(s): R04.0 - Epistaxis Status: Acute (3) Anemia due to blood loss Code(s): D50.0 - Iron deficiency anemia secondary to blood loss (chronic) Status: Acute (4) Anemia, iron deficiency Code(s): D50.9 - Iron deficiency anemia, unspecified Status: Chronic (5) Atrial fibrillation with controlled ventricular rate Code(s): I48.91 - Unspecified atrial fibrillation Status: Chronic - Plan 82-year-old white male with a history of chronic atrial fibrillation on home Xarelto, coronary artery disease, hypertension presented to the [place] emergency room with spontaneous nosebleed and was transferred here for ENT evaluation. During the course of the hospitalization, patient developed ischemic CVA. Recurrent spontaneous epistaxis: secondary to Xarelto/aspirin use. Patient is status post left internal maxillary embolization as well as right IMAX embolization due to persistent bleeding. - Xarelto previously stopped. Aspirin also on hold since yesterday. However epistaxis persisting. Resolved yesterday but recurred today. 12/31/17 and 01/01 recurrent epistaxis. I discussed the case with the on-call interventional radiologist Dr. Locke on 12/31. He reviewed the films of the previous embolization and procedure notes. He noted there is nothing else that can be offered from IR standpoint. - Appreciate ENT input. Patient had rhino rocket placed on the right on 01/01. Continued to have significant epistaxis and Transferred to ICU the night of . 01/02: Bleeding seems to resolve. rhino rocket in place. Continue. H&H stable post transfusion. Agree with palliative care consult as patient remain at risk for worsening bleeding and there is not a lot more that can be offered. Acute infarcts of the left cerebellum and in the left posterior cerebral artery distribution as well as right cerebellum Neurology recommendations appreciated MRI Brain with finding of Left cerebral and cerebellar as well as right cerebellar acute infarcts. Repeat Head CT 12/21/17 with Involving strokes cerebellar hemispheres left greater than right 2D echo with EF 50% Continue ASA, statin. Oral anticoagulation treatment currently contraindicated due to recent episode of epistaxis requiring interventions Continue with PT/OT Repeat CT on 12/30 after a fall revealed evolving stroke with hemorrhagic components. Appreciate Neurologist input. Continue to hold anticoagulation at this point. Aspirin on hold due to persistent and recurrent bleeding. Metabolic and toxic encephalopathy due to acute CVA Continue to monitor. - Increase Seroquel to 25 mg BID. Acute on chronic iron deficiency anemia and acute blood loss anemia: due to spontaneous nosebleed. Patient reports long hx of iron deficiency. - S/P PRBC transfusion. -Follow H&H. 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 -Aspirin was held due to epistaxis -continue home metoprolol Atrial fibrillation: chronic, rate controlled -home Xarelto on hold due to epistaxis and anemia, continue home metoprolol -follow up with exhaust and muffler fitter as outpatient (has exhaust and muffler fitter in [place]) Diabetes mellitus type 2: chronic Hypoglycemic readings 12/22 - no further hypoglycemic readings -Monitor Accu-checks and cover with SSI metformin to twice daily DVT prophylaxisbilateral SCDs, no anticoagulation due to bleed/anemia Discharge Planning: OK to transfer back to floor. (4) Anemia, iron deficiency Qualifiers: Iron deficiency anemia type: unspecified iron deficiency Qualified Code(s): D50.9 - Iron deficiency anemia, unspecified
[2018-01-02 11:02] LABS: Hematocrit 27.1 % (39.0-51.0)
[2018-01-02] MEDS: Ferrous Sulfate 325 MG Tablet PO SCH ×2 (11:06→17:10)
[2018-01-02] MEDS: QUEtiapine 25 MG Tablet PO SCH ×2 (11:06→20:26)
--- NOTE | 2018-01-02 11:44 | P.PN ---
Subjective Interval history: Events from yesterday noted. Has been transfused. Despite bilateral packing, bilateral MARILYN ligation and now unilateral packing, continues intermittent severe epistaxis. Cannot visualize a lesion. CT and MRI brain did not describe any nasal mass or tumor. Currenlty comfortable without bleeding. Right pack in place 24 hours. Physical Exam Vital signs: Vital Signs 01/01/18 12:00 01/01/18 17:43 01/01/18 20:00 Temperature 98.2 F 98.6 F Pulse Rate 91 H 83 Respiratory Rate 18 23 Blood Pressure 132/75 144/78 H Pulse Oximetry 97 97 96 01/01/18 20:30 01/01/18 20:36 01/01/18 20:50 Temperature 98.2 F 98.0 F Pulse Rate 96 H 98 H Respiratory Rate 19 22 Blood Pressure 144/80 H 147/90 H Pulse Oximetry 98 98 96 01/01/18 22:00 01/01/18 23:57 01/02/18 00:00 Temperature 98.7 F 99 F Pulse Rate 86 90 81 Respiratory Rate 24 21 Blood Pressure 159/92 H 163/85 H Pulse Oximetry 100 97 01/02/18 00:10 01/02/18 02:00 01/02/18 04:00 Temperature 97.9 F 99.1 F Pulse Rate 86 89 92 H Respiratory Rate 22 22 Blood Pressure 163/85 H 172/92 H Pulse Oximetry 100 97 01/02/18 06:00 01/02/18 07:00 01/02/18 08:00 Temperature 97.7 F Pulse Rate 90 87 Respiratory Rate 24 Blood Pressure 182/83 H Pulse Oximetry 95 96 01/02/18 10:00 Temperature Pulse Rate 88 Respiratory Rate Blood Pressure Pulse Oximetry Intake & Output 01/01/18 01/02/18 01/02/18 18:59 06:59 18:59 Intake Total 357 / 357 1040 / 1040 Output Total 900 / 900 Balance 357 / 357 140 / 140 Weight 70.5 kg Intake: Oral 120 / 120 240 / 240 Oral Supplement 237 / 237 Intake (Blood Product) Amt 800 / 800 Rbc As-3 Leukoreduced Unit 400 / 400 [id number] Rbc As-3 Leukoreduced Unit 400 / 400 [id number] Output: Urine 900 / 900 Other: Date of Last Bowel Movement 11/21/18 # Bowel Movements 0 - Routine HEENT Exam ENT: Present: nares patent (Right rapid rhino pack in place. ) - Urinary Catheter Management Condom Cath placed during this visit: no Results - Labs CBC & Chem 7: 01/02/18 10:45 01/02/18 03:35 Laboratory Results - last 24 hr 12/12/17 01/01/18 01/01/18 13:57 16:09 16:09 WBC 7.8 RBC 2.81 L Hgb 6.9 L* Hct 22.3 L MCV 79.6 L MCH 24.7 L MCHC 31.0 L RDW 20.4 H Plt Count 273 MPV 8.1 PT 14.6 H INR 1.4 APTT 23.8 Fibrinogen Sodium Potassium Chloride Carbon Dioxide Anion Gap BUN Creatinine Estimated GFR POC Glucose Random Glucose Calcium Phosphorus Magnesium Nasal Screen MRSA (PCR) Blood Type Antibody Screen MTS Gel Crossmatch See Detail 01/01/18 01/01/18 01/01/18 17:09 17:14 17:40 WBC RBC Hgb Hct MCV MCH MCHC RDW Plt Count MPV PT INR APTT Fibrinogen Sodium Potassium Chloride Carbon Dioxide Anion Gap BUN Creatinine Estimated GFR POC Glucose 273 H Random Glucose Calcium Phosphorus Magnesium Nasal Screen MRSA (PCR) Not detected Blood Type O Positive Antibody Screen Negative MTS Gel Crossmatch See Detail 01/01/18 01/01/18 01/01/18 18:00 18:00 21:32 WBC RBC Hgb Hct MCV MCH MCHC RDW Plt Count MPV PT INR APTT 23.8 Fibrinogen 279 Sodium Potassium Chloride Carbon Dioxide Anion Gap BUN Creatinine Estimated GFR POC Glucose 290 H Random Glucose Calcium Phosphorus Magnesium Nasal Screen MRSA (PCR) Blood Type Antibody Screen MTS Gel Crossmatch 01/02/18 01/02/18 01/02/18 03:35 03:35 03:35 WBC 8.4 RBC 3.44 L Hgb 8.7 L Hct 27.3 L MCV 79.4 L MCH 25.3 L MCHC 31.9 L RDW 18.9 H Plt Count 223 MPV 8.4 PT 14.0 H INR 1.4 APTT 25.2 Fibrinogen Sodium 143 Potassium 3.9 Chloride 107 Carbon Dioxide 31.8 Anion Gap 4 L BUN 57 H Creatinine 1.03 Estimated GFR 69 L POC Glucose Random Glucose 274 H Calcium 9.5 Phosphorus 2.9 Magnesium 1.9 Nasal Screen MRSA (PCR) Blood Type Antibody Screen MTS Gel Crossmatch 01/02/18 01/02/18 07:32 10:45 WBC RBC Hgb 9.0 L Hct 27.1 L MCV MCH MCHC RDW Plt Count MPV PT INR APTT Fibrinogen Sodium Potassium Chloride Carbon Dioxide Anion Gap BUN Creatinine Estimated GFR POC Glucose 247 H Random Glucose Calcium Phosphorus Magnesium Nasal Screen MRSA (PCR) Blood Type Antibody Screen MTS Gel Crossmatch - Procedures 12/12/17Angio with embolization of the Left distal IMax territory, performed by IR Dr. Schultz Assessment and Plan - Assessment (1) Epistaxis Code(s): R04.0 - Epistaxis Status: Acute - Plan Had another severe episode of epistaxis. This has continued since his transfer to [facility] [place]. Despite bilateral posterior packing and bilateral MARILYN ligation. Has not shown a mass on imaging. Understand call for palliative care. Another [facility], Dr Zaire Butcher or Dr Nagi Page at [facility] are both Rhinologists and could help. Suspect source of bleed posterior and treatment beyond out scope of care. It is possible also with conservative management and transfusion as necessary, that the area will heal and stop spontaneously. Defer to team decision and outcome of palliative care discussion. Will leave right pack until Wednesday for now.
[2018-01-02 17:03] LABS: Hematocrit 26.3 % (39.0-51.0); Hemoglobin 8.9 gm/dL (13.0-17.0)
[2018-01-02] MEDS: Finasteride 5 MG Tablet PO SCH (20:25)
[2018-01-03 00:24] LABS: Hematocrit 26.6 % (39.0-51.0); Hemoglobin 8.5 gm/dL (13.0-17.0)
[2018-01-03 04:23] LABS: Hematocrit 26.4 % (39.0-51.0); Hemoglobin 8.4 gm/dL (13.0-17.0); Mean Corpuscular HGB Conc 31.8 % (32.0-36.0); Mean Corpuscular Hemoglobin 25.4 pg (27.0-34.0); Mean Corpuscular Volume 79.7 fL (80.0-100.0); Mean Platelet Volume 8.3 fL (7.0-11.0); Platelet Count 209 th/mm3 (150-450); Red Blood Count 3.31 mil/mm3 (4.50-5.90); Red Cell Distribution Width 19.4 % (11.6-17.2); White Blood Count 9.9 th/mm3 (4.0-11.0)
[2018-01-03 04:35] LABS: Activated Partial Thrombo Time 24.6 sec (23.4-31.7); INR 1.3 Ratio; Prothrombin Time 13.5 sec (9.8-11.6)
[2018-01-03 04:53] LABS: Calcium 9.6 mg/dL (8.5-10.1); Carbon Dioxide 32.2 meq/L (21.0-32.0); Magnesium 1.7 mg/dL (1.5-2.5); Phosphorus 2.6 mg/dL (2.5-4.9); Potassium 3.7 meq/L (3.5-5.1)
[2018-01-03] MEDS: hydroCHLOROthiazide 25 MG Tablet PO SCH (10:40)
[2018-01-03] MEDS: Loratadine 10 MG Tablet PO SCH (10:41)
[2018-01-03] MEDS: QUEtiapine 25 MG Tablet PO SCH ×2 (10:41→21:54)
[2018-01-03] MEDS: Sodium Chloride 0.9% 2 ML Flush BID IV.FLUSH SCH ×2 (10:41→21:54)
[2018-01-03] MEDS: Furosemide 20 MG Tablet PO SCH (10:41)
[2018-01-03] MEDS: Ferrous Sulfate 325 MG Tablet PO SCH ×2 (14:21→18:24)
--- NOTE | 2018-01-03 15:35 | P.CONPAL ---
Consult Service: Palliative Care Requesting Physician: Renan Bustillos Reason for Consult: a. To assist with evaluation and management of symptoms including: Pain, altered mental status, physical deconditioning. b. To assist medical decision maker(s) with: better understanding of current medical conditions; weighing benefits/burdens of medical treatment options; making medical treatment decisions. Primary Care Provider: UNKNOWN History of Present Illness History of Present Illness: Mr Larkin is an 82-year-old male with a medical history of atrial fibrillation on chronic anticoagulation, Xarelto, coronary artery disease s/p CABG, hypertension, diabetes, high cholesterol, gastritis, colon polyps, iron deficiency anemia and osteoarthritis. Patient was transferred from [facility] emergency room in [place] to [place] emergency room on 12/09/17 for evaluation by ENT after he presented earlier on at [facility] with complaints of spontaneous nosebleed. Patient had bilateral Rhino Rocket's placed at [facility] and continued to have bleeding despite intervention and it was decided to transfer patient to [facility] for further evaluation. Prior to this hospitalization patient had a comprehensive endoscopy and colonoscopy approximately a week ago and he was diagnosed with iron deficiency anemia, gastritis and colon polyps. [facility] [facility] course: * Vital signs: Temperature 98.6F, pulse 88, respirations 18, BP 126/73, O2 saturation 96%. * Hemoglobin 7.6, hematocrit 23.8 * Patient admitted for further evaluation and management under [facility] hospitalist. ENT Dr. Portillo consulted on for evaluation and management of a patient with epistaxis, recommended keeping blood pressure under control, monitoring labs and avoiding anything that could increase risk of nosebleeds including hot foods and any foods that require heavy chewing. 12/10/17: Laboratory workup revealed WBC 6.7, hemoglobin 7.1, hematocrit 22.7, platelet count 180. Patient's hemoglobin trended down to 6.8 and hematocrit 21.3 on 12/11 requiring transfusion. Due to persistent bleeding, patient underwent cerebral angiography with embolization of the left distal IMax territory. Right side was not evaluated due to type III arch and cessation of bleeding post embolization of the left side. Per radiologist if patient had another episode of bleeding right side can be evaluated however embolization of this would be difficult secondary to arch configuration. Patient became agitated and confused status post embolization. Head CT on 2017 revealed subacute infarct suspected of the left cerebellum and in the left posterior cerebral artery distribution and chronic white matter changes. No hemorrhage. Neurology Dr. Gonzalez consulted on 12/17/17 for evaluation and management of a patient with a stroke, recommended continuing aspirin since patient is not a candidate for anticoagulation due to severe epistaxis and anemia. Echocardiogram on 12/18/17 revealed normal left ventricular systolic function with an estimated ejection fraction of 50%. Head CTA on 12/18/17 negative. Next CTA on 12/18/17 negative. MRI brain on 12/18/17 negative. MRI brain on 12/18/17 revealed left cerebral and cerebellar as well as right cerebellar acute infarcts and atrophy and white matter disease. Repeat head CT on 12/22/17 revealed involvement strokes cerebellar hemispheres left greater than right with no acute hemorrhage or mass-effect. Patient fell on 12/30/17. CT head 12/30 revealed subacute bilateral cerebellar hemisphere infarcts in left posterior cerebral hemisphere infarct with some interval development of hemorrhagic change within the left cerebellar infarct and left posterior cerebral infarct. Mild mass-effect but no midline shift noted in the right sided frontal scalp/periorbital scalp hematoma. [facility] team was called on 01/01/18 after patient was noted to be coughing and expectorating blood clots as well as nose bleeding. He was transferred to [facility]. Critical care management physician Dr. Bustillos was consulted on 01/01/18 for evaluation and management of patient with persistent epistaxis and lower hemoglobin requiring transfusion. Per Dr. Fields, patient has continued to have epistaxis despite bilateral posterior nasal packing and bilateral MARILYN ligation, recommended referring patient to [facility] highway maintenance worker if patient continues to bleed. Speech therapy consulted, recommending mechanical soft diet and thin liquids. Occupational therapy recommending OT at rehab. Physical therapy recommending PT at rehab. 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 Palliative care consulted for symptom management and establishment of goals of medical treatment. Laboratory workup today 01/03 revealing WBC 9.9, hemoglobin 8.4, hematocrit 26.4, platelet count 209, PT 1 3.5 , INR 1.3, APTT 24.6, sodium 146, potassium 3.7, BUN/creatinine 43/1.05, random glucose 311. Patient is lethargic, not verbalizing, and not following simple commands. Patient is in bilateral upper extremity soft restraints. There is no family at bedside. Telephone call placed to patient`s spouse, with no response-voice message with palliative care contact information provided. Case discussed with bedside RN. Function/Cognitive Trajectory: Prior to this hospitalization patient lives with spouse in a private home. Patient was independent with all activities of daily living and ambulated with no assistive device. [facility] - History History Provided By: Medical Record - Medical History Medical History: Medical History (Last Updated 01/03/18 @ 14:46 by Ritchie Villafuerte) Atrial fibrillation Colon polyps Coronary artery disease Diabetes Gastritis Glaucoma H/O endoscopy High cholesterol Hypertension Osteoarthritis - Surgical History Surgical History: Surgical History (Last Updated 01/03/18 @ 14:45 by Ritchie Villafuerte) History of arthroscopic procedure on shoulder History of colonoscopy Hx of CABG Hx of cholecystectomy Hx of hernia repair Hx of joint replacement - Family History Family History: Family History (Last Reviewed 01/01/18 @ 18:48 by Renan Bustillos MD) Other Family history normal - Tobacco History Second Hand Smoke Exposure: No Tobacco Use In Past 30 Days: No Smoking Status: Former smoker Tobacco Type: Cigarettes - Alcohol History How Often Do You Have a Drink Containing Alcohol: Never - Substance Use History Substance History: No History of Abuse - Travel History Recent Travel in the [place] Within the Last 8 Weeks: No Recent Travel Out of the Country Within the Last 8 Weeks: No - Immunization History Tetanus Immunization: Unsure Medications and Allergies Active Medications: Active Medications Acetaminophen (Tylenol) 650 mg PO Q4H PRN PRN Reason: PAIN 1-10 AND/OR FEVER >101F Last Admin: 12/30/17 23:41 Dose: 650 mg Al Hydroxide/Mg Hydroxide (Milk Of Magnesia Liq) 30 ml PO Q12H PRN PRN Reason: Mild Constipation Aspirin (Ecotrin) 81 mg PO DAILY [facility] Last Admin: 12/31/17 09:06 Dose: 81 mg Bisacodyl (Dulcolax Supp) 10 mg RECTAL DAILY PRN PRN Reason: SEVERE CONSITIPATION Cephalexin Monohydrate (Keflex) 500 mg PO BID [facility] Last Admin: 01/03/18 10:40 Dose: 500 mg Dextrose (D50w Vial) 50 ml IV.PUSH UNSCH PRN PRN Reason: PER HYPOGLYCEMIA PROTOCOL Last Admin: 12/22/17 13:35 Dose: 50 ml Docusate Sodium (Colace) 100 mg PO DAILY PRN PRN Reason: Constipation Last Admin: 12/16/17 07:53 Dose: 100 mg Ferrous Sulfate (Ferosul) 325 mg PO BID@1200,1700 [facility] Last Admin: 01/03/18 14:21 Dose: 325 mg Finasteride (Proscar) 5 mg PO HS [facility] Last Admin: 01/02/18 20:25 Dose: 5 mg Furosemide (Lasix) 20 mg PO DAILY [facility] Last Admin: 01/03/18 10:41 Dose: 20 mg Glucagon (Glucagon Inj) 1 mg OTHER PRN PRN PRN Reason: for Hypoglycemia Protocol Glyburide (Diabeta) 2.5 mg PO BIDPC [facility] Last Admin: 12/22/17 17:44 Dose: 2.5 mg Hydrochlorothiazide (Hydrodiuril) 25 mg PO DAILY [facility] Last Admin: 01/03/18 10:40 Dose: 25 mg Lactulose (Lactulose Liq) 30 ml PO DAILY PRN PRN Reason: SEVERE CONSITIPATION Loratadine (Claritin) 10 mg PO DAILY [facility] Last Admin: 01/03/18 10:41 Dose: 10 mg Metformin HCl (Glucophage) 500 mg PO BIDPC [facility] Last Admin: 01/03/18 10:40 Dose: 500 mg Metoprolol Succinate (Toprol Xl) 25 mg PO BID [facility] Last Admin: 01/03/18 10:41 Dose: 25 mg Ondansetron HCl (Zofran Inj) 4 mg IV.PUSH Q6H PRN PRN Reason: NAUSEA OR VOMITING Last Admin: 12/12/17 15:44 Dose: 4 mg Pantoprazole Sodium (Protonix) 40 mg PO DAILY [facility] Last Admin: 01/03/18 10:41 Dose: 40 mg Potassium Chloride (Klor-Con 10) 10 meq PO BID [facility] Last Admin: 01/03/18 10:41 Dose: 10 meq Pravastatin Sodium (Pravachol) 40 mg PO QPM [facility] Last Admin: 01/02/18 17:10 Dose: 40 mg Quetiapine Fumarate (Seroquel) 25 mg PO BID [facility] Last Admin: 01/03/18 10:41 Dose: 25 mg Sennosides (Senokot) 17.2 mg PO Q12H PRN PRN Reason: Moderate Constipation Sodium Chloride (Ns Flush) 2 ml IV.FLUSH BID MARIA M Last Admin: 01/03/18 10:41 Dose: 2 ml Sodium Chloride (Ns Flush) 2 ml IV.FLUSH PRN PRN PRN Reason: FLUSH AFTER USING IV ACCESS Allergies Allergy/AdvReac Type Severity Reaction Status Date / Time Sulfa (Sulfonamide Allergy Blister Verified 12/09/17 10:33 Antibiotics) Home Medications Medication Instructions Recorded Confirmed Type aspirin 81 mg PO QAM 12/09/17 12/09/17 History cyanocobalamin (vitamin B-12) 1,000 mcg PO DAILY 12/09/17 12/09/17 History [Vitamin B-12] docusate sodium [Colace] 100 mg PO DAILY PRN 12/09/17 12/09/17 History dutasteride [Avodart] 0.5 mg PO HS 12/09/17 12/09/17 History fluticasone [Flonase Allergy 2 spray INTRANASAL HS 12/09/17 12/09/17 History Relief] furosemide [Lasix] 20 mg PO DAILY 12/09/17 12/09/17 History glyburide-metformin 1 tab PO BID 12/09/17 12/09/17 History hydrochlorothiazide 25 mg PO QAM 12/09/17 12/09/17 History inulin 2 tab PO HS 12/09/17 12/09/17 History loratadine [Claritin] 10 mg PO QAM 12/09/17 12/09/17 History metoprolol succinate 25 mg PO BID 12/09/17 12/09/17 History fofsnqns-ypm-JU-lycopen-lutein 1 tab PO QPM 12/09/17 12/09/17 History [Centrum Silver] nitroglycerin 0.4 mg SUBLINGUAL Q5-15M PRN 12/09/17 12/09/17 History omeprazole 40 mg PO QAM 12/09/17 12/09/17 History potassium chloride [Klor-Con 10] 10 meq PO BID 12/09/17 12/09/17 History pravastatin 40 mg PO QPM 12/09/17 12/09/17 History rivaroxaban [Xarelto] 15 mg PO QPM 12/09/17 12/09/17 History silodosin [Rapaflo] 4 mg PO DAILY PRN 12/09/17 12/09/17 History temazepam [Restoril] 15 mg PO HS PRN 12/09/17 12/09/17 History Physical Exam Vital Signs: Vital Signs - 24 hr 01/02/18 15:00 01/02/18 16:00 01/02/18 16:01 Temperature 98 F Pulse Rate 88 85 86 Respiratory Rate 25 H 37 H 19 Blood Pressure 154/85 H 147/69 H Pulse Oximetry 97 99 99 01/02/18 18:00 01/02/18 20:00 01/02/18 21:27 Temperature Pulse Rate 85 93 H Respiratory Rate Blood Pressure Pulse Oximetry 95 01/02/18 22:00 01/02/18 22:20 01/03/18 00:00 Temperature 97.9 F Pulse Rate 92 H 92 H 85 Respiratory Rate 19 Blood Pressure 153/92 H 156/86 H Pulse Oximetry 98 01/03/18 04:00 01/03/18 08:00 01/03/18 12:00 Temperature 97.8 F 97.9 F 97.8 F Pulse Rate 88 90 85 Respiratory Rate 20 18 18 Blood Pressure 181/80 H 181/71 H 156/73 H Pulse Oximetry 97 94 L 97 I&O: Intake & Output 01/01/18 01/02/18 01/03/18 01/04/18 06:59 06:59 06:59 06:59 Intake Total 237 / 237 1397 / 1397 750 / 750 Output Total 900 / 900 1425 / 1425 Balance 237 / 237 497 / 497 -675 / -675 Weight 79.6 kg 70.5 kg 70.6 kg Physical Exam: CONSTITUTIONAL/GENERAL: This is an adequately nourished patient, in no apparent distress. TUBES/LINES/DRAINS:PIV, Rhino Rocket to right NARE, bilateral upper extremity soft restraints SKIN: Bruise to right eye with Steri-Strips to right eyelid. Ecchymosis to bilateral upper extremities. Not diaphoretic. HEAD: Atraumatic. Normocephalic. EYES: Pupils equal and round and reactive. Bruise to the right eyelid. No injection or drainage. Fundi not examined. ENT: Hearing grossly normal. Nose without bleeding or purulent drainage. Moist oral mucosa NECK: Trachea midline. Supple, nontender. CARDIOVASCULAR: Regular rate and rhythm without murmurs, gallops, or rubs. No JVD. Peripheral pulses symmetric. RESPIRATORY/CHEST: Symmetric, unlabored respirations. Clear to auscultation. Breath sounds equal bilaterally. No wheezes, rales, or rhonchi. GASTROINTESTINAL: Abdomen soft, non-tender, nondistended. No guarding. Bowel sounds present. GENITOURINARY: Without palpable bladder distension. MUSCULOSKELETAL: Extremities without clubbing, cyanosis, or edema. No joint tenderness or effusion noted. No calf tenderness. No mottling or clubbing. LYMPHATICS: No palpable cervical or supraclavicular adenopathy. NEURO: Lethargic, mumbling incomprehensible words. Not following commands. Spontaneously moving all 4 extremities. PSYCHIATRIC: No obvious anxiety/depression. no apparent hallucinations or other psychotic thought process. Diagnostic Tests Laboratory: Laboratory Results - last 72 hr 12/12/17 12/31/17 12/31/17 13:57 15:24 17:07 WBC RBC Hgb 8.2 L Hct 26.3 L MCV MCH MCHC RDW Plt Count MPV PT INR APTT Fibrinogen Sodium Potassium Chloride Carbon Dioxide Anion Gap BUN Creatinine Estimated GFR POC Glucose 210 H Random Glucose Calcium Phosphorus Magnesium Nasal Screen MRSA (PCR) Blood Type Antibody Screen MTS Gel Crossmatch See Detail 12/31/17 12/31/17 01/01/18 20:08 21:08 05:19 WBC 7.0 RBC 3.32 L Hgb 8.3 L 8.1 L Hct 26.8 L 26.0 L MCV 78.2 L MCH 24.3 L MCHC 31.0 L RDW 20.7 H Plt Count 243 MPV 8.6 PT INR APTT Fibrinogen Sodium Potassium Chloride Carbon Dioxide Anion Gap BUN Creatinine Estimated GFR POC Glucose 243 H Random Glucose Calcium Phosphorus Magnesium Nasal Screen MRSA (PCR) Blood Type Antibody Screen MTS Gel Crossmatch 01/01/18 01/01/18 01/01/18 05:19 09:41 16:09 WBC RBC Hgb Hct MCV MCH MCHC RDW Plt Count MPV PT 14.6 H INR 1.4 APTT 23.8 Fibrinogen Sodium 142 Potassium 3.5 Chloride 105 Carbon Dioxide 31.7 Anion Gap 5 BUN 42 H Creatinine 0.96 Estimated GFR 75 L POC Glucose 209 H Random Glucose 202 H Calcium 9.7 Phosphorus Magnesium Nasal Screen MRSA (PCR) Blood Type Antibody Screen MTS Gel Crossmatch 01/01/18 01/01/18 01/01/18 16:09 17:09 17:14 WBC 7.8 RBC 2.81 L Hgb 6.9 L* Hct 22.3 L MCV 79.6 L MCH 24.7 L MCHC 31.0 L RDW 20.4 H Plt Count 273 MPV 8.1 PT INR APTT Fibrinogen Sodium Potassium Chloride Carbon Dioxide Anion Gap BUN Creatinine Estimated GFR POC Glucose 273 H Random Glucose Calcium Phosphorus Magnesium Nasal Screen MRSA (PCR) Blood Type O Positive Antibody Screen Negative MTS Gel Crossmatch See Detail 01/01/18 01/01/18 01/01/18 17:40 18:00 18:00 WBC RBC Hgb Hct MCV MCH MCHC RDW Plt Count MPV PT INR APTT 23.8 Fibrinogen 279 Sodium Potassium Chloride Carbon Dioxide Anion Gap BUN Creatinine Estimated GFR POC Glucose Random Glucose Calcium Phosphorus Magnesium Nasal Screen MRSA (PCR) Not detected Blood Type Antibody Screen MTS Gel Crossmatch 01/01/18 01/02/18 01/02/18 21:32 03:35 03:35 WBC 8.4 RBC 3.44 L Hgb 8.7 L Hct 27.3 L MCV 79.4 L MCH 25.3 L MCHC 31.9 L RDW 18.9 H Plt Count 223 MPV 8.4 PT 14.0 H INR 1.4 APTT 25.2 Fibrinogen Sodium Potassium Chloride Carbon Dioxide Anion Gap BUN Creatinine Estimated GFR POC Glucose 290 H Random Glucose Calcium Phosphorus Magnesium Nasal Screen MRSA (PCR) Blood Type Antibody Screen MTS Gel Crossmatch 01/02/18 01/02/18 01/02/18 03:35 07:32 10:45 WBC RBC Hgb 9.0 L Hct 27.1 L MCV MCH MCHC RDW Plt Count MPV PT INR APTT Fibrinogen Sodium 143 Potassium 3.9 Chloride 107 Carbon Dioxide 31.8 Anion Gap 4 L BUN 57 H Creatinine 1.03 Estimated GFR 69 L POC Glucose 247 H Random Glucose 274 H Calcium 9.5 Phosphorus 2.9 Magnesium 1.9 Nasal Screen MRSA (PCR) Blood Type Antibody Screen MTS Gel Crossmatch 01/02/18 01/02/18 01/02/18 12:30 16:22 17:04 WBC RBC Hgb 8.9 L Hct 26.3 L MCV MCH MCHC RDW Plt Count MPV PT INR APTT Fibrinogen Sodium Potassium Chloride Carbon Dioxide Anion Gap BUN Creatinine Estimated GFR POC Glucose 336 H 327 H Random Glucose Calcium Phosphorus Magnesium Nasal Screen MRSA (PCR) Blood Type Antibody Screen MTS Gel Crossmatch 01/02/18 01/02/18 01/03/18 20:56 23:49 04:08 WBC 9.9 RBC 3.31 L Hgb 8.5 L 8.4 L Hct 26.6 L 26.4 L MCV 79.7 L MCH 25.4 L MCHC 31.8 L RDW 19.4 H Plt Count 209 MPV 8.3 PT INR APTT Fibrinogen Sodium Potassium Chloride Carbon Dioxide Anion Gap BUN Creatinine Estimated GFR POC Glucose 376 H Random Glucose Calcium Phosphorus Magnesium Nasal Screen MRSA (PCR) Blood Type Antibody Screen MTS Gel Crossmatch 01/03/18 01/03/18 01/03/18 04:08 04:08 04:16 WBC RBC Hgb Hct MCV MCH MCHC RDW Plt Count MPV PT 13.5 H INR 1.3 APTT 24.6 Fibrinogen Sodium 146 H Potassium 3.7 Chloride 108 H Carbon Dioxide 32.2 H Anion Gap 6 BUN 43 H Creatinine 1.05 Estimated GFR 68 L POC Glucose 333 H Random Glucose 311 H Calcium 9.6 Phosphorus 2.6 Magnesium 1.7 Nasal Screen MRSA (PCR) Blood Type Antibody Screen MTS Gel Crossmatch 01/03/18 10:46 WBC RBC Hgb Hct MCV MCH MCHC RDW Plt Count MPV PT INR APTT Fibrinogen Sodium Potassium Chloride Carbon Dioxide Anion Gap BUN Creatinine Estimated GFR POC Glucose 327 H Random Glucose Calcium Phosphorus Magnesium Nasal Screen MRSA (PCR) Blood Type Antibody Screen MTS Gel Crossmatch Result Diagrams: 01/04/18 05:31 01/04/18 05:31 Imaging: Cerebral Angiography 12/12/17 00:00 CONCLUSION: 1. Successful embolization of the vascular bed supplying the posterior nasopharynx. The patient tolerated the procedure well. At the conclusion of the procedure there was no evidence of active bleeding. Head CTA 12/18/17 00:00 CONCLUSION: 1. Negative CTA Head. . Neck CTA 12/18/17 00:00 CONCLUSION: 1. Negative CTA Carotid. Head MRI 12/18/17 00:40 CONCLUSION: 1. Left cerebral and cerebellar as well as right cerebellar acute infarcts. 2. Atrophy and white matter disease. Head MRA 12/18/17 00:40 CONCLUSION: 1. Negative MRA [place] ([place]) non contrast. Head CT 12/30/17 00:06 CONCLUSION: 1. Subacute bilateral cerebellar hemisphere infarcts and left posterior cerebral hemisphere infarct again seen. There has been some interval development of hemorrhagic change within the left cerebellar infarct and left posterior cerebral infarct when compared to the prior CT 12/22/2017. Mild mass effect but no midline shift. 2. No other acute intracranial hemorrhage seen. 3. Right-sided frontal scalp/periorbital scalp hematoma. . Procedures: 12/12/17-cerebral angiogram-Angiography of the right carotid circulation. Angiography of the right internal maxillary artery. PVA embolization of the right internal maxillary artery. 12/12/17-angiography of the left carotid circulation. Angiography of the left internal maxillary. PVA embolization of the distal left internal maxillary circulation. Patient/Family Conference Issues Discussed: * Palliative care role, purpose, approach * Additional medical, psychosocial, and spiritual history * Patients general health, functional status, and cognitive changes in the months leading up to the current hospitalization * Patient/family understanding of the current medical problems * Patient/family understanding of prognosis * Patients goals of care as best understood from advance directives and/or conversations and/or values * Current medical treatment options and benefits/burdens of those options * Likely scenarios comparing ongoing aggressive care with a transition to comfort measures only * Questions answered to the best of my ability * Palliative care contact information provided Assessment and Plan - Disease Oriented Problem List (1) Coronary artery disease (2) Atrial fibrillation (3) Diabetes mellitus (4) Epistaxis (5) Anemia, iron deficiency Pertinent Non-Medical Issues: Psychosocial: Patient is . Spiritual: Islam Legal: Ethical issues impacting care: None identified at this time. . Important Contacts: Spouse-Britney Larkin-[phone] Prognosis: Mr Larkin is an 82-year-old male with a medical history of atrial fibrillation on chronic anticoagulation, Xarelto, coronary artery disease s/p CABG, hypertension, diabetes, high cholesterol, gastritis, colon polyps, iron deficiency anemia and osteoarthritis. Patient was transferred from [facility] emergency room in [place] to [place] emergency room on 12/09/17 for evaluation by ENT after he presented earlier on at [facility] with complaints of spontaneous nosebleed. 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 Given ongoing multiple comorbidities, patient remains at high risk for further complications, deterioration and decline. . Code Status: No Code DNR Plan: PLAN: Legal decision maker: Patient is currently confused and recently had bilateral cerebellar strokes. Patient is . According to [place] statute , his spouse Chaya Tan would serve as his health care proxy decision maker. Goals: No family at bedside and unable to reach patient`s spouse by telephone. Will plan a meeting with patient`s spouse when she returns call to discuss goals of medical treatment. CODE STATUS: No code DNR SYMPTOMS: * Pain: Patient has a history of osteoarthritis and it is reported that he has been complaining of back pain. Patient may also have pain from bedbound status , hematoma to right eye from fall. Currently not showing any signs of pain. Tylenol 650 mg every 4 hours available. * Altered mental status: Patient recently had bilateral cerebellar strokes. Neurology following. * Physical deconditioning: Progressive. Patient is here with persistent epistaxis, recent bilateral cerebellar strokes. Patient is currently lethargic , and he is altered mental status. Physical therapy consulted, patient is poor trunk control and decreased muscle strength. PT recommending rehab Palliative care will continue to follow the patient during hospital course as condition evolves, to assist patient/decision-maker with understanding of their medical conditions, weighing benefits/burdens of treatment options, for clarification of goals of treatment. Additionally will assist with any symptoms of palliative concern Appreciation Thank you for the opportunity to participate in the care of Michael Larkin. Attestation Attestation: To help prompt me to consider important information that might be impacting today's encounter and assessment, information from prior notes written by myself or my colleagues may have been "brought forward" into today's note. My signature on this note, however, is an attestation that I personally performed the exam, history, and/or decision-making noted today, and, unless otherwise indicated, the interactions with patient, family, and staff as well as the review of records all occurred today. I also attest that the listed assessment and stated plan reflect my best clinical judgment today based on the combination of historical information, prior notes, and today's exam/ interactions. When time spent is documented, it refers only to time spent today by the signer, or if indicated, combined time spent today by collaborating physician/nurse practitioner.
--- NOTE | 2018-01-03 17:49 | P.PNIM ---
Subjective Interval history: Late entry. Patient seen around 3 PM. He remains combative, not verbalizing and does not follow commands. He requires restraints. Extensive discussion with the patient's at bedside detailed below. Physical Exam Vital signs: Vital Signs 01/02/18 18:00 01/02/18 20:00 01/02/18 21:27 Temperature Pulse Rate 85 93 H Respiratory Rate Blood Pressure Pulse Oximetry 95 01/02/18 22:00 01/02/18 22:20 01/03/18 00:00 Temperature 97.9 F Pulse Rate 92 H 92 H 85 Respiratory Rate 19 Blood Pressure 153/92 H 156/86 H Pulse Oximetry 98 01/03/18 04:00 01/03/18 08:00 01/03/18 12:00 Temperature 97.8 F 97.9 F 97.8 F Pulse Rate 88 90 85 Respiratory Rate 20 18 18 Blood Pressure 181/80 H 181/71 H 156/73 H Pulse Oximetry 97 94 L 97 Intake & Output 01/02/18 01/03/18 01/03/18 18:59 06:59 18:59 Intake Total 750 / 750 Output Total 775 / 775 650 / 650 Balance -25 / -25 -650 / -650 Weight 70.6 kg Intake: Oral 750 / 750 Output: Urine Amount (Catheter) 775 / 775 650 / 650 Condom 775 / 775 650 / 650 Other: # Voids 2 Date of Last Bowel Movement 01/02/18 01/02/18 # Bowel Movements 0 Narrative: GENERAL: Elderly male lying in bed, confused HEENT: right nare is packed with rhino rocket. No blood noted. CARDIOVASCULAR: Normal rate and Irregular rhythm RESPIRATORY: Clear to auscultation anteriorly. GASTROINTESTINAL: Abdomen soft, non-tender, nondistended. no guarding. MUSCULOSKELETAL: Extremities without clubbing, cyanosis, or edema. NEURO: Confused. Requires restraint. Does not follow commands. Move all extremities spontaneously. - Urinary Catheter Management Condom Cath placed during this visit: no Results - Labs CBC & Chem 7: 01/03/18 04:08 01/03/18 04:08 Laboratory Results - last 24 hr 01/02/18 01/02/18 01/02/18 17:04 20:56 23:49 WBC RBC Hgb 8.5 L Hct 26.6 L MCV MCH MCHC RDW Plt Count MPV PT INR APTT Sodium Potassium Chloride Carbon Dioxide Anion Gap BUN Creatinine Estimated GFR POC Glucose 327 H 376 H Random Glucose Calcium Phosphorus Magnesium 01/03/18 01/03/18 01/03/18 04:08 04:08 04:08 WBC 9.9 RBC 3.31 L Hgb 8.4 L Hct 26.4 L MCV 79.7 L MCH 25.4 L MCHC 31.8 L RDW 19.4 H Plt Count 209 MPV 8.3 PT 13.5 H INR 1.3 APTT 24.6 Sodium 146 H Potassium 3.7 Chloride 108 H Carbon Dioxide 32.2 H Anion Gap 6 BUN 43 H Creatinine 1.05 Estimated GFR 68 L POC Glucose Random Glucose 311 H Calcium 9.6 Phosphorus 2.6 Magnesium 1.7 01/03/18 01/03/18 01/03/18 04:16 10:46 15:04 WBC RBC Hgb Hct MCV MCH MCHC RDW Plt Count MPV PT INR APTT Sodium Potassium Chloride Carbon Dioxide Anion Gap BUN Creatinine Estimated GFR POC Glucose 333 H 327 H 348 H Random Glucose Calcium Phosphorus Magnesium - Procedures 12/12/17Angio with embolization of the Left distal IMax territory, performed by IR Dr. Schultz Assessment and Plan - Assessment (1) CVA (cerebral vascular accident) Code(s): I63.9 - Cerebral infarction, unspecified Status: Acute (2) Epistaxis Code(s): R04.0 - Epistaxis Status: Acute (3) Anemia due to blood loss Code(s): D50.0 - Iron deficiency anemia secondary to blood loss (chronic) Status: Acute (4) Anemia, iron deficiency Code(s): D50.9 - Iron deficiency anemia, unspecified Status: Chronic (5) Atrial fibrillation with controlled ventricular rate Code(s): I48.91 - Unspecified atrial fibrillation Status: Chronic - Plan 82-year-old white male with a history of chronic atrial fibrillation on home Xarelto, coronary artery disease, hypertension presented to the [facility] emergency room with spontaneous nosebleed and was transferred here for ENT evaluation. During the course of the hospitalization, patient developed ischemic CVA. He has had recurrent epistaxis with severe bleeding requiring blood transfusion. Patient also had embolization but bleeding still recurs. At this point IR cannot offer anything else and ENT recommends transfer to a tertiary care center if the bleeding persists. Patient has competing needs including anticoagulation but he experienced significant bleeding. I had an extensive discussion with the patient's . She is certain that given his worsening mental status, he would not want to pursue any further aggressive care and she requested DNR status and to transition him to comfort care. Palliative care previously consulted. Hospice has been consulted. Recurrent spontaneous epistaxis: secondary to Xarelto/aspirin use. Patient is status post left internal maxillary embolization as well as right IMAX embolization due to persistent bleeding. - Xarelto previously stopped. Aspirin also on hold since yesterday. However epistaxis persisting. Resolved yesterday but recurred today. 12/31/17 and 01/01 recurrent epistaxis. I discussed the case with the on-call interventional radiologist Dr. Locke on 12/31. He reviewed the films of the previous embolization and procedure notes. He noted there is nothing else that can be offered from IR standpoint. - Appreciate ENT input. Patient had rhino rocket placed on the right on 01/01. Continued to have significant epistaxis and Transferred to ICU the night of . 01/02: Bleeding seems to resolve. rhino rocket in place. Continue. H&H stable post transfusion. ENT plans to remove Rhino Rocket on Wednesday No further active bleeding at this point but still remain at high risk given his history of recurrent bleeding here. Acute infarcts of the left cerebellum and in the left posterior cerebral artery distribution as well as right cerebellum Neurology recommendations appreciated MRI Brain with finding of Left cerebral and cerebellar as well as right cerebellar acute infarcts. Repeat Head CT 12/21/17 with Involving strokes cerebellar hemispheres left greater than right 2D echo with EF 50% Continue ASA, statin. Oral anticoagulation treatment currently contraindicated due to recent episode of epistaxis requiring interventions Continue with PT/OT Repeat CT on 12/30 after a fall revealed evolving stroke with hemorrhagic components. Appreciate Neurologist input. Continue to hold anticoagulation at this point. Aspirin on hold due to persistent and recurrent bleeding. Metabolic and toxic encephalopathy due to acute CVA Continue to monitor. -Seroquel 25 mg twice daily for agitation. Acute on chronic iron deficiency anemia and acute blood loss anemia: due to spontaneous nosebleed. Patient reports long hx of iron deficiency. - S/P PRBC transfusion. -Follow H&H. 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 -Aspirin was held due to epistaxis -continue home metoprolol Atrial fibrillation: chronic, rate controlled -home Xarelto on hold due to severe epistaxis and anemia, continue home metoprolol Diabetes mellitus type 2: chronic Hypoglycemic readings 12/22 - no further hypoglycemic readings -Monitor Accu-checks and cover with SSI metformin twice daily DVT prophylaxisbilateral SCDs, no anticoagulation due to bleed/anemia Discharge Planning: Hospice consulted. (4) Anemia, iron deficiency Qualifiers: Iron deficiency anemia type: unspecified iron deficiency Qualified Code(s): D50.9 - Iron deficiency anemia, unspecified
[2018-01-03] MEDS: Finasteride 5 MG Tablet PO SCH (21:53)
[2018-01-04 07:20] LABS: Activated Partial Thrombo Time 24.5 sec (23.4-31.7); INR 1.3 Ratio
[2018-01-04 07:23] LABS: Hematocrit 29.7 % (39.0-51.0); Hemoglobin 9.4 gm/dL (13.0-17.0); Mean Corpuscular HGB Conc 31.5 % (32.0-36.0); Mean Corpuscular Hemoglobin 25.6 pg (27.0-34.0); Mean Corpuscular Volume 81.4 fL (80.0-100.0); Mean Platelet Volume 8.8 fL (7.0-11.0); Platelet Count 230 th/mm3 (150-450); Red Blood Count 3.65 mil/mm3 (4.50-5.90); Red Cell Distribution Width 20.3 % (11.6-17.2); White Blood Count 9.1 th/mm3 (4.0-11.0)
[2018-01-04 07:40] LABS: Calcium 10.3 mg/dL (8.5-10.1); Carbon Dioxide 30.6 meq/L (21.0-32.0); Phosphorus 2.5 mg/dL (2.5-4.9); Potassium 3.6 meq/L (3.5-5.1)
[2018-01-04] MEDS: hydroCHLOROthiazide 25 MG Tablet PO SCH (10:53)
[2018-01-04] MEDS: Loratadine 10 MG Tablet PO SCH (10:54)
[2018-01-04] MEDS: Furosemide 20 MG Tablet PO SCH (10:54)
[2018-01-04] MEDS: QUEtiapine 25 MG Tablet PO SCH ×2 (10:54→21:17)
[2018-01-04] MEDS: Sodium Chloride 0.9% 2 ML Flush BID IV.FLUSH SCH ×2 (10:55→21:09)
--- NOTE | 2018-01-04 13:06 | P.PNPAL ---
Reason for Visit Reason for visit: a. To assist with evaluation and management of symptoms including: Pain, altered mental status, physical deconditioning. b. To assist medical decision maker(s) with: better understanding of current medical conditions; weighing benefits/burdens of medical treatment options; making medical treatment decisions. Subjective Subjective/Interval History: Follow up medically necessary to discuss goals of medical treatment with patient `s spouse. Patient seen and examined in his room in the presence of his Britney Larkin. Patient remains lethargic, confused and in bilateral upper extremity soft restraints. Met with patient and spouse Britney Larkin, introduced palliative care. Patient spouse has decided to transition patient to comfort care only through hospice services. Hospice service consulted yesterday. Patient`s spouse would like to be transferred to a hospice care center in [place]. Family/Friend Interactions: See interval note. Advance Directives Living Will: Never completed Health Care Surrogate: Never completed Durable Power of Customer Development Manager: Never completed Health Care Surrogate Name and Number: HCP: Spouse-Chaya Tan [phone] Objective Vital Signs: Vital Signs 01/03/18 16:00 01/03/18 19:30 01/03/18 20:00 Temperature 97.8 F 98.5 F Pulse Rate 88 80 80 Respiratory Rate 18 18 Blood Pressure 147/91 H 172/84 H Pulse Oximetry 95 96 01/04/18 00:00 01/04/18 04:00 01/04/18 04:17 Temperature 98.0 F 97.8 F Pulse Rate 93 H 108 H 91 H Respiratory Rate 16 18 Blood Pressure 151/84 H 153/84 H Pulse Oximetry 95 88 L 01/04/18 08:00 01/04/18 08:54 Temperature 98.5 F Pulse Rate 54 L Respiratory Rate 20 Blood Pressure 155/84 H Pulse Oximetry 95 99 Intake & Output 01/03/18 01/04/18 01/04/18 18:59 06:59 18:59 Intake Total 600 / 600 250 / 250 Balance 600 / 600 250 / 250 Weight 65.1 kg Intake: Oral 600 / 600 250 / 250 Other: # Voids 1 # Incontinent Voids 4 Date of Last Bowel Movement 01/02/18 01/02/18 01/02/18 # Bowel Movements 0 # Incontinent Bowel Movements 1 Physical Exam: CONSTITUTIONAL/GENERAL: This is an elderly patient, in no apparent distress. TUBES/LINES/DRAINS:PIV, bilateral upper extremity soft restraints SKIN: Bruise to right eye with Steri-Strips to right eyelid. Ecchymosis to bilateral upper extremities. Not diaphoretic. HEAD: Atraumatic. Normocephalic. EYES: Pupils equal and round and reactive. Extraocular motions intact. No scleral icterus. No injection or drainage. Fundi not examined. ENT: Hearing grossly normal. Nose without bleeding or purulent drainage. Moist oral mucosa NECK: Trachea midline. Supple, nontender. CARDIOVASCULAR: Regular rate and rhythm without murmurs, gallops, or rubs. No JVD. Peripheral pulses symmetric. RESPIRATORY/CHEST: Symmetric, unlabored respirations. Diminished breath sounds. No wheezes, rales, or rhonchi. GASTROINTESTINAL: Abdomen soft, non-tender, nondistended. No guarding. Bowel sounds present. GENITOURINARY: Without palpable bladder distension. MUSCULOSKELETAL: Extremities without clubbing, cyanosis, or edema. No joint tenderness or effusion noted. No calf tenderness. No mottling or clubbing. LYMPHATICS: Did not assess NEUROLOGICAL: Lethargic. Confused. Patient seldomly mumbling incomprehensible words. Spontaneously moving all 4 extremities and not following commands. PSYCHIATRIC: No obvious anxiety/depression. no apparent hallucinations or other psychotic thought process. Diagnostic Tests Laboratory: Laboratory Results - last 72 hr 12/12/17 01/01/18 01/01/18 13:57 16:09 16:09 WBC 7.8 RBC 2.81 L Hgb 6.9 L* Hct 22.3 L MCV 79.6 L MCH 24.7 L MCHC 31.0 L RDW 20.4 H Plt Count 273 MPV 8.1 PT 14.6 H INR 1.4 APTT 23.8 Fibrinogen Sodium Potassium Chloride Carbon Dioxide Anion Gap BUN Creatinine Estimated GFR POC Glucose Random Glucose Calcium Phosphorus Magnesium Nasal Screen MRSA (PCR) Blood Type Antibody Screen MTS Gel Crossmatch See Detail 01/01/18 01/01/18 01/01/18 17:09 17:14 17:40 WBC RBC Hgb Hct MCV MCH MCHC RDW Plt Count MPV PT INR APTT Fibrinogen Sodium Potassium Chloride Carbon Dioxide Anion Gap BUN Creatinine Estimated GFR POC Glucose 273 H Random Glucose Calcium Phosphorus Magnesium Nasal Screen MRSA (PCR) Not detected Blood Type O Positive Antibody Screen Negative MTS Gel Crossmatch See Detail 01/01/18 01/01/18 01/01/18 18:00 18:00 21:32 WBC RBC Hgb Hct MCV MCH MCHC RDW Plt Count MPV PT INR APTT 23.8 Fibrinogen 279 Sodium Potassium Chloride Carbon Dioxide Anion Gap BUN Creatinine Estimated GFR POC Glucose 290 H Random Glucose Calcium Phosphorus Magnesium Nasal Screen MRSA (PCR) Blood Type Antibody Screen MTS Gel Crossmatch 01/02/18 01/02/18 01/02/18 03:35 03:35 03:35 WBC 8.4 RBC 3.44 L Hgb 8.7 L Hct 27.3 L MCV 79.4 L MCH 25.3 L MCHC 31.9 L RDW 18.9 H Plt Count 223 MPV 8.4 PT 14.0 H INR 1.4 APTT 25.2 Fibrinogen Sodium 143 Potassium 3.9 Chloride 107 Carbon Dioxide 31.8 Anion Gap 4 L BUN 57 H Creatinine 1.03 Estimated GFR 69 L POC Glucose Random Glucose 274 H Calcium 9.5 Phosphorus 2.9 Magnesium 1.9 Nasal Screen MRSA (PCR) Blood Type Antibody Screen MTS Gel Crossmatch 01/02/18 01/02/18 01/02/18 07:32 10:45 12:30 WBC RBC Hgb 9.0 L Hct 27.1 L MCV MCH MCHC RDW Plt Count MPV PT INR APTT Fibrinogen Sodium Potassium Chloride Carbon Dioxide Anion Gap BUN Creatinine Estimated GFR POC Glucose 247 H 336 H Random Glucose Calcium Phosphorus Magnesium Nasal Screen MRSA (PCR) Blood Type Antibody Screen MTS Gel Crossmatch 01/02/18 01/02/18 01/02/18 16:22 17:04 20:56 WBC RBC Hgb 8.9 L Hct 26.3 L MCV MCH MCHC RDW Plt Count MPV PT INR APTT Fibrinogen Sodium Potassium Chloride Carbon Dioxide Anion Gap BUN Creatinine Estimated GFR POC Glucose 327 H 376 H Random Glucose Calcium Phosphorus Magnesium Nasal Screen MRSA (PCR) Blood Type Antibody Screen MTS Gel Crossmatch 01/02/18 01/03/18 01/03/18 23:49 04:08 04:08 WBC 9.9 RBC 3.31 L Hgb 8.5 L 8.4 L Hct 26.6 L 26.4 L MCV 79.7 L MCH 25.4 L MCHC 31.8 L RDW 19.4 H Plt Count 209 MPV 8.3 PT INR APTT Fibrinogen Sodium 146 H Potassium 3.7 Chloride 108 H Carbon Dioxide 32.2 H Anion Gap 6 BUN 43 H Creatinine 1.05 Estimated GFR 68 L POC Glucose Random Glucose 311 H Calcium 9.6 Phosphorus 2.6 Magnesium 1.7 Nasal Screen MRSA (PCR) Blood Type Antibody Screen MTS Gel Crossmatch 01/03/18 01/03/18 01/03/18 04:08 04:16 10:46 WBC RBC Hgb Hct MCV MCH MCHC RDW Plt Count MPV PT 13.5 H INR 1.3 APTT 24.6 Fibrinogen Sodium Potassium Chloride Carbon Dioxide Anion Gap BUN Creatinine Estimated GFR POC Glucose 333 H 327 H Random Glucose Calcium Phosphorus Magnesium Nasal Screen MRSA (PCR) Blood Type Antibody Screen MTS Gel Crossmatch 01/03/18 01/03/18 01/03/18 15:04 18:23 20:55 WBC RBC Hgb Hct MCV MCH MCHC RDW Plt Count MPV PT INR APTT Fibrinogen Sodium Potassium Chloride Carbon Dioxide Anion Gap BUN Creatinine Estimated GFR POC Glucose 348 H 288 H 321 H Random Glucose Calcium Phosphorus Magnesium Nasal Screen MRSA (PCR) Blood Type Antibody Screen MTS Gel Crossmatch 01/04/18 01/04/18 01/04/18 05:31 05:31 05:31 WBC 9.1 RBC 3.65 L Hgb 9.4 L Hct 29.7 L MCV 81.4 MCH 25.6 L MCHC 31.5 L RDW 20.3 H Plt Count 230 MPV 8.8 PT 13.0 H INR 1.3 APTT 24.5 Fibrinogen Sodium 144 Potassium 3.6 Chloride 107 Carbon Dioxide 30.6 Anion Gap 6 BUN 33 H Creatinine 0.99 Estimated GFR 72 L POC Glucose Random Glucose 244 H Calcium 10.3 H Phosphorus 2.5 Magnesium 2.0 Nasal Screen MRSA (PCR) Blood Type Antibody Screen MTS Gel Crossmatch 01/04/18 11:08 WBC RBC Hgb Hct MCV MCH MCHC RDW Plt Count MPV PT INR APTT Fibrinogen Sodium Potassium Chloride Carbon Dioxide Anion Gap BUN Creatinine Estimated GFR POC Glucose 256 H Random Glucose Calcium Phosphorus Magnesium Nasal Screen MRSA (PCR) Blood Type Antibody Screen MTS Gel Crossmatch Result Diagrams: 01/04/18 05:31 01/04/18 05:31 Imaging: Cerebral Angiography 12/12/17 00:00 CONCLUSION: 1. Successful embolization of the vascular bed supplying the posterior nasopharynx. The patient tolerated the procedure well. At the conclusion of the procedure there was no evidence of active bleeding. Head CTA 12/18/17 00:00 CONCLUSION: 1. Negative CTA Head. . Neck CTA 12/18/17 00:00 CONCLUSION: 1. Negative CTA Carotid. Head MRI 12/18/17 00:40 CONCLUSION: 1. Left cerebral and cerebellar as well as right cerebellar acute infarcts. 2. Atrophy and white matter disease. Head MRA 12/18/17 00:40 CONCLUSION: 1. Negative MRA [place] ([place]) non contrast. Head CT 12/30/17 00:06 CONCLUSION: 1. Subacute bilateral cerebellar hemisphere infarcts and left posterior cerebral hemisphere infarct again seen. There has been some interval development of hemorrhagic change within the left cerebellar infarct and left posterior cerebral infarct when compared to the prior CT 12/22/2017. Mild mass effect but no midline shift. 2. No other acute intracranial hemorrhage seen. 3. Right-sided frontal scalp/periorbital scalp hematoma. . Procedures: 12/12/17-cerebral angiogram-Angiography of the right carotid circulation. Angiography of the right internal maxillary artery. PVA embolization of the right internal maxillary artery. 12/12/17-angiography of the left carotid circulation. Angiography of the left internal maxillary. PVA embolization of the distal left internal maxillary circulation. Assessment and Plan - Disease Oriented Problem List (1) Coronary artery disease (2) Atrial fibrillation (3) Diabetes mellitus (4) Epistaxis (5) Anemia, iron deficiency Pertinent Non-Medical Issues: Psychosocial: Patient is originally from [place]. Patient is to his of 59 years. They have 3 adult children who reside in [place]. Patient is retired. 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 Spiritual: Episcopal Legal: Never completed advanced directives Ethical issues impacting care: None identified at this time. . Important Contacts: Spouse-Chaya, [phone] Prognosis: Mr Larkin is an 82-year-old male with a medical history of atrial fibrillation on chronic anticoagulation, Xarelto, coronary artery disease s/p CABG, hypertension, diabetes, high cholesterol, gastritis, colon polyps, iron deficiency anemia and osteoarthritis. Patient was transferred from [facility] emergency room in [place] to [place] emergency room on 12/09/17 for evaluation by ENT after he presented earlier on at [facility] with complaints of spontaneous nosebleed. 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 Given ongoing multiple comorbidities, patient remains at high risk for further complications, deterioration and decline. . Code Status: No Code DNR Plan: PLAN: Legal decision maker: Patient is currently confused and recently had bilateral cerebellar strokes. Patient is . According to [place] statute , his spouse Hopper Britney would serve as his health care proxy decision maker. Goals: Patient`s spouse made patient DNR and has decided to transition patient to comfort care only through hospice services. Patient spouse Britney stated that patient will be transferred to a [facility] in [place]. CODE STATUS: No code DNR SYMPTOMS: * Pain: Patient has a history of osteoarthritis and it is reported that he has been complaining of back pain. Patient may also have pain from bedbound status , hematoma to right eye from fall. Not showing any signs of pain. Tylenol 650 mg every 4 hours available. * Altered mental status: Patient recently had bilateral cerebellar strokes. Neurology following. * Physical deconditioning: Progressive. Patient is here with persistent epistaxis, recent bilateral cerebellar strokes. Patient is currently lethargic , and he is altered mental status. Physical therapy consulted, patient is poor trunk control and decreased muscle strength. PT recommending rehab Palliative care will continue to follow the patient during hospital course as condition evolves, to assist patient/decision-maker with understanding of their medical conditions, weighing benefits/burdens of treatment options, for clarification of goals of treatment. Additionally will assist with any symptoms of palliative concern Attestation Attestation: To help prompt me to consider important information that might be impacting today's encounter and assessment, information from prior notes written by myself or my colleagues may have been "brought forward" into today's note. My signature on this note, however, is an attestation that I personally performed the exam, history, and/or decision-making noted today, and, unless otherwise indicated, the interactions with patient, family, and staff as well as the review of records all occurred today. I also attest that the listed assessment and stated plan reflect my best clinical judgment today based on the combination of historical information, prior notes, and today's exam/ interactions. When time spent is documented, it refers only to time spent today by the signer, or if indicated, combined time spent today by collaborating physician/nurse practitioner.
[2018-01-04] MEDS: Ferrous Sulfate 325 MG Tablet PO SCH ×2 (13:43→18:05)
[2018-01-04] MEDS: Finasteride 5 MG Tablet PO SCH (21:17)
--- NOTE | 2018-01-04 22:58 | P.PNIM ---
Subjective Interval history: Late entry. Patient seen around 4 PM. He remains confused. He pulled out the rhino rocket. He is requiring restraints. Not eating much. Physical Exam Vital signs: Vital Signs 01/04/18 00:00 01/04/18 04:00 01/04/18 04:17 Temperature 98.0 F 97.8 F Pulse Rate 93 H 108 H 91 H Respiratory Rate 16 18 Blood Pressure 151/84 H 153/84 H Pulse Oximetry 95 88 L 01/04/18 08:00 01/04/18 08:54 01/04/18 12:00 Temperature 98.5 F 97.9 F Pulse Rate 90 98 H Respiratory Rate 20 20 Blood Pressure 155/84 H 158/92 H Pulse Oximetry 95 99 95 01/04/18 16:00 Temperature 97.5 F L Pulse Rate 84 Respiratory Rate 20 Blood Pressure 150/75 H Pulse Oximetry 95 Intake & Output 01/04/18 01/04/18 01/05/18 06:59 18:59 06:59 Intake Total 250 / 250 Balance 250 / 250 Weight 65.1 kg Intake: Oral 250 / 250 Other: # Incontinent Voids 4 Date of Last Bowel Movement 01/02/18 01/02/18 # Incontinent Bowel Movements 1 Narrative: GENERAL: Elderly male lying in bed, confused HEENT: No signs of blood in the nares or oropharynx. CARDIOVASCULAR: Normal rate and Irregular rhythm RESPIRATORY: Clear to auscultation anteriorly. GASTROINTESTINAL: Abdomen soft, non-tender, nondistended. no guarding. MUSCULOSKELETAL: Extremities without clubbing, cyanosis, or edema. NEURO: Confused. Requires restraint. Does not follow commands. - Urinary Catheter Management Condom Cath placed during this visit: no Results - Labs CBC & Chem 7: 01/04/18 05:31 01/04/18 05:31 Laboratory Results - last 24 hr 01/04/18 01/04/18 01/04/18 05:31 05:31 05:31 WBC 9.1 RBC 3.65 L Hgb 9.4 L Hct 29.7 L MCV 81.4 MCH 25.6 L MCHC 31.5 L RDW 20.3 H Plt Count 230 MPV 8.8 PT 13.0 H INR 1.3 APTT 24.5 Sodium 144 Potassium 3.6 Chloride 107 Carbon Dioxide 30.6 Anion Gap 6 BUN 33 H Creatinine 0.99 Estimated GFR 72 L POC Glucose Random Glucose 244 H Calcium 10.3 H Phosphorus 2.5 Magnesium 2.0 01/04/18 01/04/18 01/04/18 11:08 14:49 17:16 WBC RBC Hgb Hct MCV MCH MCHC RDW Plt Count MPV PT INR APTT Sodium Potassium Chloride Carbon Dioxide Anion Gap BUN Creatinine Estimated GFR POC Glucose 256 H 333 H 380 H Random Glucose Calcium Phosphorus Magnesium - Procedures 12/12/17Angio with embolization of the Left distal IMax territory, performed by IR Dr. Schultz Assessment and Plan - Assessment (1) CVA (cerebral vascular accident) Code(s): I63.9 - Cerebral infarction, unspecified Status: Acute (2) Epistaxis Code(s): R04.0 - Epistaxis Status: Acute (3) Anemia due to blood loss Code(s): D50.0 - Iron deficiency anemia secondary to blood loss (chronic) Status: Acute (4) Anemia, iron deficiency Code(s): D50.9 - Iron deficiency anemia, unspecified Status: Chronic (5) Atrial fibrillation with controlled ventricular rate Code(s): I48.91 - Unspecified atrial fibrillation Status: Chronic - Plan 82-year-old white male with a history of chronic atrial fibrillation on home Xarelto, coronary artery disease, hypertension presented to the [place] emergency room with spontaneous nosebleed and was transferred here for ENT evaluation. During the course of the hospitalization, patient developed ischemic CVA. He has had recurrent epistaxis with severe bleeding requiring blood transfusion. Patient also had embolization but bleeding still recurs. At this point IR cannot offer anything else and ENT recommends transfer to a tertiary care center if the bleeding persists. Patient has competing needs including anticoagulation but he experienced significant bleeding. ENT placed another rhino rocket and bleeding seems to have stopped but he remains very confused and agitated from the stroke. He pulled out the rhino rocket. At risk for severe bleeding again. I had an extensive discussion with the patient's . She is certain that given his worsening mental status, he would not want to pursue any further aggressive care and she requested DNR status and to transition him to comfort care. Palliative care following and Hospice consulted. Family wants him to return to [facility]. Case management assisting with placement. Continue supportive care. Recurrent spontaneous epistaxis: secondary to Xarelto/aspirin use. Patient is status post left internal maxillary embolization as well as right IMAX embolization due to persistent bleeding. - Xarelto previously stopped. Aspirin also on hold. However epistaxis persisted 12/31/17 and 01/01 recurrent epistaxis. I discussed the case with the on-call interventional radiologist Dr. Locke on 12/31. He reviewed the films of the previous embolization and procedure notes. He noted there is nothing else that can be offered from IR standpoint. - Appreciate ENT input. Patient had rhino rocket placed on the right on 01/01. Continued to have significant epistaxis and Transferred to ICU the night of . 01/02: Bleeding seems to resolve. rhino rocket in place. Continue. H&H stable post transfusion. Patient removed rhino rocket overnight. ENT following and indicated if bleeding recurs he would need to be transferred to [facility] but his refused any further aggressive measures. No further active bleeding at this point but still remain at high risk given his history of recurrent bleeding here. Acute infarcts of the left cerebellum and in the left posterior cerebral artery distribution as well as right cerebellum Neurology recommendations appreciated MRI Brain with finding of Left cerebral and cerebellar as well as right cerebellar acute infarcts. Repeat Head CT 12/21/17 with Involving strokes cerebellar hemispheres left greater than right 2D echo with EF 50% Continue statin. Oral anticoagulation treatment currently contraindicated due to recent episode of epistaxis requiring interventions Continue with PT/OT Repeat CT on 12/30 after a fall revealed evolving stroke with hemorrhagic components. Appreciate Neurologist input. Continue to hold anticoagulation at this point. Aspirin on hold due to persistent and recurrent bleeding. Metabolic and toxic encephalopathy due to acute CVA Continue to monitor. -Seroquel 25 mg twice daily for agitation. Still requiring restraints but being careful not to oversedate him. Acute on chronic iron deficiency anemia and acute blood loss anemia: due to spontaneous nosebleed. Patient reports long hx of iron deficiency. - S/P PRBC transfusion. -Follow H&H. 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 -Aspirin was held due to epistaxis -continue home metoprolol Atrial fibrillation: chronic, rate controlled -home Xarelto on hold due to severe epistaxis and anemia, continue home metoprolol Diabetes mellitus type 2: chronic Hypoglycemic readings 12/22 - no further hypoglycemic readings -Monitor Accu-checks and cover with SSI metformin twice daily DVT prophylaxisbilateral SCDs, no anticoagulation due to bleed/anemia Discharge Planning: Need placement. CM following. SNF with Hospice in [place]. (4) Anemia, iron deficiency Qualifiers: Iron deficiency anemia type: unspecified iron deficiency Qualified Code(s): D50.9 - Iron deficiency anemia, unspecified
--- NOTE | 2018-01-05 07:47 | P.PN ---
Subjective Interval history: Packing out. Family desires noted. Physical Exam Vital signs: Vital Signs 01/04/18 08:00 01/04/18 08:54 01/04/18 12:00 Temperature 98.5 F 97.9 F Pulse Rate 90 98 H Respiratory Rate 20 20 Blood Pressure 155/84 H 158/92 H Pulse Oximetry 95 99 95 01/04/18 16:00 01/04/18 20:00 01/04/18 21:00 Temperature 97.5 F L 98.0 F Pulse Rate 84 94 H 87 Respiratory Rate 20 21 Blood Pressure 150/75 H 149/69 H Pulse Oximetry 95 96 01/05/18 00:00 01/05/18 04:00 01/05/18 04:44 Temperature 98.4 F 97.7 F Pulse Rate 97 H 96 H 95 H Respiratory Rate 16 16 Blood Pressure 146/103 H 162/94 H Pulse Oximetry 95 99 Intake & Output 01/04/18 01/05/18 01/05/18 18:59 06:59 18:59 Weight 66.3 kg Other: Date of Last Bowel Movement 01/02/18 01/02/18 - Urinary Catheter Management Condom Cath placed during this visit: no Results - Labs CBC & Chem 7: 01/04/18 05:31 01/04/18 05:31 Laboratory Results - last 24 hr 01/04/18 01/04/18 01/04/18 11:08 14:49 17:16 POC Glucose 256 H 333 H 380 H 01/05/18 01:11 POC Glucose 300 H - Procedures 12/12/17Angio with embolization of the Left distal IMax territory, performed by IR Dr. Schultz Assessment and Plan - Assessment (1) Epistaxis Code(s): R04.0 - Epistaxis Status: Acute - Plan Packing pulled by patient. Family desires noted requesting no further intervention. Will sign off. Please reconsult as needed.
[2018-01-05 07:53] LABS: Hematocrit 29.1 % (39.0-51.0); Hemoglobin 9.1 gm/dL (13.0-17.0); Mean Corpuscular HGB Conc 31.2 % (32.0-36.0); Mean Corpuscular Hemoglobin 25.5 pg (27.0-34.0); Mean Corpuscular Volume 81.7 fL (80.0-100.0); Mean Platelet Volume 8.8 fL (7.0-11.0); Platelet Count 223 th/mm3 (150-450); Red Blood Count 3.56 mil/mm3 (4.50-5.90); Red Cell Distribution Width 20.4 % (11.6-17.2); White Blood Count 9.5 th/mm3 (4.0-11.0)
[2018-01-05 08:05] LABS: Activated Partial Thrombo Time 25.9 sec (23.4-31.7); INR 1.3 Ratio; Prothrombin Time 13.3 sec (9.8-11.6)
[2018-01-05 08:21] LABS: Calcium 10.1 mg/dL (8.5-10.1); Carbon Dioxide 30.1 meq/L (21.0-32.0); Phosphorus 2.8 mg/dL (2.5-4.9); Potassium 3.3 meq/L (3.5-5.1)
[2018-01-05] MEDS: Insulin NovoLOG Aspart Correctional Sugar Inj SQ SCH ×4 (10:56→21:14)
[2018-01-05] MEDS: hydroCHLOROthiazide 25 MG Tablet PO SCH (10:57)
[2018-01-05] MEDS: Furosemide 20 MG Tablet PO SCH (10:57)
[2018-01-05] MEDS: Loratadine 10 MG Tablet PO SCH (10:58)
[2018-01-05] MEDS: Sodium Chloride 0.9% 2 ML Flush BID IV.FLUSH SCH ×2 (10:58→20:59)
[2018-01-05] MEDS: QUEtiapine 25 MG Tablet PO SCH ×2 (10:58→20:54)
[2018-01-05] MEDS: Ferrous Sulfate 325 MG Tablet PO SCH ×2 (11:05→18:22)
--- NOTE | 2018-01-05 17:09 | P.PNIM ---
Subjective Interval history: Patient sleeping, wakes up for exam. Confused and disoriented. Physical Exam Vital signs: Vital Signs 01/04/18 20:00 01/04/18 21:00 01/05/18 00:00 Temperature 98.0 F 98.4 F Pulse Rate 94 H 87 97 H Respiratory Rate 21 16 Blood Pressure 149/69 H 146/103 H Pulse Oximetry 96 95 01/05/18 04:00 01/05/18 04:44 01/05/18 08:00 Temperature 97.7 F 97.7 F Pulse Rate 96 H 95 H 117 H Respiratory Rate 16 20 Blood Pressure 162/94 H 124/88 Pulse Oximetry 99 100 01/05/18 08:47 01/05/18 12:00 Temperature 97.8 F Pulse Rate 99 H 101 H Respiratory Rate 20 Blood Pressure 149/93 H Pulse Oximetry 97 Intake & Output 01/04/18 01/05/18 01/05/18 18:59 06:59 18:59 Intake Total 240 / 240 Balance 240 / 240 Weight 66.3 kg Intake: Oral 240 / 240 Other: # Incontinent Voids 1 Date of Last Bowel Movement 01/02/18 01/02/18 01/02/18 Narrative: GENERAL: Sleeping, wakes up for exam. Confused and disoriented. SKIN: Warm and dry. HEAD: Normocephalic. EYES: No scleral icterus. No injection or drainage. NECK: Supple, trachea midline. No JVD. CARDIOVASCULAR: Regular rate and rhythm without murmurs, gallops, or rubs. RESPIRATORY: Breath sounds equal bilaterally. No accessory muscle use. GASTROINTESTINAL: Abdomen soft, non-tender, nondistended. MUSCULOSKELETAL: No cyanosis, or edema. BACK: Nontender without obvious deformity. No CVA tenderness. - Urinary Catheter Management Condom Cath placed during this visit: no Results - Labs CBC & Chem 7: 01/05/18 07:02 01/05/18 07:02 Laboratory Results - last 24 hr 01/04/18 01/05/18 01/05/18 17:16 01:11 07:02 WBC 9.5 RBC 3.56 L Hgb 9.1 L Hct 29.1 L MCV 81.7 MCH 25.5 L MCHC 31.2 L RDW 20.4 H Plt Count 223 MPV 8.8 PT INR APTT Sodium Potassium Chloride Carbon Dioxide Anion Gap BUN Creatinine Estimated GFR POC Glucose 380 H 300 H Random Glucose Calcium Phosphorus Magnesium 01/05/18 01/05/18 01/05/18 07:02 07:02 08:25 WBC RBC Hgb Hct MCV MCH MCHC RDW Plt Count MPV PT 13.3 H INR 1.3 APTT 25.9 Sodium 143 Potassium 3.3 L Chloride 107 Carbon Dioxide 30.1 Anion Gap 6 BUN 29 H Creatinine 1.03 Estimated GFR 69 L POC Glucose 246 H Random Glucose 244 H Calcium 10.1 Phosphorus 2.8 Magnesium 2.0 01/05/18 13:45 WBC RBC Hgb Hct MCV MCH MCHC RDW Plt Count MPV PT INR APTT Sodium Potassium Chloride Carbon Dioxide Anion Gap BUN Creatinine Estimated GFR POC Glucose 210 H Random Glucose Calcium Phosphorus Magnesium - Procedures 12/12/17Angio with embolization of the Left distal IMax territory, performed by IR Dr. Schultz Assessment and Plan - Assessment (1) CVA (cerebral vascular accident) Code(s): I63.9 - Cerebral infarction, unspecified Status: Acute (2) Epistaxis Code(s): R04.0 - Epistaxis Status: Acute (3) Anemia due to blood loss Code(s): D50.0 - Iron deficiency anemia secondary to blood loss (chronic) Status: Acute (4) Anemia, iron deficiency Code(s): D50.9 - Iron deficiency anemia, unspecified Status: Chronic (5) Atrial fibrillation with controlled ventricular rate Code(s): I48.91 - Unspecified atrial fibrillation Status: Chronic - Plan 82-year-old white male with a history of chronic atrial fibrillation on home Xarelto, coronary artery disease, hypertension presented to the [place] emergency room with spontaneous nosebleed and was transferred here for ENT evaluation. During the course of the hospitalization, patient developed ischemic CVA. He has had recurrent epistaxis with severe bleeding requiring blood transfusion. Patient also had embolization but bleeding still recurs. At this point IR cannot offer anything else and ENT recommends transfer to a tertiary care center if the bleeding persists. Patient has competing needs including anticoagulation but he experienced significant bleeding. ENT placed another rhino rocket and bleeding seems to have stopped but he remains very confused and agitated from the stroke. He pulled out the rhino rocket. At risk for severe bleeding again. I had an extensive discussion with the patient's . She is certain that given his worsening mental status, he would not want to pursue any further aggressive care and she requested DNR status and to transition him to comfort care. Palliative care following and Hospice consulted. Family wants him to return to [facility]. Case management assisting with placement. Continue supportive care. //Recurrent spontaneous epistaxis: secondary to Xarelto/aspirin use. Patient is status post left internal maxillary embolization as well as right IMAX embolization due to persistent bleeding. - Xarelto previously stopped. Aspirin also on hold. However epistaxis persisted 12/31/17 and 01/01 recurrent epistaxis. I discussed the case with the on-call interventional radiologist Dr. Locke on 12/31. He reviewed the films of the previous embolization and procedure notes. He noted there is nothing else that can be offered from IR standpoint. - Appreciate ENT input. Patient had rhino rocket placed on the right on 01/01. Continued to have significant epistaxis and Transferred to ICU the night of . 01/02: Bleeding seems to resolve. rhino rocket in place. Continue. H&H stable post transfusion. Patient removed rhino rocket overnight. ENT following and indicated if bleeding recurs he would need to be transferred to [facility] but his refused any further aggressive measures. No further active bleeding at this point but still remain at high risk given his history of recurrent bleeding here. //Acute infarcts of the left cerebellum and in the left posterior cerebral artery distribution as well as right cerebellum Neurology recommendations appreciated MRI Brain with finding of Left cerebral and cerebellar as well as right cerebellar acute infarcts. Repeat Head CT 12/21/17 with Involving strokes cerebellar hemispheres left greater than right 2D echo with EF 50% Continue statin. Oral anticoagulation treatment currently contraindicated due to recent episode of epistaxis requiring interventions Continue with PT/OT Repeat CT on 12/30 after a fall revealed evolving stroke with hemorrhagic components. Appreciate Neurologist input. Continue to hold anticoagulation at this point. Aspirin on hold due to persistent and recurrent bleeding. = Continue to hold anticoagulation due to epistaxis. Patient is off restraints today at time of exam around 3 PM. //Metabolic and toxic encephalopathy due to acute CVA Continue to monitor. -Seroquel 25 mg twice daily for agitation. Still requiring restraints but being careful not to oversedate him. //Acute on chronic iron deficiency anemia and acute blood loss anemia: due to spontaneous nosebleed. Patient reports long hx of iron deficiency. - S/P PRBC transfusion. -Follow H&H. 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 -Aspirin was held due to epistaxis -continue home metoprolol //Atrial fibrillation: chronic, rate controlled -home Xarelto on hold due to severe epistaxis and anemia, continue home metoprolol //Diabetes mellitus type 2: chronic //Hypoglycemic readings 12/22 - no further hypoglycemic readings -Monitor Accu-checks and cover with SSI metformin twice daily //DVT prophylaxisbilateral SCDs, no anticoagulation due to bleed/anemia Discharge Planning: Need placement. CM following. SNF with Hospice in [place]. -Patient off restraints today. (4) Anemia, iron deficiency Qualifiers: Iron deficiency anemia type: unspecified iron deficiency Qualified Code(s): D50.9 - Iron deficiency anemia, unspecified
--- NOTE | 2018-01-05 19:05 | P.CONREH ---
History of Present Illness Service: Physical Medicine and Rehabilitation Reason for Consult: Comprehenive rehabiltation evaluation Primary Care Provider: UNKNOWN Chief Complaint: Nose bleeding PMFSH - History History Provided By: Medical Record - Medical History Medical History: Medical History (Last Reviewed 01/05/18 @ 08:25 by Wanda Laura Hothouse Worker, [employer]) Atrial fibrillation Colon polyps Coronary artery disease Diabetes Gastritis Glaucoma H/O endoscopy High cholesterol Hypertension Osteoarthritis - Surgical History Surgical History: Surgical History (Last Updated 01/03/18 @ 14:45 by Ritchie Villafuerte) History of arthroscopic procedure on shoulder History of colonoscopy Hx of CABG Hx of cholecystectomy Hx of hernia repair Hx of joint replacement - Family History Family History: Family History (Last Reviewed 01/01/18 @ 18:48 by Renan Bustillos MD) Other Family history normal - Tobacco History Second Hand Smoke Exposure: No Tobacco Use In Past 30 Days: No Smoking Status: Former smoker Tobacco Type: Cigarettes - Alcohol History How Often Do You Have a Drink Containing Alcohol: Never - Substance Use History Substance History: No History of Abuse - Travel History Recent Travel in the [place] Within the Last 8 Weeks: No Recent Travel Out of the Country Within the Last 8 Weeks: No - Immunization History Tetanus Immunization: Unsure Hx Influenza Vaccine This Season: Unable to Assess Medications and Allergies Active Medications: Active Medications Acetaminophen (Tylenol) 650 mg PO Q4H PRN PRN Reason: PAIN 1-10 AND/OR FEVER >101F Last Admin: 12/30/17 23:41 Dose: 650 mg Al Hydroxide/Mg Hydroxide (Milk Of Magnesia Liq) 30 ml PO Q12H PRN PRN Reason: Mild Constipation Aspirin (Ecotrin) 81 mg PO DAILY [facility] Last Admin: 12/31/17 09:06 Dose: 81 mg Bisacodyl (Dulcolax Supp) 10 mg RECTAL DAILY PRN PRN Reason: SEVERE CONSITIPATION Cephalexin Monohydrate (Keflex) 500 mg PO BID [facility] Last Admin: 01/05/18 10:57 Dose: 500 mg Dextrose (D50w Vial) 50 ml IV.PUSH UNSCH PRN PRN Reason: PER HYPOGLYCEMIA PROTOCOL Last Admin: 12/22/17 13:35 Dose: 50 ml Docusate Sodium (Colace) 100 mg PO DAILY PRN PRN Reason: Constipation Last Admin: 12/16/17 07:53 Dose: 100 mg Ferrous Sulfate (Ferosul) 325 mg PO BID@1200,1700 [facility] Last Admin: 01/05/18 18:22 Dose: 325 mg Finasteride (Proscar) 5 mg PO HS [facility] Last Admin: 01/04/18 21:17 Dose: 5 mg Furosemide (Lasix) 20 mg PO DAILY [facility] Last Admin: 01/05/18 10:57 Dose: 20 mg Glucagon (Glucagon Inj) 1 mg OTHER PRN PRN PRN Reason: for Hypoglycemia [facility] Last Admin: 12/22/17 17:44 Dose: 2.5 mg Hydrochlorothiazide (Hydrodiuril) 25 mg PO DAILY [facility] Last Admin: 01/05/18 10:57 Dose: 25 mg Insulin Aspart (Novolog Insulin Correctional Sugar Inj) 0 unit SQ [facility]; Protocol Last Admin: 01/05/18 18:23 Dose: 5 unit Lactulose (Lactulose Liq) 30 ml PO DAILY PRN PRN Reason: SEVERE CONSITIPATION Loratadine (Claritin) 10 mg PO DAILY [facility] Last Admin: 01/05/18 10:58 Dose: 10 mg Metformin HCl (Glucophage) 500 mg PO BIDPC [facility] Last Admin: 01/05/18 18:23 Dose: 500 mg Metoprolol Succinate (Toprol Xl) 25 mg PO BID [facility] Last Admin: 01/05/18 10:57 Dose: 25 mg Ondansetron HCl (Zofran Inj) 4 mg IV.PUSH Q6H PRN PRN Reason: NAUSEA OR VOMITING Last Admin: 12/12/17 15:44 Dose: 4 mg Pantoprazole Sodium (Protonix) 40 mg PO DAILY [facility] Last Admin: 01/05/18 10:58 Dose: 40 mg Potassium Chloride (Klor-Con 10) 10 meq PO BID [facility] Last Admin: 01/05/18 10:57 Dose: 10 meq Pravastatin Sodium (Pravachol) 40 mg PO QPM [facility] Last Admin: 01/05/18 18:22 Dose: 40 mg Quetiapine Fumarate (Seroquel) 25 mg PO BID [facility] Last Admin: 01/05/18 10:58 Dose: 25 mg Sennosides (Senokot) 17.2 mg PO Q12H PRN PRN Reason: Moderate Constipation Sodium Chloride (Ns Flush) 2 ml IV.FLUSH BID [facility] Last Admin: 01/05/18 10:58 Dose: 2 ml Sodium Chloride (Ns Flush) 2 ml IV.FLUSH PRN PRN PRN Reason: FLUSH AFTER USING IV ACCESS Allergies Allergy/AdvReac Type Severity Reaction Status Date / Time Sulfa (Sulfonamide Allergy Blister Verified 12/09/17 10:33 Antibiotics) Home Medications Medication Instructions Recorded Confirmed Type aspirin 81 mg PO QAM 12/09/17 12/09/17 History cyanocobalamin (vitamin B-12) 1,000 mcg PO DAILY 12/09/17 12/09/17 History [Vitamin B-12] docusate sodium [Colace] 100 mg PO DAILY PRN 12/09/17 12/09/17 History dutasteride [Avodart] 0.5 mg PO HS 12/09/17 12/09/17 History fluticasone [Flonase Allergy 2 spray INTRANASAL HS 12/09/17 12/09/17 History Relief] furosemide [Lasix] 20 mg PO DAILY 12/09/17 12/09/17 History glyburide-metformin 1 tab PO BID 12/09/17 12/09/17 History hydrochlorothiazide 25 mg PO QAM 12/09/17 12/09/17 History inulin 2 tab PO HS 12/09/17 12/09/17 History loratadine [Claritin] 10 mg PO QAM 12/09/17 12/09/17 History metoprolol succinate 25 mg PO BID 12/09/17 12/09/17 History [id number]-RF-lycopen-lutein 1 tab PO QPM 12/09/17 12/09/17 History [Centrum Silver] nitroglycerin 0.4 mg SUBLINGUAL Q5-15M PRN 12/09/17 12/09/17 History omeprazole 40 mg PO QAM 12/09/17 12/09/17 History potassium chloride [Klor-Con 10] 10 meq PO BID 12/09/17 12/09/17 History pravastatin 40 mg PO QPM 12/09/17 12/09/17 History rivaroxaban [Xarelto] 15 mg PO QPM 12/09/17 12/09/17 History silodosin [Rapaflo] 4 mg PO DAILY PRN 12/09/17 12/09/17 History temazepam [Restoril] 15 mg PO HS PRN 12/09/17 12/09/17 History Exam - Physical Examination Vital Signs / I&O: Vital Signs 01/04/18 20:00 01/04/18 21:00 01/05/18 00:00 Temperature 98.0 F 98.4 F Pulse Rate 94 H 87 97 H Respiratory Rate 21 16 Blood Pressure 149/69 H 146/103 H Pulse Oximetry 96 95 01/05/18 04:00 01/05/18 04:44 01/05/18 08:00 Temperature 97.7 F 97.7 F Pulse Rate 96 H 95 H 117 H Respiratory Rate 16 20 Blood Pressure 162/94 H 124/88 Pulse Oximetry 99 100 01/05/18 08:47 01/05/18 12:00 01/05/18 16:00 Temperature 97.8 F 97.5 F L Pulse Rate 99 H 101 H 89 Respiratory Rate 20 20 Blood Pressure 149/93 H 119/63 Pulse Oximetry 97 93 L Intake & Output 01/05/18 01/05/18 01/06/18 06:59 18:59 06:59 Intake Total 240 / 240 Balance 240 / 240 Weight 66.3 kg Intake: Oral 240 / 240 Other: # Incontinent Voids 1 Date of Last Bowel Movement 01/02/18 01/02/18 Intake & Output 01/03/18 01/04/18 01/05/18 01/06/18 06:59 06:59 06:59 06:59 Intake Total 750 / 750 850 / 850 240 / 240 Output Total 1425 / 1425 Balance -675 / -675 850 / 850 240 / 240 Weight 70.6 kg 65.1 kg 66.3 kg Date of Last Bowel Movement: 01/02/18 Results - Labs CBC & Chem 7: 01/05/18 07:02 01/05/18 07:02 Labs: Laboratory Results - last 24 hr 01/05/18 01/05/18 01/05/18 01:11 07:02 07:02 WBC 9.5 RBC 3.56 L Hgb 9.1 L Hct 29.1 L MCV 81.7 MCH 25.5 L MCHC 31.2 L RDW 20.4 H Plt Count 223 MPV 8.8 PT 13.3 H INR 1.3 APTT 25.9 Sodium Potassium Chloride Carbon Dioxide Anion Gap BUN Creatinine Estimated GFR POC Glucose 300 H Random Glucose Calcium Phosphorus Magnesium 01/05/18 01/05/18 01/05/18 07:02 08:25 13:45 WBC RBC Hgb Hct MCV MCH MCHC RDW Plt Count MPV PT INR APTT Sodium 143 Potassium 3.3 L Chloride 107 Carbon Dioxide 30.1 Anion Gap 6 BUN 29 H Creatinine 1.03 Estimated GFR 69 L POC Glucose 246 H 210 H Random Glucose 244 H Calcium 10.1 Phosphorus 2.8 Magnesium 2.0 01/05/18 18:07 WBC RBC Hgb Hct MCV MCH MCHC RDW Plt Count MPV PT INR APTT Sodium Potassium Chloride Carbon Dioxide Anion Gap BUN Creatinine Estimated GFR POC Glucose 285 H Random Glucose Calcium Phosphorus Magnesium Assessment and Plan (1) CVA (cerebral vascular accident) Status: Acute Code(s): I63.9 - Cerebral infarction, unspecified - Plan Recommendations: 1. PT ,obilizing and mod-max assist with transfers 2. OT for ADL's and currently dependent 3. SCD's in place for VTE prophylaxis 4. Case management working on discharge planning in conjunction with family and planning for skilled placement versus home with attendant care 5. Will follow while hospitalized and at discharge as appropriate Thank you for this consult.
[2018-01-05] MEDS: Docusate Sodium 100 MG Capsule PO PRN (20:54)
[2018-01-05] MEDS: Finasteride 5 MG Tablet PO SCH (20:54)
[2018-01-06 06:38] LABS: Hematocrit 30.4 % (39.0-51.0); Hemoglobin 9.4 gm/dL (13.0-17.0); Mean Corpuscular HGB Conc 31.1 % (32.0-36.0); Mean Corpuscular Hemoglobin 25.2 pg (27.0-34.0); Mean Corpuscular Volume 81.2 fL (80.0-100.0); Mean Platelet Volume 9.2 fL (7.0-11.0); Platelet Count 209 th/mm3 (150-450); Red Blood Count 3.74 mil/mm3 (4.50-5.90); Red Cell Distribution Width 20.8 % (11.6-17.2); White Blood Count 11.6 th/mm3 (4.0-11.0)
[2018-01-06 06:48] LABS: Activated Partial Thrombo Time 24.1 sec (23.4-31.7); INR 1.3 Ratio; Prothrombin Time 12.8 sec (9.8-11.6)
[2018-01-06 06:55] LABS: Calcium 10.3 mg/dL (8.5-10.1); Carbon Dioxide 29.2 meq/L (21.0-32.0); Magnesium 2.3 mg/dL (1.5-2.5); Phosphorus 2.7 mg/dL (2.5-4.9); Potassium 3.4 meq/L (3.5-5.1)
[2018-01-06] MEDS: Loratadine 10 MG Tablet PO SCH (09:12)
[2018-01-06] MEDS: QUEtiapine 25 MG Tablet PO SCH ×2 (09:12→21:42)
[2018-01-06] MEDS: hydroCHLOROthiazide 25 MG Tablet PO SCH (09:12)
[2018-01-06] MEDS: Insulin NovoLOG Aspart Correctional Sugar Inj SQ SCH ×4 (09:13→21:56)
[2018-01-06] MEDS: Furosemide 20 MG Tablet PO SCH (09:13)
[2018-01-06] MEDS: Sodium Chloride 0.9% 2 ML Flush BID IV.FLUSH SCH ×2 (09:13→21:45)
[2018-01-06] MEDS: Ferrous Sulfate 325 MG Tablet PO SCH ×2 (13:52→18:33)
--- NOTE | 2018-01-06 13:53 | P.PNIM ---
Subjective Interval history: Patient sleeping, wakes up for exam. Nonverbal, however obeys commands. Patient has been off restraints since yesterday. Discussed with in room. Physical Exam Vital signs: Vital Signs 01/05/18 16:00 01/05/18 20:00 01/05/18 20:30 Temperature 97.5 F L 98.4 F Pulse Rate 89 102 H 85 Respiratory Rate 20 16 Blood Pressure 119/63 149/92 H Pulse Oximetry 93 L 96 01/06/18 00:00 01/06/18 02:24 01/06/18 04:00 Temperature 97.1 F L 98.4 F Pulse Rate 105 H 67 Respiratory Rate 19 18 18 Blood Pressure 140/87 132/70 Pulse Oximetry 95 99 01/06/18 04:30 01/06/18 08:00 01/06/18 12:00 Temperature 97.2 F L 97.9 F Pulse Rate 102 H 108 H 89 Respiratory Rate 18 18 Blood Pressure 137/86 130/80 Pulse Oximetry 98 97 Intake & Output 01/05/18 01/06/18 01/06/18 18:59 06:59 18:59 Intake Total 480 / 480 Balance 480 / 480 Weight 66.1 kg Intake: Oral 480 / 480 Other: # Incontinent Voids 1 Date of Last Bowel Movement 01/02/18 01/02/18 Narrative: GENERAL: Sleeping, wakes up for exam. Confused and disoriented, however cooperative. SKIN: Warm and dry. HEAD: Normocephalic. EYES: No scleral icterus. No injection or drainage. NECK: Supple, trachea midline. No JVD. CARDIOVASCULAR: Regular rate and rhythm without murmurs, gallops, or rubs. RESPIRATORY: Breath sounds equal bilaterally. No accessory muscle use. GASTROINTESTINAL: Abdomen soft, non-tender, nondistended. MUSCULOSKELETAL: No cyanosis, or edema. BACK: Nontender without obvious deformity. No CVA tenderness. - Urinary Catheter Management Condom Cath placed during this visit: no Results - Labs CBC & Chem 7: 01/06/18 05:29 01/06/18 05:29 Laboratory Results - last 24 hr 01/05/18 01/05/18 01/06/18 18:07 20:59 05:29 WBC 11.6 H RBC 3.74 L Hgb 9.4 L Hct 30.4 L MCV 81.2 MCH 25.2 L MCHC 31.1 L RDW 20.8 H Plt Count 209 MPV 9.2 PT INR APTT Sodium Potassium Chloride Carbon Dioxide Anion Gap BUN Creatinine Estimated GFR POC Glucose 285 H 238 H Random Glucose Calcium Phosphorus Magnesium 01/06/18 01/06/18 01/06/18 05:29 05:29 09:03 WBC RBC Hgb Hct MCV MCH MCHC RDW Plt Count MPV PT 12.8 H INR 1.3 APTT 24.1 Sodium 145 Potassium 3.4 L Chloride 107 Carbon Dioxide 29.2 Anion Gap 9 BUN 38 H Creatinine 0.97 Estimated GFR 74 L POC Glucose 247 H Random Glucose 232 H Calcium 10.3 H Phosphorus 2.7 Magnesium 2.3 - Procedures 12/12/17Angio with embolization of the Left distal IMax territory, performed by IR Dr. Schultz Assessment and Plan - Assessment (1) CVA (cerebral vascular accident) Code(s): I63.9 - Cerebral infarction, unspecified Status: Acute (2) Epistaxis Code(s): R04.0 - Epistaxis Status: Acute (3) Anemia due to blood loss Code(s): D50.0 - Iron deficiency anemia secondary to blood loss (chronic) Status: Acute (4) Anemia, iron deficiency Code(s): D50.9 - Iron deficiency anemia, unspecified Status: Chronic (5) Atrial fibrillation with controlled ventricular rate Code(s): I48.91 - Unspecified atrial fibrillation Status: Chronic - Plan 82-year-old white male with a history of chronic atrial fibrillation on home Xarelto, coronary artery disease, hypertension presented to the [place] emergency room with spontaneous nosebleed and was transferred here for ENT evaluation. During the course of the hospitalization, patient developed ischemic CVA. He has had recurrent epistaxis with severe bleeding requiring blood transfusion. Patient also had embolization but bleeding still recurs. At this point IR cannot offer anything else and ENT recommends transfer to a tertiary care center if the bleeding persists. Patient has competing needs including anticoagulation but he experienced significant bleeding. ENT placed another rhino rocket and bleeding seems to have stopped but he remains very confused and agitated from the stroke. He pulled out the rhino rocket. At risk for severe bleeding again. I had an extensive discussion with the patient's . She is certain that given his worsening mental status, he would not want to pursue any further aggressive care and she requested DNR status and to transition him to comfort care. Palliative care following and Hospice consulted. Family wants him to return to [facility]. Case management assisting with placement. Continue supportive care. //Recurrent spontaneous epistaxis: secondary to Xarelto/aspirin use. Patient is status post left internal maxillary embolization as well as right IMAX embolization due to persistent bleeding. - Xarelto previously stopped. Aspirin also on hold. However epistaxis persisted 12/31/17 and 01/01 recurrent epistaxis. I discussed the case with the on-call interventional radiologist Dr. Locke on 12/31. He reviewed the films of the previous embolization and procedure notes. He noted there is nothing else that can be offered from IR standpoint. - Appreciate ENT input. Patient had rhino rocket placed on the right on 01/01. Continued to have significant epistaxis and Transferred to ICU the night of . 01/02: Bleeding seems to resolve. rhino rocket in place. Continue. H&H stable post transfusion. Patient removed rhino rocket overnight. ENT following and indicated if bleeding recurs he would need to be transferred to [facility] but his refused any further aggressive measures. No further active bleeding at this point but still remain at high risk given his history of recurrent bleeding here. //Acute infarcts of the left cerebellum and in the left posterior cerebral artery distribution as well as right cerebellum Neurology recommendations appreciated MRI Brain with finding of Left cerebral and cerebellar as well as right cerebellar acute infarcts. Repeat Head CT 12/21/17 with Involving strokes cerebellar hemispheres left greater than right 2D echo with EF 50% Continue statin. Oral anticoagulation treatment currently contraindicated due to recent episode of epistaxis requiring interventions Continue with PT/OT Repeat CT on 12/30 after a fall revealed evolving stroke with hemorrhagic components. Appreciate Neurologist input. Continue to hold anticoagulation at this point. Aspirin on hold due to persistent and recurrent bleeding. =01/06 patient is off restraints since yesterday //Metabolic and toxic encephalopathy due to acute CVA Continue to monitor. -Seroquel 25 mg twice daily for agitation. Still requiring restraints but being careful not to oversedate him. //Acute on chronic iron deficiency anemia and acute blood loss anemia: due to spontaneous nosebleed. Patient reports long hx of iron deficiency. - S/P PRBC transfusion. -Follow H&H. 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 -Continue holding aspirin due to epistaxis. -continue home metoprolol //Atrial fibrillation: chronic, rate controlled -home Xarelto on hold due to severe epistaxis and anemia, continue home metoprolol //Diabetes mellitus type 2: chronic //Hypoglycemic readings 12/22 - no further hypoglycemic readings -Monitor Accu-checks and cover with SSI metformin twice daily //DVT prophylaxisbilateral SCDs, no anticoagulation due to bleed/anemia Discharge Planning: Need placement. CM following. SNF with Hospice in [place]. -01/06. Patient off restraints since yesterday. (4) Anemia, iron deficiency Qualifiers: Iron deficiency anemia type: unspecified iron deficiency Qualified Code(s): D50.9 - Iron deficiency anemia, unspecified
--- NOTE | 2018-01-06 18:27 | P.PNNEU ---
Subjective Subjective Comments: no new neurologic sx Active Medications: Active Medications Acetaminophen (Tylenol) 650 mg PO Q4H PRN PRN Reason: PAIN 1-10 AND/OR FEVER >101F Last Admin: 12/30/17 23:41 Dose: 650 mg Al Hydroxide/Mg Hydroxide (Milk Of Magnesia Liq) 30 ml PO Q12H PRN PRN Reason: Mild Constipation Last Admin: 01/05/18 19:46 Dose: 30 ml Aspirin (Ecotrin) 81 mg PO DAILY [facility] Last Admin: 12/31/17 09:06 Dose: 81 mg Bisacodyl (Dulcolax Supp) 10 mg RECTAL DAILY PRN PRN Reason: SEVERE CONSITIPATION Cephalexin Monohydrate (Keflex) 500 mg PO BID [facility] Last Admin: 01/06/18 09:12 Dose: 500 mg Dextrose (D50w Vial) 50 ml IV.PUSH UNSCH PRN PRN Reason: PER HYPOGLYCEMIA PROTOCOL Last Admin: 12/22/17 13:35 Dose: 50 ml Docusate Sodium (Colace) 100 mg PO DAILY PRN PRN Reason: Constipation Last Admin: 01/05/18 20:54 Dose: 100 mg Ferrous Sulfate (Ferosul) 325 mg PO BID@1200,1700 [facility] Last Admin: 01/06/18 13:52 Dose: 325 mg Finasteride (Proscar) 5 mg PO HS [facility] Last Admin: 01/05/18 20:54 Dose: 5 mg Furosemide (Lasix) 20 mg PO DAILY [facility] Last Admin: 01/06/18 09:13 Dose: 20 mg Glucagon (Glucagon Inj) 1 mg OTHER PRN PRN PRN Reason: for Hypoglycemia Protocol [facility] Last Admin: 12/22/17 17:44 Dose: 2.5 mg Hydrochlorothiazide (Hydrodiuril) 25 mg PO DAILY [facility] Last Admin: 01/06/18 09:12 Dose: 25 mg Insulin Aspart (Novolog Insulin Correctional Sugar Inj) 0 unit SQ [facility]; Protocol Last Admin: 01/06/18 13:51 Dose: 5 unit Lactulose (Lactulose Liq) 30 ml PO DAILY PRN PRN Reason: SEVERE CONSITIPATION Loratadine (Claritin) 10 mg PO DAILY [facility] Last Admin: 01/06/18 09:12 Dose: 10 mg Metformin HCl (Glucophage) 500 mg PO BIDPC [facility] Last Admin: 01/06/18 09:12 Dose: 500 mg Metoprolol Succinate (Toprol Xl) 25 mg PO BID [facility] Last Admin: 01/06/18 09:12 Dose: 25 mg Ondansetron HCl (Zofran Inj) 4 mg IV.PUSH Q6H PRN PRN Reason: NAUSEA OR VOMITING Last Admin: 12/12/17 15:44 Dose: 4 mg Pantoprazole Sodium (Protonix) 40 mg PO DAILY [facility] Last Admin: 01/06/18 09:12 Dose: 40 mg Potassium Chloride (Klor-Con 10) 10 meq PO BID [facility] Last Admin: 01/06/18 09:12 Dose: 10 meq Pravastatin Sodium (Pravachol) 40 mg PO QPM [facility] Last Admin: 01/05/18 18:22 Dose: 40 mg Quetiapine Fumarate (Seroquel) 25 mg PO BID [facility] Last Admin: 01/06/18 09:12 Dose: 25 mg Sennosides (Senokot) 17.2 mg PO Q12H PRN PRN Reason: Moderate Constipation Sodium Chloride (Ns Flush) 2 ml IV.FLUSH BID [facility] Last Admin: 01/06/18 09:13 Dose: 2 ml Sodium Chloride (Ns Flush) 2 ml IV.FLUSH PRN PRN PRN Reason: FLUSH AFTER USING IV ACCESS Allergies/Adverse Reactions: Allergies Allergy/AdvReac Type Severity Reaction Status Date / Time Sulfa (Sulfonamide Allergy Blister Verified 12/09/17 10:33 Antibiotics) Physical Exam Vital signs: Vital Signs 01/05/18 20:00 01/05/18 20:30 01/06/18 00:00 Temperature 98.4 F 97.1 F L Pulse Rate 102 H 85 105 H Respiratory Rate 16 19 Blood Pressure 149/92 H 140/87 Pulse Oximetry 96 95 01/06/18 02:24 01/06/18 04:00 01/06/18 04:30 Temperature 98.4 F Pulse Rate 67 102 H Respiratory Rate 18 18 Blood Pressure 132/70 Pulse Oximetry 99 01/06/18 08:00 01/06/18 12:00 01/06/18 16:00 Temperature 97.2 F L 97.9 F 97.5 F L Pulse Rate 108 H 73 99 H Respiratory Rate 18 18 18 Blood Pressure 137/86 130/80 125/59 L Pulse Oximetry 98 97 96 Intake & Output 01/05/18 01/06/18 01/06/18 18:59 06:59 18:59 Intake Total 480 / 480 Balance 480 / 480 Weight 66.1 kg Intake: Oral 480 / 480 Other: # Incontinent Voids 1 1 Date of Last Bowel Movement 01/02/18 01/02/18 01/05/18 - Routine Neurological Exam lethargic but arousable , follow commands CN intact MOTOR 4/5 BUE - Urinary Catheter Management Condom Cath placed during this visit: no Objective Laboratory Results - last 24 hr 01/05/18 01/06/18 01/06/18 20:59 05:29 05:29 WBC 11.6 H RBC 3.74 L Hgb 9.4 L Hct 30.4 L MCV 81.2 MCH 25.2 L MCHC 31.1 L RDW 20.8 H Plt Count 209 MPV 9.2 PT 12.8 H INR 1.3 APTT 24.1 Sodium Potassium Chloride Carbon Dioxide Anion Gap BUN Creatinine Estimated GFR POC Glucose 238 H Random Glucose Calcium Phosphorus Magnesium 01/06/18 01/06/18 01/06/18 05:29 09:03 13:44 WBC RBC Hgb Hct MCV MCH MCHC RDW Plt Count MPV PT INR APTT Sodium 145 Potassium 3.4 L Chloride 107 Carbon Dioxide 29.2 Anion Gap 9 BUN 38 H Creatinine 0.97 Estimated GFR 74 L POC Glucose 247 H 253 H Random Glucose 232 H Calcium 10.3 H Phosphorus 2.7 Magnesium 2.3 Review/Management - Diagnosis (1) CVA (cerebral vascular accident) Code(s): I63.9 - Cerebral infarction, unspecified Status: Acute Current Visit: Yes - Review/Management Plan: 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 unable to anticoagulate at this time due to severe recent epistaxis. Continue asa neuro exam is stable 12/30/17 would continue to hold anticoag with ct finding and change to 81mg asa repeat CT brain to follow up on hemorrhage. unable to anticoagulate due to recent severe epistaxis and hemorrhagic conversion of cva ok to transfer to rehab tomorrow if ct stable
--- NOTE | 2018-01-06 21:36 | CT ---
EXAM DATE: 01/06/2018 9:28 PM EST AGE/SEX: 82 years / Male INDICATIONS: Patient with history of recent bilateral cerebellar and left occipital lobe infarcts. F ollow-up hemorrhagic transformation in the left cerebellar and posterior cerebral infarcts. CLINICAL DATA: This is the patient's subsequent encounter. Patient reports that signs and symptoms h ave been present for 1 week and indicates a pain score of 0/10. MEDICAL/SURGICAL HISTORY: Cardiovascular disease. Diabetes. Hypertension. AFIB CABG. Cholecyst ectomy. Hernia repair. RADIATION DOSE: 56.35 CTDI (mGy) COMPARISON: [facility] [place], 12/30/[place]. . TECHNIQUE: CT of the head without contrast. Using automated exposure control and adjustment of the mA and/or kV according to patient size, radiation dose was kept as low as reasonably achievable to ob tain optimal diagnostic quality images. DICOM format image data is available electronically for revi ew and comparison. FINDINGS: The previously noted hemorrhagic transformation in the left occipital lobe and cerebellar hemisphere has decreased mildly since the prior study. Surrounding edema is again noted. There is subtle low den sity in the right cerebellar infarct. There is no new hemorrhage, mass effect or midline shift. Diffu se moderate atrophic changes are again noted. Chronic small vessel ischemic changes are again noted. A scalp hematoma is again noted over the right frontal and orbital region which is improved. The bone windows demonstrate no evidence of fracture. CONCLUSION: 1. Mild interval improvement in hemorrhagic transformation in the left occipital lobe and cerebellar hemisphere. 2. No new hemorrhage or mass effect. 3. Interval improvement in scalp hematoma. 4. Atrophy and chronic small vessel ischemic changes again noted. . Electronically signed by: James Crisostomo MD 01/06/2018 9:35 PM EST
[2018-01-06] MEDS: Finasteride 5 MG Tablet PO SCH (21:42)
[2018-01-07 06:09] LABS: Hematocrit 27.5 % (39.0-51.0); Mean Corpuscular HGB Conc 32.7 % (32.0-36.0); Mean Corpuscular Hemoglobin 26.1 pg (27.0-34.0); Mean Corpuscular Volume 79.8 fL (80.0-100.0); Mean Platelet Volume 8.9 fL (7.0-11.0); Platelet Count 211 th/mm3 (150-450); Red Blood Count 3.45 mil/mm3 (4.50-5.90); Red Cell Distribution Width 20.6 % (11.6-17.2); White Blood Count 10.6 th/mm3 (4.0-11.0)
[2018-01-07 06:16] LABS: Activated Partial Thrombo Time 26.7 sec (23.4-31.7); INR 1.3 Ratio; Prothrombin Time 12.7 sec (9.8-11.6)
[2018-01-07 06:37] LABS: Calcium 10.1 mg/dL (8.5-10.1); Carbon Dioxide 31.5 meq/L (21.0-32.0); Magnesium 2.1 mg/dL (1.5-2.5); Phosphorus 2.8 mg/dL (2.5-4.9); Potassium 3.4 meq/L (3.5-5.1)
[2018-01-07] MEDS: Furosemide 20 MG Tablet PO SCH (09:06)
[2018-01-07] MEDS: Insulin NovoLOG Aspart Correctional Sugar Inj SQ SCH ×3 (09:06→18:29)
[2018-01-07] MEDS: hydroCHLOROthiazide 25 MG Tablet PO SCH (09:06)
[2018-01-07] MEDS: Loratadine 10 MG Tablet PO SCH (09:06)
[2018-01-07] MEDS: QUEtiapine 25 MG Tablet PO SCH (09:06)
[2018-01-07] MEDS: Sodium Chloride 0.9% 2 ML Flush BID IV.FLUSH SCH (09:07)
--- NOTE | 2018-01-07 11:13 | P.DS ---
Date of admission: 12/12/17 10:13 Primary care physician: UNKNOWN Anticipated date of discharge: 12/29/17 Brief History from admission: 82-year-old white male with a history of atrial fibrillation on chronic anticoagulation Xarelto, coronary artery disease, hypertension who had spontaneous nosebleed starting at 1:00 yesterday afternoon who went to [facility] emergency room and now transferred here in [facility] emergency room for evaluation with ENT consult. Since packing was done he still has had on and off nasal bleeding and currently has a rhino pack again. Of note, patient was also diagnosed with iron deficiency anemia and had a comprehensive endoscopy and colonoscopy performed 1 week ago which showed gastritis and colon polyps. He states at that time he did not require transfusion. He denies any heart palpitations nor any dizziness or nor shortness of breath at this time. He denies any nasal pain at this time. He has not taken his home Xarelto since he went to the emergency room. DS: Diagnosis - Discharge Diagnosis (1) CVA (cerebral vascular accident) Status: Acute (2) Epistaxis Status: Acute (3) Anemia due to blood loss Status: Acute (4) Anemia, iron deficiency Status: Chronic (5) Atrial fibrillation with controlled ventricular rate Status: Chronic DS: Summary Hospital Course: 82-year-old white male with a history of chronic atrial fibrillation on home Xarelto, coronary artery disease, hypertension presented to the [facility] emergency room with spontaneous nosebleed and was transferred here for ENT evaluation. During the course of the hospitalization, patient developed ischemic CVA. He has had recurrent epistaxis with severe bleeding requiring blood transfusion. Patient also had embolization but bleeding still recurs. At this point IR cannot offer anything else and ENT recommends transfer to a tertiary care center if the bleeding persists. Patient has competing needs including anticoagulation but he experienced significant bleeding. ENT placed another rhino rocket and bleeding seems to have stopped but he remains very confused and agitated from the stroke. He pulled out the rhino rocket. At risk for severe bleeding again. I had an extensive discussion with the patient's . She is certain that given his worsening mental status, he would not want to pursue any further aggressive care and she requested DNR status and to transition him to comfort care. Palliative care following and Hospice consulted. Family wants him to return to [facility]. Case management assisting with placement. Continue supportive care. //Recurrent spontaneous epistaxis: secondary to Xarelto/aspirin use. Patient is status post left internal maxillary embolization as well as right IMAX embolization due to persistent bleeding. - Xarelto previously stopped. Aspirin also on hold. However epistaxis persisted 12/31/17 and 01/01 recurrent epistaxis. I discussed the case with the on-call interventional radiologist Dr. Locke on 12/31. He reviewed the films of the previous embolization and procedure notes. He noted there is nothing else that can be offered from IR standpoint. - Appreciate ENT input. Patient had rhino rocket placed on the right on 01/01. Continued to have significant epistaxis and Transferred to ICU the night of . 01/02: Bleeding seems to resolve. rhino rocket in place. Continue. H&H stable post transfusion. Patient removed rhino rocket overnight. ENT following and indicated if bleeding recurs he would need to be transferred to [facility] but his refused any further aggressive measures. No further active bleeding at this point but still remain at high risk given his history of recurrent bleeding here. = Epistaxis resolved. Does not return off of anticoagulation. Continue to avoid anticoagulation. //Acute infarcts of the left cerebellum and in the left posterior cerebral artery distribution as well as right cerebellum Neurology recommendations appreciated MRI Brain with finding of Left cerebral and cerebellar as well as right cerebellar acute infarcts. Repeat Head CT 12/21/17 with Involving strokes cerebellar hemispheres left greater than right 2D echo with EF 50% Continue statin. Oral anticoagulation treatment currently contraindicated due to recent episode of epistaxis requiring interventions Continue with PT/OT Repeat CT on 12/30 after a fall revealed evolving stroke with hemorrhagic components. Appreciate Neurologist input. Continue to hold anticoagulation at this point. Aspirin on hold due to persistent and recurrent bleeding. =01/06 patient is off restraints since 01/05. = 01/07. Repeat CT brain with interval mild improvement in intraparenchymal hemorrhage. Continue to avoid anticoagulation due to epistaxis as well as hemorrhagic transformation. Will need to follow-up with neurology as outpatient. //Metabolic and toxic encephalopathy due to acute CVA Continue to monitor. -Seroquel 25 mg twice daily for agitation. Still requiring restraints but being careful not to oversedate him. //Acute on chronic iron deficiency anemia and acute blood loss anemia: due to spontaneous nosebleed. Patient reports long hx of iron deficiency. - S/P PRBC transfusion. -Follow H&H. 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 -Continue holding aspirin due to epistaxis. -continue home metoprolol //Atrial fibrillation: chronic, rate controlled -home Xarelto on hold due to severe epistaxis and anemia, continue home metoprolol //Diabetes mellitus type 2: chronic //Hypoglycemic readings 12/22 - no further hypoglycemic readings -Monitor Accu-checks and cover with SSI metformin twice daily //DVT prophylaxisbilateral SCDs, no anticoagulation due to bleed/anemia Discharge Planning: SNF with Hospice in [place]. - Time Spent with Patient Total time spent providing and/or coordinating discharge services: Greater than 30 minutes - Quality: VTE Deep Vein Thrombosis/Pulmonary Embolism Present on Admission: No Exam Vital signs: Vital Signs 01/06/18 12:00 01/06/18 16:00 01/06/18 20:00 Temperature 97.9 F 97.5 F L 97.6 F Pulse Rate 73 99 H 111 H Respiratory Rate 18 18 18 Blood Pressure 130/80 125/59 L 107/69 Pulse Oximetry 97 96 98 01/07/18 00:00 01/07/18 02:54 01/07/18 04:00 Temperature 98 F 97.3 F L Pulse Rate 75 88 Respiratory Rate 18 16 18 Blood Pressure 115/61 115/79 Pulse Oximetry 95 97 01/07/18 08:00 Temperature 98.2 F Pulse Rate 84 Respiratory Rate 18 Blood Pressure 130/64 Pulse Oximetry 98 Intake & Output 01/06/18 01/07/18 01/07/18 18:59 06:59 18:59 Weight 67.2 kg Other: # Incontinent Voids 1 Date of Last Bowel Movement 01/05/18 Results Procedures completed during hospitalization: 12/12/17Angio with embolization of the Left distal IMax territory, performed by IR Dr. Schultz Labs on day of discharge: Labs from last 24 hours 01/07/18 01/07/18 01/07/18 07:43 05:03 05:03 WBC RBC Hgb Hct MCV MCH MCHC RDW Plt Count MPV PT 12.7 H INR 1.3 APTT 26.7 Sodium 144 Potassium 3.4 L Chloride 107 Carbon Dioxide 31.5 Anion Gap 6 BUN 40 H Creatinine 1.05 Estimated GFR 68 L POC Glucose 184 H Random Glucose 131 H D Calcium 10.1 Phosphorus 2.8 Magnesium 2.1 01/07/18 01/06/18 01/06/18 05:03 20:27 18:32 WBC 10.6 RBC 3.45 L Hgb 9.0 L Hct 27.5 L MCV 79.8 L MCH 26.1 L MCHC 32.7 RDW 20.6 H Plt Count 211 MPV 8.9 PT INR APTT Sodium Potassium Chloride Carbon Dioxide Anion Gap BUN Creatinine Estimated GFR POC Glucose 265 H 234 H Random Glucose Calcium Phosphorus Magnesium 01/06/18 13:44 WBC RBC Hgb Hct MCV MCH MCHC RDW Plt Count MPV PT INR APTT Sodium Potassium Chloride Carbon Dioxide Anion Gap BUN Creatinine Estimated GFR POC Glucose 253 H Random Glucose Calcium Phosphorus Magnesium - Impressions ITS Impressions Cerebral Angiography 12/12/17 00:00 CONCLUSION: 1. Successful embolization of the vascular bed supplying the posterior nasopharynx. The patient tolerated the procedure well. At the conclusion of the procedure there was no evidence of active bleeding. Head CTA 12/18/17 00:00 CONCLUSION: 1. Negative CTA Head. . Neck CTA 12/18/17 00:00 CONCLUSION: 1. Negative CTA Carotid. Head MRI 12/18/17 00:40 CONCLUSION: 1. Left cerebral and cerebellar as well as right cerebellar acute infarcts. 2. Atrophy and white matter disease. Head MRA 12/18/17 00:40 CONCLUSION: 1. Negative MRA [place] ([place]) non contrast. Head CT 01/06/18 00:00 CONCLUSION: 1. Mild interval improvement in hemorrhagic transformation in the left occipital lobe and cerebellar hemisphere. 2. No new hemorrhage or mass effect. 3. Interval improvement in scalp hematoma. 4. Atrophy and chronic small vessel ischemic changes again noted. . Discharge Plan - Discharge Disposition Patient Disposition: Discharge to SNF - Discharge Condition Condition: Stable - Discharge Order Discharge Orders: Discharge Order (Routine); Ordered 01/07/18 Ordered By: Omar Alejandre - Discharge Details Anticipated Discharge Date: 12/29/17 Discharge Comment: When placement arranged - Physicians Team Primary Care Provider: UNKNOWN, Attending Provider: Omar Alejandre Other Providers: Jesus Gonzalez MD, PhD ; Susanne Hanks MD ; Frances Golden ; Jordin Fields MD ; Renan Bustillos MD ; Annabella Villeda MD
[2018-01-07] MEDS: Ferrous Sulfate 325 MG Tablet PO SCH ×2 (13:19→18:29)
[2018-01-07 16:39] VITALS: BP 148/93; PULSE 81; RESP 18; TEMP 97.4; O2SAT 97
== END 2018-01-07 16:38 ==
LOC: NEPC 10:17 → NEDA 12:46 → INTOOBSV 12:46 → NEPFCDU 14:14 → HIMC 12-12 16:20 → N05 12-24 15:38 → HIMC 01-01 17:25 → N05 01-02 22:01
PROVIDERS: ADMIT Internal Medicine; ATTEND Internal Medicine
DX: Z79.84 Long term (current) use of oral hypoglycemic drugs; I25.10 Atherosclerotic heart disease of native coronary artery without angina pectoris; R04.0 Epistaxis; S00.03XA Contusion of scalp, initial encounter; Z95.1 Presence of aortocoronary bypass graft; G93.41 Metabolic encephalopathy; Z79.82 Long term (current) use of aspirin; I61.8 Other nontraumatic intracerebral hemorrhage; M19.90 Unspecified osteoarthritis, unspecified site; E78.00 Pure hypercholesterolemia, unspecified; H40.9 Unspecified glaucoma; Z96.60 Presence of unspecified orthopedic joint implant; W19.XXXA Unspecified fall, initial encounter; I48.2 Chronic atrial fibrillation; E11.649 Type 2 diabetes mellitus with hypoglycemia without coma; D62 Acute posthemorrhagic anemia; Z66 Do not resuscitate; D68.32 Hemorrhagic disorder due to extrinsic circulating anticoagulants; I63.432 Cerebral infarction due to embolism of left posterior cerebral artery; K92.0 Hematemesis; I10 Essential (primary) hypertension; Z87.891 Personal history of nicotine dependence; T45.515A Adverse effect of anticoagulants, initial encounter; Z78.1 Physical restraint status